=== PATIENT | female | born 1990 | race Caucasian/White ===

== ENCOUNTER 2018-11-26 10:43 | Outpatient (REF) | payer BC, SELFPAY ==
[2018-11-26 21:24] LABS: Abs Immature Grans 0.02 k/cumm (0.0-0.09); Absolute Basophil Count 0.03 k/cumm (0.0-0.2); Absolute Eosinophil Count 0.31 k/cumm (0.0-0.7); Absolute Neutrophil Count 3.67 k/cumm (1.2-6.7); Basophils % 0.4; Eosinophils % 3.9; HCT 33.4 % (36.0-46.0); HGB 10.2 g/dL (12.0-15.5); Immature Grans % 0.3; Lymphocytes % 42.9; Mean Corp. HGB Concentration 30.5 g/dL (32.0-36.0); Mean Corpuscular Hemoglobin 22.7 pg (27.0-33.0); Mean Corpuscular Volume 74.4 fL (80-95); Mean Platelet Volume 8.8 fL (8.0-11.0); Monocytes % 6.3; Neutrophils % 46.2; Platelet Count 463 x1000/uL (130-400); RBC 4.49 m/cumm (4.00-5.20); RBC Distribution Width 17.4 % (11.7-14.6); White Blood Cell Count 7.93 k/cumm (4.4-10.8)
[2018-11-26 21:38] LABS: Basophilic Stippling Present; Microcytosis 1+; Polychromasia Present
[2018-11-26 21:41] LABS: Ferritin 4 ng/mL (8-388); TSH 6.12 uIU/mL (0.358-3.74)
[2018-11-28 07:28] LABS: Vitamin D 25 Total 36.8 ng/ml (30-100)
== END 2018-11-26 11:03 ==
LOC: NCHCN 10:43
PROVIDERS: PCP Specialist/Technologist Athletic Trainer; Visit Provider Nurse Practitioner Family
DX: E03.9 Hypothyroidism, unspecified (principal); G25.81 Restless legs syndrome; G47.9 Sleep disorder, unspecified; F41.8 Other specified anxiety disorders
CPT/HCPCS: 82306; 82728; 84443; 85025

== ENCOUNTER 2018-11-26 14:11 | Outpatient (REF) | payer BC, SELFPAY ==
--- NOTE | 2018-11-26 13:30 | PAPFT_PTH ---
PATIENT: Jeanette Moise LOC: [facility] U#:[id number] AGE/SX: 28/F ROOM: RE11/26/[address]: ALEX Zarate : 1990 BED: DIS: 11/26/2018 SPEC #: [id number] RECD: 11/26/18 17:53 STATUS: YELITZA REHandy #: [id number] MICHAEL: 11/26/18 13:[address]: Mia Lozano DEPT: [facility] Cytology RECD BY: Sandra Stuart ENTERED: 11/26/18 17:54 SP TYPE: PAPFT OTHR DR: Russ Blount Tissues: 1 - CX/ENDOCX FOR PAP SMEARS Procedures: PAP THIN PREP/UVM Screening Comments: [id number]
== END 2018-11-26 14:31 ==
LOC: LBN 14:11
PROVIDERS: PCP Specialist/Technologist Athletic Trainer; Visit Provider Nurse Practitioner Family
DX: Z12.4 Encounter for screening for malignant neoplasm of cervix (principal); Z11.51 Encounter for screening for human papillomavirus (HPV)
CPT/HCPCS: 88142

== ENCOUNTER 2019-04-01 02:54 | Emergency (ER) | payer BC, SELFPAY ==
[2019-04-01 02:58] VITALS: BP 125/74; PULSE 88; RESP 21; TEMP 36.6; O2SAT 96
--- NOTE | 2019-04-01 03:07 | ED.GENADUL_ITS ---
Discharge Plan Disposition Patient Disposition: HOME Condition: Good Discharge Details Chief Complaint: Abd Prob Clinical Impression: Epigastric abdominal pain Primary Care Provider: Tita Fabian ED Provider: Rigo Knutson [place] Meds and New Rx's Prescriptions: New pantoprazole 40 mg tablet,delayed release (DR/EC) 40 mg PO DAILY Qty: 30 RF: 0 sucralfate 1 gram tablet 1 gm PO QACHS Qty: 60 RF: 0 Continued citalopram 20 mg tablet 40 mg PO DAILY RF: 0 norgestimate-ethinyl estradiol [Tri-Sprintec (28)] 0.18/0.215/0.25 mg-35 mcg (28) tablet 1 tab PO DAILY Qty: 28 RF: 12 multivitamin [Daily Multi-Vitamin] 1 EACH tablet 1 ea PO DAILY RF: 0 levothyroxine 75 MCG tablet 112 mcg PO DAILY RF: 0 gabapentin 100 MG capsule 100 mg PO DAILY RF: 0 Discharge Instructions Instructions: Epigastric Pain (ED) Additional Instructions: Laboratory studies tonight look good. Your blood counts, liver function, lipase are all normal. Does not appear to be a gallbladder problem. Suspect it is acid related. We will try treatment with proton pump inhibitor and sucralfate to coat the stomach. Follow-up with primary care towards the end of the week for reevaluation. Return to ED if he develops fevers, worsening pain, vomiting, black or bloody stool, other concerns. Referrals: Tita Fabian [Primary Care Provider] - Medical Decision Making Young female presenting with epigastric abdominal pain with associated nausea. Abdominal exam itself is relatively benign with minimal if any tenderness in the epigastric area. There is no right upper quadrant tenderness. Likely pain caused by acid related disease. Less likely to be liver, gallbladder, pancreatic issue. IV established. Will check laboratory studies. Will treat with IV metoclopramide and famotidine as well as p.o. GI cocktail and sucralfate. Patient is not . Urinalysis is unremarkable. CBC is normal. Chemistries are normal. Liver function is fine. Lipase is normal. Patient reports that nausea has resolved but pain is still present. Repeat abdominal exam continues to show no right upper quadrant tenderness. There is no guarding anywhere. There is minimal tenderness epigastric. We discussed CT scan. Not sure it will add anything given her normal laboratory studies and her relatively benign abdomen. Still suspect this is acid related. She is agreeable to trying proton pump inhibitor and Carafate for a few days and following up with primary care. If the pain is worse, she develops fever, develops persistent vomiting she will return to ED. Lab Data Lab results reviewed: Yes I reviewed the patient's lab results. HPI General Mode of arrival: ambulatory . Date/Time Provider Initiated Documentation: 04/01/19 03:04 . Limitations to Documentation: no limitations . Information obtained by: patient and RN notes reviewed . HPI Narrative: Patient presents to ED with epigastric abdominal pain. This has been present for 12 hours now. She had a similar episode last week but it finally resolved on its own. Tonight is not getting any better. She did take Tums with no relief. She has some nausea. There is some radiation to the back. No chest pain or shortness of breath. No vomiting or diarrhea. No lower abdominal pain. Has felt hot and cold throughout the day. She recently stopped smoking. She drinks maybe a cup of coffee a day. She rarely drinks alcohol or uses nonsteroidals. She has had her appendix out but still has her gallbladder. Related Data Home Medications Medication Instructions Recorded Confirmed multivitamin [Daily Multi-Vitamin] 1 ea PO DAILY 04/17/13 04/01/19 levothyroxine 112 mcg PO DAILY tab-cap 09/18/16 04/01/19 gabapentin 100 mg PO DAILY 09/28/17 04/01/19 citalopram 20 mg tablet 40 mg PO DAILY 11/26/18 04/01/19 norgestimate-ethinyl estradiol 1 tab PO DAILY #28 tab 11/26/18 04/01/19 pantoprazole 40 mg PO DAILY #30 tab 04/01/19 sucralfate 1 gm PO QACHS #60 tab 04/01/19 Previous Rx's Medication Instructions Recorded norgestimate-ethinyl estradiol 1 tab PO DAILY #28 tab 11/26/18 pantoprazole 40 mg PO DAILY #30 tab 04/01/19 sucralfate 1 gm PO QACHS #60 tab 04/01/19 Allergies Allergy/AdvReac Type Severity Reaction Status Date / Time No Known Drug Allergies Allergy Verified 04/01/19 03:01 General Stated Complaint: Abd Prob ROBIN: 3 Review of Systems Review of Systems Narrative: 03/31 Review of Systems completed and is negative except as stated above in HPI (Systems reviewed: Const, Eyes, ENT, Resp, CV, GI, , MSK, Skin, Neuro) PFSH Medical History Contraception (Acute) Hypothyroid (Acute 04/21/14) Surgical History Appendectomy Age 11yrs Social History Smoking/Tobacco Use Status: Current-Occasional Alcohol Intake: never Drug use: Never Substance use type: does not use Do you feel safe at home: Yes Do you feel safe in your relationship?: Yes Exam Narrative Exam Narrative: Vitals: Afebrile with normal vitals and pulse oximetry. Const: WDWN female in NAD. HEENT: NC/AT. Normal facial exam. Eyes: Normal conjunctiva and sclera. Neck: Supple. Trachea midline. Lungs: Normal respiratory effort. Lungs are clear. Cor: RRR without murmur/gallop. Good radial pulses. GI: Soft. NT/ND. No guarding or rebound. Neuro: A+O x 3. CN grossly in tact. Good strength and no focal deficit. Ext: No C/C/E. No calf tenderness. Skin: Warm and dry without rash. Course Vital Signs Vital signs: Vital Signs Temperature 97.9 F 04/01/19 02:58 Pulse 88 04/01/19 02:58 Respiratory Rate 21 04/01/19 02:58 Blood Pressure 125/74 04/01/19 02:58 Pulse Oximetry 96 04/01/19 02:58 Temperature 97.9 F 04/01/19 02:58 Temperature Source Skin 04/01/19 02:58 Pulse 88 04/01/19 02:58 Respiratory Rate 21 04/01/19 02:58 Respiratory Effort 04/01/19 03:04 Blood Pressure 125/74 04/01/19 02:58 Pulse Oximetry 96 04/01/19 02:58 Oxygen Delivery Method Room Air 04/01/19 02:58 Oxygen Flow Rate 0 04/01/19 02:58 Pain Level 6 04/01/19 02:58
[2019-04-01] MEDS: Sucralfate 1 GM TAB PO (03:26)
[2019-04-01] MEDS: Metoclopramide 10 MG/2 ML VIAL IVP (03:27)
[2019-04-01] MEDS: FAMOTIDINE 20 MG/50 ML BAG 100 MG IVPB (03:28)
[2019-04-01] MEDS: Normal Saline 50 ML 100 ML (03:28)
[2019-04-01 03:39] LABS: Abs Immature Grans 0.01 k/cumm (0.0-0.09); Absolute Basophil Count 0.03 k/cumm (0.0-0.2); Absolute Eosinophil Count 0.34 k/cumm (0.0-0.7); Absolute Lymphocyte Count 4.94 k/cumm (1.2-3.4); Absolute Monocyte Count 0.54 k/cumm (0.11-0.7); Absolute Neutrophil Count 3.96 k/cumm (1.2-6.7); Basophils % 0.3; Eosinophils % 3.5; HCT 39.5 % (36.0-46.0); HGB 13.2 g/dL (12.0-15.5); Immature Grans % 0.1; Lymphocytes % 50.3; Mean Corp. HGB Concentration 33.4 g/dL (32.0-36.0); Mean Corpuscular Hemoglobin 29.9 pg (27.0-33.0); Mean Corpuscular Volume 89.6 fL (80-95); Mean Platelet Volume 8.8 fL (8.0-11.0); Monocytes % 5.5; Neutrophils % 40.3; Platelet Count 369 x1000/uL (130-400); RBC 4.41 m/cumm (4.00-5.20); RBC Distribution Width 13.1 % (11.7-14.6); White Blood Cell Count 9.82 k/cumm (4.4-10.8)
[2019-04-01 03:41] LABS: Bilirubin Negative (Negative); Blood Trace-lysed (Negative); Clarity Clear (Clear); Glucose Negative (Negative); Ketones Negative (Negative); Leukocyte Esterase Negative (Negative); Nitrite Negative (Negative); Urobilinogen 0.2 EU/dL (Up TO 0.2)
[2019-04-01 03:50] LABS: Bacteria Few HPF (Negative); C & S Indicated? No; Casts Negative LPF (Negative); Crystals Negative HPF (Negative); Epithelial Cells Few HPF (Negative); Mucus Negative (Negative); WBC Negative HPF (0-5)
[2019-04-01 03:58] LABS: ALT 15 U/L (14-59); AST 13 U/L (15-37); Albumin 3.1 g/dL (3.4-5.0); Alkaline Phosphatase 63 U/L (46-116); Anion Gap 8.8 mmol/L (3-11); BUN 9 mg/dL (7-18); Bilirubin, Total 0.2 mg/dL (0.2-1.0); CO2 27.2 mmol/L (21.0-32.0); CREATININE 0.76 mg/dL (0.55-1.02); Calcium 8.3 mg/dL (8.5-10.1); Chloride 103 mmol/L (98-107); Glucose 128 mg/dL (70-100); Lipase 99 U/L (73-393); Potassium 3.6 mmol/L (3.5-5.1); Sodium 139 mmol/L (136-145); Total Protein 7.6 g/dL (6.4-8.2)
[2019-04-01 04:23] VITALS: BP 124/67; PULSE 84; RESP 18; TEMP 36.8; O2SAT 99
== END 2019-04-01 04:25 | disposition home or self-care (01) ==
PROVIDERS: Emergency Provider Emergency Medicine; PCP Nurse Practitioner Family
DX: R10.13 Epigastric pain (principal); R11.0 Nausea
CPT/HCPCS: 36415; 80053; 81025; 83690; 96365; 96375; 99284; 81003; 81015; 85025; J2765

== ENCOUNTER 2019-04-07 15:47 | Outpatient (REF) | payer BC, SELFPAY ==
[2019-04-07 22:37] LABS: TSH 4.95 uIU/mL (0.36-3.74)
== END 2019-04-07 16:07 ==
LOC: NCHCN 15:47
PROVIDERS: PCP Nurse Practitioner Family; Visit Provider Nurse Practitioner Family
DX: R10.9 Unspecified abdominal pain (principal); G47.00 Insomnia, unspecified; E03.9 Hypothyroidism, unspecified
CPT/HCPCS: 84443

== ENCOUNTER 2019-04-14 01:49 | Outpatient (CLI) | payer BC, SELFPAY ==
--- NOTE | 2019-04-14 07:00 | DI.US_ITS ---
EXAM: US ABDOMEN CLINICAL HISTORY: EPIGASTRIC PAIN ASSOCITED WITH NAUSEA AND TECHNIQUE: Ultrasound performed using standard protocol. COMPARISON: No exams were available for comparison FINDINGS: The aorta and IVC are unremarkable as visualized. The liver measures 16.7 cm in length. No hepatic mass is seen. There is hepatopetal flow through the portal vein. The gallbladder is unremarkable. No stones or gallbladder wall thickening is present. There is a negative sonographic Hastings's sign. The common duct is within normal limits at 3.1 mm. The pancreas is unremarkable as visualized. The spleen and kidneys are unremarkable. No free fluid is seen in the abdomen. IMPRESSION: Unremarkable examination.
== END 2019-04-14 02:09 ==
PROVIDERS: PCP Nurse Practitioner Family; Visit Provider Nurse Practitioner Family
DX: R10.13 Epigastric pain (principal); R11.0 Nausea
CPT/HCPCS: 76700

== ENCOUNTER 2019-07-03 12:53 | Outpatient (REF) | payer BC, SELFPAY ==
[2019-07-03 22:38] LABS: TSH 0.66 uIU/mL (0.36-3.74)
[2019-07-03 23:13] LABS: Bacteria Few HPF (Negative); C & S Indicated? No/Sq. Contamination; Crystals Negative HPF (Negative); Epithelial Cells Moderate HPF (Negative); Mucus Negative (Negative); RBC 0-2 HPF (0-2); WBC 0-2 HPF (0-5)
== END 2019-07-03 13:13 ==
LOC: NCHCN 12:53
PROVIDERS: PCP Nurse Practitioner Family; Visit Provider Nurse Practitioner Family
DX: E03.9 Hypothyroidism, unspecified (principal); Z87.448 Personal history of other diseases of urinary system
CPT/HCPCS: 81015; 84443

== ENCOUNTER 2020-01-16 12:29 | Outpatient (REF) | payer BC, SELFPAY ==
--- NOTE | 2020-01-16 11:00 | PAPFT_PTH ---
PATIENT: Jeanette Moise LOC: [facility] U#:[id number] AGE/SX: 29/F ROOM: RE01/16/[address]: ALEX Zarate : 1990 BED: DIS: 01/16/2020 SPEC #: [id number] RECD: 01/16/20 12:43 STATUS: YELITZA REHandy #: [id number] MICHAEL: 01/16/20 11:[address]: Mia Lozano DEPT: [facility] Cytology RECD BY: Sandra Stuart ENTERED: 01/16/20 12:44 SP TYPE: PAPFT OTHR DR: Tita Fabian Tissues: 1 - CX/ENDOCX FOR PAP SMEARS Procedures: PAP THIN PREP/UVM Screening Comments: [id number]
[2020-01-19 14:04] LABS: Chlamydia Result Negative (Negative); GC Result Negative (Negative)
== END 2020-01-16 12:49 ==
LOC: LBN 12:29
PROVIDERS: PCP Nurse Practitioner Family; Visit Provider Nurse Practitioner Family
DX: Z11.3 Encounter for screening for infections with a predominantly sexual mode of transmission (principal)
CPT/HCPCS: 87491; 87591; 88142

== ENCOUNTER 2020-06-04 17:05 | Outpatient (REF) | payer BC, SELFPAY ==
[2020-06-07 12:38] LABS: Chlamydia Result Negative (Negative); GC Result Negative (Negative)
== END 2020-06-04 17:25 ==
LOC: LBN 17:05
PROVIDERS: PCP Nurse Practitioner Family; Visit Provider Nurse Practitioner Family
DX: Z11.3 Encounter for screening for infections with a predominantly sexual mode of transmission (principal)
CPT/HCPCS: 87491; 87591

== ENCOUNTER 2020-08-23 04:28 | Outpatient (CLI) | payer BC, SELFPAY ==
[2020-08-23 15:41] LABS: FREE T4 0.98 ng/dL (0.76-1.46); TSH 0.86 uIU/mL (0.36-3.74)
[2020-08-23 16:07] LABS: HCG Quant, Pregnancy 1 mIU/mL (1-3)
== END 2020-08-23 04:29 | disposition home or self-care (01) ==
LOC: LBO 04:28
PROVIDERS: PCP Nurse Practitioner Family; Visit Provider Nurse Practitioner Family
DX: E03.9 Hypothyroidism, unspecified (principal); N92.6 Irregular menstruation, unspecified
CPT/HCPCS: 36415; 84439; 84443; 84702

== ENCOUNTER 2020-10-18 11:13 | Outpatient (CLI) | payer BC, SELFPAY | END 2020-10-18 11:14 | disposition home or self-care (01) | LOC: LBO 11:15 | PROVIDERS: PCP Nurse Practitioner Family; Visit Provider Advanced Practice Midwife | DX: O20.8 Other hemorrhage in early pregnancy (principal); O30.041 Twin pregnancy, dichorionic/diamniotic, first trimester; Z3A.01 Less than 8 weeks gestation of pregnancy | CPT/HCPCS: 36415; 86850; 86900; 86901; 84702 ==

== ENCOUNTER 2020-11-03 07:35 | Outpatient (CLI) | payer BC, SELFPAY ==
[2020-11-03 14:53] LABS: Abs Immature Grans 0.03 10^3/uL (0.0-0.06); Absolute Basophil Count 0.02 10^3/uL (0.0-0.2); Absolute Eosinophil Count 0.15 10^3/uL (0.0-0.7); Absolute Lymphocyte Count 3.68 10^3/uL (1.2-3.4); Absolute Monocyte Count 0.64 10^3/uL (0.1-0.8); Absolute Neutrophil Count 5.52 10^3/uL (1.2-6.7); Basophils % 0.2; Eosinophils % 1.5; HCT 38.4 % (36.0-46.0); HGB 13.2 g/dL (11.2-15.7); Immature Grans % 0.3; Lymphocytes % 36.7; MCH 30.5 pg (27.0-33.0); MCHC 34.4 % (32.0-36.0); MCV 88.7 fL (80-95); MPV 8.6 fL (8.0-11.0); Monocytes % 6.4; Neutrophils % 54.9; Nucleated RBC 0 %; Platelet Count 348 10^3/uL (130-400); RBC 4.33 10^6/uL (3.93-5.22); RDW 11.9 % (11.7-14.6); RDW-SD 38.6 fL; WBC 10.04 10^3/uL (4.4-10.8)
[2020-11-03 15:00] LABS: Glucose,1 Hr (Glucola) 145 mg/dL (80-140)
[2020-11-03 16:54] LABS: *AMPHETAMINES SCREEN URINE Negative (Negative); *BARBITURATES SCREEN URINE Negative (Negative); *BENZODIAZEPINES SCREEN URINE Negative (Negative); Cannabinoids THC Negative (Negative); Cocaine Screen,Urine Negative (Negative); METHADONE URINE SCREEN Negative (Negative); OPIATES URINE SCREEN Negative (Negative)
[2020-11-03 16:55] LABS: Tricyclic Antidepressants Negative (Negative)
[2020-11-03 17:06] LABS: TSH 4.07 uIU/mL (0.36-3.74)
[2020-11-03 17:23] LABS: FREE T4 0.94 ng/dL (0.76-1.46)
[2020-11-05 08:43] LABS: Hepatitis B Surface Ag Negative (Negative)
[2020-11-05 09:25] LABS: Hepatitis C Ab w Rflx HCV PCR Negative (Negative)
[2020-11-05 09:47] LABS: HIV-1/2 Ag & Ab Screen Negative (Negative)
[2020-11-05 12:02] LABS: Varicella IgG Antibody Positive (See Note)
[2020-11-05 12:06] LABS: Rubella IgG Ab (UVM) Positive (See Note)
[2020-11-05 14:11] LABS: Chlamydia Result Negative (Negative); GC Result Negative (Negative)
[2020-11-06 10:03] LABS: Syphilis Total Ab w/Reflex Nonreactive (Nonreactive)
[2020-11-10 10:24] LABS: Buprenorphine Negative ng/mL (Cutoff: 5.0); Norbuprenorphine Negative ng/mL (Cutoff: 2.5)
== END 2020-11-03 07:36 | disposition home or self-care (01) ==
LOC: LBO 07:38
PROVIDERS: PCP Nurse Practitioner Family; Visit Provider Advanced Practice Midwife
DX: O99.810 Abnormal glucose complicating pregnancy (principal); O26.891 Other specified pregnancy related conditions, first trimester; N89.8 Other specified noninflammatory disorders of vagina; Z11.3 Encounter for screening for infections with a predominantly sexual mode of transmission; Z11.4 Encounter for screening for human immunodeficiency virus [HIV]; Z11.59 Encounter for screening for other viral diseases; Z01.84 Encounter for antibody response examination; O30.041 Twin pregnancy, dichorionic/diamniotic, first trimester
CPT/HCPCS: 36415; 80307; 82950; 86787; 86803; 86850; 86900; 86901; 87340; 87389; 87491; 87591; 84439; 84443; 85025; 86762; 86780; 87086; 87480; 87510; 87660

== ENCOUNTER 2020-11-10 03:21 | Outpatient (CLI) | payer BC, SELFPAY ==
[2020-11-10 10:25] LABS: Glucose 1 Hour 190 mg/dL
[2020-11-10 12:21] LABS: Glucose 3 Hour 120 mg/dL
--- NOTE | 2020-11-18 13:53 | W.DIABETESNO ---
Date of service: 11/18/20 Time of Service: 13:53 Diabetes Note NOTE: Spoke to Jeanette on phone and reviewed diet principles and blood sugar goals for GDM. 9 weeks gestation with twins with BMI > 35 at conception, failed early glucola. Bar has been testing her BS QID as recommended and reports fasting < 95, post prandials < 140 mg/dl. Diet recall indicates well balanced meals but has n/v in AM limiting po intake at breakfast. Will follow up in person at next C meeting. Time Spent in Nutritional Counseling and Treatment: 20 min
--- NOTE | 2020-11-18 13:59 | W.DIABETESNO ---
Date of service: 11/18/20 Time of Service: 13:59 Diabetes Note NOTE: Met with
== END 2020-11-10 03:22 | disposition home or self-care (01) ==
PROVIDERS: PCP Nurse Practitioner Family; Visit Provider Advanced Practice Midwife
DX: O99.810 Abnormal glucose complicating pregnancy (principal); Z3A.13 13 weeks gestation of pregnancy
CPT/HCPCS: 36410; 82951

== ENCOUNTER 2020-12-22 02:44 | Outpatient (CLI) | payer BC, SELFPAY ==
[2020-12-24 16:04] LABS: AFP 75.8 ng/mL; Calculated age at EDD 29 years; Cigarette smoking status non-Smoker; GA used in risk estimate Scan estimate; INHIBIN 133 pg/mL; IVF Pregnancy No; Initial or repeat testing Initial testing; Insulin dependent diabetes No; Maternal Weight 201 lbs; Number of Fetuses Twins; Physician Phone Number 802-748-7300; Prev Down(T21)/Trisomy Pregnan No; Prev Pregnancy w/NTD No; RECOMMENDED FOLLOW UP None.; Results Summary Normal risk; hCG, TOTAL MoM 0.59 MoM; uE3 2.06 ng/mL; uE3 MoM 1.02 MoM
== END 2020-12-22 02:45 | disposition home or self-care (01) ==
LOC: LBO 02:44
PROVIDERS: PCP Nurse Practitioner Family; Visit Provider Obstetrics & Gynecology
DX: Z34.92 Encounter for supervision of normal pregnancy, unspecified, second trimester (principal); Z36.89 Encounter for other specified antenatal screening; Z3A.16 16 weeks gestation of pregnancy
CPT/HCPCS: 36415; 81511

== ENCOUNTER 2021-01-04 09:33 | Outpatient (CLI) | payer BC, SELFPAY ==
[2021-01-04 12:30] LABS: Abs Immature Grans 0.04 10^3/uL (0.0-0.06); Absolute Basophil Count 0.05 10^3/uL (0.0-0.2); Absolute Eosinophil Count 0.18 10^3/uL (0.0-0.7); Absolute Lymphocyte Count 3.29 10^3/uL (1.2-3.4); Absolute Monocyte Count 0.65 10^3/uL (0.1-0.8); Absolute Neutrophil Count 6.16 10^3/uL (1.2-6.7); Basophils % 0.5; Eosinophils % 1.7; HCT 36.6 % (36.0-46.0); HGB 12.4 g/dL (11.2-15.7); Immature Grans % 0.4; Lymphocytes % 31.7; MCH 30.2 pg (27.0-33.0); MCHC 33.9 % (32.0-36.0); MCV 89.3 fL (80-95); MPV 8.7 fL (8.0-11.0); Monocytes % 6.3; Neutrophils % 59.4; Nucleated RBC 0 %; Platelet Count 307 10^3/uL (130-400); RDW 12.6 % (11.7-14.6); RDW-SD 40.7 fL; WBC 10.37 10^3/uL (4.4-10.8)
[2021-01-05 09:49] LABS: HBs Antibody, Quant 59.8 mIU/mL (See Note); Hepatitis B Surface Ab Positive (See Note)
[2021-01-07 12:46] LABS: TB Interpretation Negative (Negative)
== END 2021-01-04 09:34 | disposition home or self-care (01) ==
LOC: LBO 09:34
PROVIDERS: Obstetrics & Gynecology; PCP Nurse Practitioner Family; Visit Provider Nurse Practitioner Family
DX: O30.042 Twin pregnancy, dichorionic/diamniotic, second trimester (principal); Z3A.19 19 weeks gestation of pregnancy; Z02.1 Encounter for pre-employment examination; Z01.84 Encounter for antibody response examination; Z11.1 Encounter for screening for respiratory tuberculosis
CPT/HCPCS: 36415; 86706; 85025; 86480

== ENCOUNTER 2021-02-23 04:18 | Outpatient (CLI) | payer OTHER, SELFPAY | END 2021-02-23 04:19 | disposition home or self-care (01) | LOC: LBO 04:18 | PROVIDERS: PCP Nurse Practitioner Family; Visit Provider Obstetrics & Gynecology Gynecology | DX: O99.282 Endocrine, nutritional and metabolic diseases complicating pregnancy, second trimester (principal); O30.042 Twin pregnancy, dichorionic/diamniotic, second trimester; E03.9 Hypothyroidism, unspecified; Z3A.26 26 weeks gestation of pregnancy | CPT/HCPCS: 36415; 84443 ==

== ENCOUNTER 2021-03-10 00:40 | Outpatient (CLI) | payer OTHER, SELFPAY ==
--- NOTE | 2021-03-10 | DI.US_ITS ---
Exam(s) US OB AUDRA WEIGHT EXAM: US OB AUDRA WEIGHT CLINICAL HISTORY: GROWTH,AUDRA,TWINS,o30.002. TECHNIQUE: Transabdominal obstetrical ultrasound was performed. COMPARISON: US US OB 2-3 TRIMESTER TWINS from 12/31/2020 US US OB AUDRA WEIGHT from 03/10/2021 US OB AUDRA WEIGHT from 03/10/2021 FINDINGS: Again noted is viable twin gestation. TWIN A is on the maternal left side, presently in cephalic position with heart rate 157 BPM. P osterior placenta grade 2; normal amount of amniotic fluid, with AUDRA = 21.[address] twin A at approximately 28 weeks and 5 days gestational age, implying MESERET of May 28, 2021. BPD measures 28 weeks and 3 days Head circumference measures 28 weeks and 6 days Abdominal circumference measures 28 weeks and 5 days Femur length measures 28 weeks and 6 days Estimated weight is 1276 grams This fetus is at the 49th percentile on the Hadlock scale. TWIN B Is on the maternal right side, presently in cephalic position. heart rate = 147 BPM Placenta is posterior-fundal, grade 2 Normal amount of amniotic fluid with AUDRA = 21.[address] twin B at approximately 29 weeks, implying MESERET of May 26, 2021 BPD measures 28 weeks and 6 days Head circumference measures 29 weeks and 0 days Abdominal circumference measures 29 weeks and 0 days Femur length measures 29 weeks and 2 days Estimated weight is 1333 grams This fetus is at the 63rd percentile on the Hadlock scale IMPRESSION:: Viable twin gestation, as described above. DATA REPOSITORY:
== END 2021-03-10 01:00 ==
PROVIDERS: PCP Nurse Practitioner Family; Visit Provider Obstetrics & Gynecology Gynecology
DX: O30.002 Twin pregnancy, unspecified number of placenta and unspecified number of amniotic sacs, second trimester (principal); Z34.82 Encounter for supervision of other normal pregnancy, second trimester
CPT/HCPCS: 76816

== ENCOUNTER 2021-04-06 00:57 | Outpatient (CLI) | payer OTHER, SELFPAY ==
--- NOTE | 2021-04-06 | DI.US_ITS ---
Exam(s) US OB AUDRA WEIGHT EXAM: US OB AUDRA WEIGHT CLINICAL HISTORY: Growth, AUDRA-Twins,o30.003. TECHNIQUE: Transabdominal obstetrical ultrasound performed. COMPARISON: US US OB AUDRA WEIGHT from 03/10/2021 US US OB AUDRA WEIGHT from 04/06/2021 US US OB AUDRA WEIGHT from 04/06/2021 FINDINGS: Transabdominal obstetrical ultrasound performed. FINDINGS: Number of fetuses: This is a twin gestation. BIOMETRIC DATA BABY A: BPD: 80 mm = 32 weeks HC: 290 mm = 32 weeks AC: 282 mm = 32 weeks 2 days FL: 63 mm = 32 weeks 4 days EFW: 1947 grms 44% Composite Age: 32 weeks 2 days EDC: 05/30/2021 Heart Rate: 175BPM Amniotic fluid index: 11.3 cm. Visually, amount of fluid is within normal limits. position: Cephalic. Placental location: There is a posterior grade 2 placenta. No evidence of previa. BIOMETRIC DATA BABY B: BPD: 82 mm = 32 weeks 5 days HC: 293 mm = 32 weeks 2 days AC: 285 mm = 32 weeks 3 days FL: 63 mm = 32 weeks 5 days EFW: 2005 grms 54% Composite Age: 32 weeks 4 days EDC: 05/28/2021 Heart Rate: 158BPM Amniotic fluid index: 11.3 cm. Visually, amount of fluid is within normal limits. position: The fetus is in the transverse position with the head to the right. Placental location: There is a posterior grade 2 placenta. No evidence of previa. IMPRESSION: 1. There is a twin gestation. 2. Estimated gestational age baby a is 32 weeks 2 days and for baby B 32 weeks 4 days. There has bee n normal interval growth. 3. Amniotic fluid index is 11.3 cm. Visually within normal limits. DATA REPOSITORY:
== END 2021-04-06 01:17 ==
PROVIDERS: PCP Nurse Practitioner Family; Visit Provider Obstetrics & Gynecology
DX: O30.003 Twin pregnancy, unspecified number of placenta and unspecified number of amniotic sacs, third trimester (principal)
CPT/HCPCS: 76816

== ENCOUNTER 2021-04-06 09:39 | Outpatient (CLI) | payer OTHER, SELFPAY ==
[2021-04-06 10:14] LABS: Abs Immature Grans 0.16 10^3/uL (0.0-0.06); Absolute Eosinophil Count 0.14 10^3/uL (0.0-0.7); Absolute Monocyte Count 0.91 10^3/uL (0.1-0.8); Basophils % 0.3; Eosinophils % 1.2; HCT 30.3 % (36.0-46.0); HGB 9.4 g/dL (11.2-15.7); Immature Grans % 1.4; MCH 25.8 pg (27.0-33.0); MCV 83.2 fL (80-95); Monocytes % 7.9; Neutrophils % 56.2; Nucleated RBC 0 %; Platelet Count 244 10^3/uL (130-400); RBC 3.64 10^6/uL (3.93-5.22); RDW 13.6 % (11.7-14.6); RDW-SD 41.2 fL
[2021-04-06 10:15] LABS: Absolute Basophil Count 0.03 10^3/uL (0.0-0.2); Absolute Neutrophil Count 6.46 10^3/uL (1.2-6.7)
[2021-04-06 10:35] LABS: TSH (W/Ref FT4) 1.63 uIU/mL (0.36-3.74)
== END 2021-04-06 09:40 | disposition home or self-care (01) ==
LOC: LBO 09:40
PROVIDERS: PCP Nurse Practitioner Family; Visit Provider Obstetrics & Gynecology
DX: O30.002 Twin pregnancy, unspecified number of placenta and unspecified number of amniotic sacs, second trimester (principal)
CPT/HCPCS: 36415; 84443; 85025

== ENCOUNTER 2021-04-22 09:01 | Outpatient (CLI) | payer OTHER, SELFPAY ==
[2021-04-22 09:06] VITALS: BP 142/89; PULSE 65; TEMP 37.1
[2021-04-22 09:31] VITALS: BP 142/89; PULSE 65
[2021-04-22 09:53] VITALS: BP 142/89; PULSE 65; TEMP 37.1
--- NOTE | 2021-04-22 09:53 | W.OBNST ---
Date of service: 04/22/21 Time of Service: 11:02 NST Evaluation Reason for NST Reasons for Nonstress Test: MULTIPLE GESTATION Gestational Age Gestational Age in Weeks and Days: 34 Weeks and 3Days Test and Monitor Explained Test/Monitor Explained: Test Explained, Monitor Explained and Patient Verbalized Understanding Vital Signs Blood Pressure: 142/89 Pulse: 65 Temperature: 98.8 F NST Information Time on Monitor: 09:17 Date off Monitor: 04/22/21 Time off Monitor: 08:35 NST Interventions: PO Hydration and Reposition Patient NST Evaluation Patient States Movement: Present FHR Baseline: 125 Variability: Moderate 6-25 bpm Accelerations: 15x15 Decelerations: None NST Results: Reactive NST Evaluation Baby B Patient States Movement: Present FHR Baseline: 130 Variability: Moderate 6-25 bpm Accelerations: 15x15 Decelerations: None NST Results: Reactive Note NST Note Note: [facility]. Fundal height had decreased from last visit however Baby B is transverse. I requested NST for both twins, which was reactive. Bedside TA U/S showed Baby B with largest fluid pocket 4.16cm, breathing motion, gross and fine body movement BPP=10. Baby A largest fluid pocket 7.81cm. Also with breathing, fine and gross movement present. VTX, head to maternal R. BPP=10. Pt will f/u on 04/25/21 for routine visit. NST Reviewed and Verified by: Lou Dodson
== END 2021-04-22 09:35 | disposition home or self-care (01) ==
LOC: BCD 09:01 → OBS 09:04
PROVIDERS: PCP Nurse Practitioner Family; Visit Provider Obstetrics & Gynecology Gynecology
DX: O30.043 Twin pregnancy, dichorionic/diamniotic, third trimester (principal); Z3A.34 34 weeks gestation of pregnancy
CPT/HCPCS: 59025 ×2

== ENCOUNTER 2021-04-25 09:45 | Outpatient (CLI) | payer OTHER, SELFPAY ==
[2021-04-25 10:14] VITALS: BP 141/76; PULSE 78; TEMP 36.7
--- NOTE | 2021-04-25 11:11 | W.OBNST ---
Date of service: 04/25/21 Time of Service: 11:12 NST Evaluation Reason for NST Reasons for Nonstress Test: MULTIPLE GESTATION Gestational Age Gestational Age in Weeks and Days: 34 Weeks and 6Days Test and Monitor Explained Test/Monitor Explained: Patient Verbalized Understanding Vital Signs Blood Pressure: 141/76 Pulse: 78 Temperature: 98.1 F NST Information Date on Monitor: 04/25/21 Time on Monitor: 10:00 Date off Monitor: 04/25/21 Time off Monitor: 10:52 Total Time on Monitor: 52 NST Interventions: PO Hydration and Notify Provider NST Evaluation Patient States Movement: Present FHR Baseline: 135 Variability: Moderate 6-25 bpm Accelerations: 15x15 Decelerations: None NST Results: Reactive NST Evaluation Baby B Patient States Movement: Present FHR Baseline: 130 Variability: Moderate 6-25 bpm Accelerations: 15x15 Decelerations: None NST Results: Reactive Note NST Note Note: here for NST with di/di twins and A1GDM. FS all wnl. Weekly NSTs/visits with 38wk induction NST Reviewed and Verified by: Nelly King
[2021-04-25 11:13] VITALS: BP 141/76; PULSE 78; TEMP 36.7
== END 2021-04-25 11:06 | disposition home or self-care (01) ==
LOC: BCD 09:46 → OBS 10:14
PROVIDERS: PCP Nurse Practitioner Family; Visit Provider Obstetrics & Gynecology Gynecology
DX: O30.043 Twin pregnancy, dichorionic/diamniotic, third trimester (principal); Z3A.34 34 weeks gestation of pregnancy
CPT/HCPCS: 59025 ×2

== ENCOUNTER 2021-04-25 16:23 | Outpatient (REF) | payer OTHER, SELFPAY | END 2021-04-25 16:24 | disposition home or self-care (01) | LOC: LBN 16:23 | PROVIDERS: PCP Nurse Practitioner Family; Visit Provider Obstetrics & Gynecology | DX: Z34.93 Encounter for supervision of normal pregnancy, unspecified, third trimester (principal); Z36.85 Encounter for antenatal screening for Streptococcus B | CPT/HCPCS: 87081 ==

== ENCOUNTER 2021-05-03 07:00 | Outpatient (CLI) | payer OTHER, MEDICAID, SELFPAY ==
[2021-05-03 08:00] VITALS: BP 142/85; PULSE 78; TEMP 36.8
--- NOTE | 2021-05-03 10:38 | W.OBNST ---
Date of service: 05/03/21 Time of Service: 10:38 NST Evaluation Reason for NST Reasons for Nonstress Test: MULTIPLE GESTATION Gestational Age Gestational Age in Weeks and Days: 36 Weeks and 0Days Test and Monitor Explained Test/Monitor Explained: Test Explained, Monitor Explained and Patient Verbalized Understanding Vital Signs Blood Pressure: 142/85 Pulse: 78 Temperature: 98.2 F NST Information Date on Monitor: 05/03/21 Time on Monitor: 07:15 Date off Monitor: 05/03/21 Time off Monitor: 07:50 Total Time on Monitor: 35 NST Interventions: None NST Evaluation Patient States Movement: Present FHR Baseline: 125 Variability: Moderate 6-25 bpm Accelerations: 15x15 Decelerations: None NST Results: Reactive NST Evaluation Baby B Patient States Movement: Present FHR Baseline: 130 Variability: Moderate 6-25 bpm Accelerations: 15x15 Decelerations: None NST Results: Reactive Note NST Note Note: Nonstress test for twin gestation at 36 weeks. also complicated by gestational diabetes with diet control. Doing well. Category 1 strip for fetus A. Category 1 strip for fetus B. No regular contractions. Mildly elevated blood pressures. Laboratory studies obtained. We will follow-up for nonstress testing on Sunday. Kick counts discussed. Symptom discussed NST Reviewed and Verified by: Hailey Chong
[2021-05-03 10:39] VITALS: BP 142/85; PULSE 78; TEMP 36.8
[2021-05-03 11:13] LABS: HCT 27.8 % (36.0-46.0); HGB 8.7 g/dL (11.2-15.7); MCH 25.5 pg (27.0-33.0); MCHC 31.3 % (32.0-36.0); MCV 81.5 fL (80-95); RBC 3.41 10^6/uL (3.93-5.22); RDW 15.7 % (11.7-14.6); WBC 10.47 10^3/uL (4.4-10.8)
[2021-05-03 11:14] LABS: Abs Immature Grans 0.13 10^3/uL (0.0-0.06); Absolute Basophil Count 0.04 10^3/uL (0.0-0.2); Absolute Lymphocyte Count 3.61 10^3/uL (1.2-3.4); Absolute Monocyte Count 0.73 10^3/uL (0.1-0.8); Absolute Neutrophil Count 5.86 10^3/uL (1.2-6.7); Basophils % 0.4; Immature Grans % 1.2; Lymphocytes % 34.5; MPV 9.2 fL (8.0-11.0); Neutrophils % 55.9; Nucleated RBC 0 %; Platelet Count 220 10^3/uL (130-400)
[2021-05-03 11:15] LABS: Albumin 2.2 g/dL (3.4-5.0); BUN 11 mg/dL (7-18); CREATININE 0.8 mg/dL (0.55-1.02); Calcium 8.3 mg/dL (8.5-10.1); Glucose 78 mg/dL (74-106); Total Protein 6.3 g/dL (6.4-8.2)
[2021-05-03 11:16] LABS: ALT 24 U/L (14-59); AST 28 U/L (15-37); Alkaline Phosphatase 152 U/L (46-116); Anion Gap 10.7 mmol/L (3-11); Bilirubin, Total 0.4 mg/dL (0.2-1.0); CO2 22.3 mmol/L (21.0-32.0); Chloride 104 mmol/L (98-107); Sodium 137 mmol/L (136-145)
[2021-05-03 11:21] LABS: PROTEIN 68.2 mg/dL
[2021-05-03 11:22] LABS: COMMENT (LAB VIEW ONLY) 52.25 mg/dL
[2021-05-03 12:30] LABS: Bilirubin Negative (Negative); Blood Negative (Negative); Clarity Clear (Clear); Glucose Negative (Negative); Ketones Negative (Negative); Leukocyte Esterase Negative (Negative); Nitrite Negative (Negative); Specific Gravity 1.015 (1.005-1.025); Urobilinogen 0.2 EU/dL (Up TO 0.2)
[2021-05-03 12:32] LABS: COMMENT (LAB VIEW ONLY) 52.45 mg/dL; PROTEIN 67.1 mg/dL; Prot/Crea Ur Ratio 1.27
[2021-05-03 12:43] LABS: Bacteria Few HPF (Negative); C & S Indicated? No; Casts Negative LPF (Negative); Crystals Negative HPF (Negative); Epithelial Cells Many HPF (Negative); Mucus Negative (Negative); Other Cells Negative (Negative); RBC Negative HPF (0-2); WBC 0-2 HPF (0-5)
== END 2021-05-03 10:26 | disposition home or self-care (01) ==
LOC: BCD 09:23 → OBS 05-04 09:52
PROVIDERS: Obstetrics & Gynecology; PCP Nurse Practitioner Family; Visit Provider Obstetrics & Gynecology
DX: O30.043 Twin pregnancy, dichorionic/diamniotic, third trimester (principal); Z3A.36 36 weeks gestation of pregnancy; O24.410 Gestational diabetes mellitus in pregnancy, diet controlled
CPT/HCPCS: 59025 ×2; 80053; 81003; 81015; 82565; 84156; 85025

== ENCOUNTER 2021-05-03 16:36 | Inpatient (IN) | payer OTHER, MEDICAID, SELFPAY ==
--- NOTE | 2021-05-03 | DI.US_ITS ---
Exam(s) US OB AUDRA WEIGHT TWINS EXAM: US OB AUDRA WEIGHT TWINS CLINICAL HISTORY: growt, position, AUDRA TECHNIQUE: Ultrasound performed using standard protocol. COMPARISON: US US OB AUDRA WEIGHT from 04/06/2021 FINDINGS: Ob ultrasound was performed utilizing 3rd trimester protocol. There is a twin gestation. Fetus a lies on the left with spine anterior in cephalic presentation. biometry is consi stent with gestational age of 35 weeks 2 days and EDC of 06/05/2021. Estimated weight is 2685 grams which is at the 36th percentile for predicted gestational age. Fetus B lies on the right with spine anterior in cephalic presentation. biometry is consistent with gestational age of 35 weeks 4 days and EDC of 06/03/2021. Estimated weight is 2782 grams which is at the 46th percentile for predicted gestational age. Placenta is posterior with no placenta previa. There is visually a normal quantity of amniotic fluid and the AUDRA is 14. heart rate of fetus a is 135 BPM. heart rate of fetus B is also 135 BPM. IMPRESSION: DATA REPOSITORY:
--- NOTE | 2021-05-03 17:44 | W.PM.OBHPL1 ---
Date of service: 05/03/21 Time of Service: 17:45 Assessment and Plan Assessment and plan (1) Twin gestation in third trimester: Status: Acute Assessment and plan: Patient is at 36 weeks today with preeclampsia without severe features based on blood pressure and urine protein creatinine ratio is significantly elevated at 1.3. She also has lower extremity edema without changes in her reflux. In light of these findings, it would be beneficial to have a labor induction. She discussed cervical ripening, followed by Pitocin mentation. Patient's desire is for vaginal . We discussed at length vaginal versus section. She understands the risks, benefits, and alternatives. She also understands that delivery will be in the operating room for the possibility of need for emergent section. Anesthesia was notified of the patient's presence on the floor. Ultrasound was also called for formal ultrasound for position, fluid but growth. To this point growth has been concordant. (2) Anemia affecting : Status: Acute Assessment and plan: Patient has a hemoglobin of 8.7. In light of this, we will be aggressive in management of post bleeding. She does understand that with a low hemoglobin, she is at increased risk for need for transfusion. (3) Gestational diabetes: Status: Acute Assessment and plan: Patient has been on surveillance. She has been monitoring blood glucose intermittently which all have been in the target range of fastings less than 95 and 2-hour postprandials less than 135 exception (4) Hypothyroid: Status: Acute (5) Pre-eclampsia affecting , antepartum: Status: Acute Assessment and plan: Patient has elevated blood pressures with proteinuria. In light of this, the recommendation would be for labor induction. She will have cervical ripening followed by Pitocin augmentation. Anesthesia is aware of patient's presence. Pediatrics will be aware of patient's presence. Will have ultrasound for size, position, and amniotic fluid index. I would anticipate she will have a vaginal delivery. OB-HPI Labor/Delivery History of Present Illness Reason for Visit: Pre MARCIAL Chief Complaint: Scheduled Induction of Labor Indication for Induction: Gestational Diabetes and PreEclampsia; Signs/Symptoms Gestational HTN , Associated Signs and Symptoms of GestationalHTN: Elevated blood pressure, proteinuria. MESERET Calculator Estimated Delivery Date Method Current WG Current Estimate 05/31/21 Ultrasound #1 36w 0d Other Estimates 06/06/21 LMP (Certain) 35w 1d # 2 History of Present Expected Delivery Route/Plan Twins - MD linares FOB - Jhon Hernandez (previous child who he doesn't see) Specific Issues/Plan 1. Di Di Twins Normal growth, vertex/vertex at 28 weeks. U/S at 32 weeks Vtx/Transverse. Concordant growth. Desires vaginal delivery -Weekly NSTs @34wks -Induction at 38wks 2. Depression - takes citalopram 40 mg PO daily, considering decreasing the dose, does not see a therapist. 3. Elevated BMI - early GTT and ASA recommended daily 81/mg/162 mg alternating after 12 weeks. 4. Early Glucola @ 9 wks [id number], 3 hr GTT 96, 190, 134, 120- 04/14/21 episodic CBGs nl 5. Hypothyroid - 1st trimester 120 mcg, 11/03 levothryoxine to 150 mcg qd, 04/06 TSH 1.63 6. Nausea and vomiting - ondansetron escribed. 7. BV+ at initial visit, Flagyl 500 mg PO BID Rx'ed 8. Work our restrictions letter given+24hrs/week - 04/06 H/H 03/17. Supplemental iron recommended Patient was seen on the center today for nonstress testing with mildly elevated blood pressures. She also has significant lower extremity edema. She denies headache, visual changes, epigastric pain. Laboratory studies were done for this reason which confirmed a hemoglobin that was low at 8.7, the remainder of her CBC is normal. CMP is normal. She did have a significantly elevated urine protein creatinine ratio at 1.3. She also has a large amount of protein in her urine. She is not leaking fluid or having any vaginal discharge per se. And in light of her blood pressure, along with her urine, decision was made for delivery at this point due to preeclampsia without severe features in twin gestation at 36 weeks. She was called to be present to the center for further evaluation. Review of Systems All systems reviewed & are unremarkable except as noted in HPI and below Constitutional Constitutional: Denies fatigue, Denies lethargy, Denies malaise and Denies poor appetite Eyes Eyes: Reports system reviewed and no additional complaints, except as documented, Denies blurry vision, Denies change in vision, Denies diplopia, Denies loss of vision and Denies other visual disturbances Cardiovascular Cardiovascular: Denies chest pain, Denies irregular heart rhythm and Denies dyspnea Respiratory Respiratory: Denies chest congestion, Denies cough and Denies dyspnea Gastrointestinal Gastrointestinal: Denies bloating, Denies constipation, Reports early satiety and Reports heartburn Genitourinary Genitourinary: Reports as per HPI and Denies pelvic pain Comments: Pelvic pressure, irregular contractions Musculoskeletal Musculoskeletal: Reports system reviewed and no additional complaints, except as documented Neurologic Neurologic: Denies loss of vision Psychiatric Psychiatric: Reports system reviewed and no additional complaints, except as documented Endocrine Endocrine: Denies fatigue [facility] Active Problem List Dental infection (Acute) Twin gestation in third trimester (Acute) Anemia affecting (Acute) Hip pain (Acute) Twin gestation in second trimester (Acute) Gestational diabetes (Acute) Elevated glucose (Acute) Vaginal discharge during in first trimester (Acute) (Acute) Depression (Chronic) Twin gestation in first trimester (Acute) First trimester bleeding (Acute) Bleeding in early (Acute) Hypothyroid (Acute 04/21/14) Medical History Contraception Surgical History Appendectomy Age 11yrs Family History Mother Alzheimers disease Father Diabetes Hyperlipidemia Thyroid disorder hypothyroid Grandmother Lung cancer maternal Diabetes Grandmother Breast cancer paternal Diabetes Sister Thyroid disorder hyperthyroid, resolved after Social History Smoking/Tobacco Use Status: Current-Occasional Tobacco Type: cigarettes Tobacco: How many years used: 12 Quit status: has quit before Smoking risk assessment performed?: Yes Alcohol Intake: never Drug use: Never Substance use type: does not use Do you feel safe at home: Yes Do you feel safe in your relationship?: Yes History History 1 Para 0 Hx # Term Pregnancies 0 Multiple births Hx # Pregnancies Ectopic pregnancies AB induced Hx Number of Living Children AB spontaneous Meds Allergies and Home Medications Allergies Allergy/AdvReac Type Severity Reaction Status Date / Time No Known Drug Allergies Allergy Verified 04/25/21 09:39 Home Medications Medication Instructions Recorded Confirmed Type ascorbate calcium (vitamin C) 500 500 mg PO DAILY 01/16/20 05/03/21 History mg tablet ferrous fumarate 325 mg (106 mg 325 mg PO DAILY tab 06/04/20 05/03/21 History iron) tablet PNV 153-FA 400 mcg-om3 35 mg-dha 1 tab PO DAILY 08/19/20 05/03/21 History 25 mg-epa 5 mg-fish oil chew tablet ondansetron HCl 4 mg tablet 4 mg PO Q8H #30 tab 11/03/20 05/03/21 Rx metronidazole 500 mg tablet 500 mg PO BID #14 tab 11/04/20 05/03/21 Rx blood sugar diagnostic #100 ea 11/10/20 05/03/21 Rx blood-glucose meter #1 ea 11/10/20 05/03/21 Rx lancets 28 gauge #100 ea 11/10/20 05/03/21 Rx metoclopramide HCl 10 mg tablet 10 mg PO Q6H PRN #20 tab 12/17/20 05/03/21 Rx cholecalciferol (vitamin D3) 10 10 mcg PO DAILY #90 cap 02/28/21 05/03/21 Rx mcg (400 unit) capsule levothyroxine 150 mcg tablet 150 mcg PO DAILY #90 tab 03/08/21 05/03/21 Rx breast pump #1 ea 03/24/21 05/03/21 Rx citalopram 20 mg tablet 20 mg PO DAILY #60 tab 03/24/21 05/03/21 Rx amoxicillin 875 mg-potassium 1 tab PO BID #14 tab 04/27/21 05/03/21 Rx clavulanate 125 mg tablet Exam Physical Exam Vital signs: Blood pressures are 140s over 80s. Pulse 70. Vital Signs Reviewed: Yes Detailed Labor and Delivery Exam Dilation: 1 Effacement (%): 50 station: -2 Cervix position: mid Consistency: soft Reed Score: Cervical Points Exam 0 1 2 3 Dilation Closed 1-2cm 3-4 cm 5-6cm Effacement 0-30% 40-50% 60-70% 80% Consistency Firm Medium Soft Station -3 -2 -1,0 +1,+2 Position Posterior Mid Anterior REED Score(Cervical Ripeness Score): 6 Amniotic Membrane Status: Intact Contraction Frequency(min): Irregular Contraction Duration(sec): 60 seconds Contraction Intensity: Mild Fetus A Heart Rate Baseline: 145 Monitor Accelerations: 15 X 15 Monitor Decelerations: None Variability: Moderate (6-25 BPM) Presentation: Cephalic Categories: Category I Est. Weight: 6 lb Fetus B Heart Rate Baseline: 140 Monitor Accelerations: 15 X 15 Monitor Decelerations: None Variability: Moderate (6-25 BPM) Presentation: Unknown FA Categories: Category I Est. Weight: 6 lb HEENT Exam HEENT Exam: Normal Neck Exam Neck Exam: Normal Detailed Neck Exam Neck exam general surgery: Present supple; Absent thyromegaly Respiratory Exam Respiratory Exam: Normal Cardiovascular Exam Cardiovascular Exam: Normal Exam Exam: Normal Detailed Extremities Exam Extremities: Present edema (2+, bilateral) and full ROM; Absent calf tenderness Skin Exam Skin Exam: Normal Psychiatric Exam Psychiatric Exam: Normal Results Results Group Beta Strep: Negative Blood Type: O+ Rubella Status: Immune Varicella Immunity: Immune Risk Assessment Risk for Shoulder Dystocia Historical/Initial OB: POSITIVE FOR: Pre- BMI>30; NEGATIVE FOR: Pelvic Abnormality, Previous Shoulder Dystocia or Previous Macrosomia Risk for Pre-Eclampsia Yes, if one or more: POSTIVE FOR: Multiple Gestation; NEGATIVE FOR: Hx Pre-E/Gest HTN, Chronic HTN, Pre-gestational DM, Renal Disease, Systemic Lupus or APA Syndrome Yes, if 2 or more: POSITIVE FOR: Nulliparity and BMI>30; NEGATIVE FOR: Age>= 35 yrs, >10yr btwn pregnancies, ethinicty, Mother/Sister w/ Pre-E or Previous IUGR Risk for Post- Hemorrhage Initial: POSITIVE FOR: Multiple Gestation; NEGATIVE FOR: Previous PPH, Known Clotting Deficiency, Grand Multiparity or Anticoagulation At Risk?: Yes Interventions: Active management of third stage Counseled re: Active Management: Yes Date/Initials: EDUIN 05/03/2021 Risks Reviewed Risks Reviewed Upon Admission: Yes
[2021-05-03 17:54] VITALS: BP 143/85; PULSE 101; RESP 16; TEMP 36.8
[2021-05-03 18:05] LABS: Source Nasal/Nares
[2021-05-03 18:07] LABS: HCT 29.2 % (36.0-46.0); HGB 8.9 g/dL (11.2-15.7); MCHC 30.5 % (32.0-36.0); MPV 9.1 fL (8.0-11.0); Platelet Count 195 10^3/uL (130-400); RBC 3.56 10^6/uL (3.93-5.22); RDW 15.6 % (11.7-14.6); RDW-SD 46.5 fL; WBC 10.16 10^3/uL (4.4-10.8)
[2021-05-03 18:20] LABS: ALT 27 U/L (14-59); AST 27 U/L (15-37); Albumin 2.3 g/dL (3.4-5.0); Alkaline Phosphatase 164 U/L (46-116); Anion Gap 11.1 mmol/L (3-11); BUN 12 mg/dL (7-18); Bilirubin, Total 0.3 mg/dL (0.2-1.0); CO2 21.9 mmol/L (21.0-32.0); CREATININE 0.8 mg/dL (0.55-1.02); Calcium 8.5 mg/dL (8.5-10.1); Chloride 105 mmol/L (98-107); Glucose 91 mg/dL (74-106); Potassium 4.2 mmol/L (3.5-5.1); Sodium 138 mmol/L (136-145); Total Protein 6.6 g/dL (6.4-8.2)
--- NOTE | 2021-05-03 18:31 | NUR.NOTE ---
Pt down to radiology for ultrasound Nursing Note:
--- NOTE | 2021-05-03 18:36 | W.ANESPRE ---
General Info Date of Service Date Performed: 05/03/21 Height: 5 ft 8.9 in Weight: 108.862 kg Body Mass Index (BMI): 35.5 Meds Allergies and Home Medications Allergies Allergy/AdvReac Type Severity Reaction Status Date / Time No Known Drug Allergies Allergy Verified 04/25/21 09:39 Home Medication Medication Instructions Recorded ascorbate calcium (vitamin C) 500 500 mg PO DAILY 01/16/20 mg tablet ferrous fumarate 325 mg (106 mg 325 mg PO DAILY tab 06/04/20 iron) tablet PNV 153-FA 400 mcg-om3 35 mg-dha 1 tab PO DAILY 08/19/20 25 mg-epa 5 mg-fish oil chew tablet ondansetron HCl 4 mg tablet 4 mg PO Q8H #30 tab 11/03/20 metronidazole 500 mg tablet 500 mg PO BID #14 tab 11/04/20 blood sugar diagnostic #100 ea 11/10/20 blood-glucose meter #1 ea 11/10/20 lancets 28 gauge #100 ea 11/10/20 metoclopramide HCl 10 mg tablet 10 mg PO Q6H PRN #20 tab 12/17/20 cholecalciferol (vitamin D3) 10 10 mcg PO DAILY #90 cap 02/28/21 mcg (400 unit) capsule levothyroxine 150 mcg tablet 150 mcg PO DAILY #90 tab 03/08/21 breast pump #1 ea 03/24/21 citalopram 20 mg tablet 20 mg PO DAILY #60 tab 03/24/21 amoxicillin 875 mg-potassium 1 tab PO BID #14 tab 04/27/21 clavulanate 125 mg tablet Current Visit Medications: Current Medications Generic Name Dose Route Start Last Admin Trade Name Freq PRN Reason Stop Dose Admin Ringer's Solution 1,000 mls @ 200 mls/hr 05/03/21 17:45 IV INFUSION ALYSA Sodium Chloride 500 mls @ 0 mls/hr 05/03/21 17:32 Saline 500ml Bag IV PRN PRN As Directed IV Miscellaneous Supplies 1 each 05/03/21 17:45 Iv Access IV DIRECTED ALYSA Misoprostol 25 mcg 05/03/21 18:00 Misoprostol 25 Mcg Tab VG Q4H ALYSA Sodium Chloride 0 ml 05/03/21 17:32 Normal Saline Flush 10 Ml Syr IVP PRN PRN Terbutaline Sulfate 0.25 mg 05/03/21 17:32 Terbutaline 1 Mg/Ml Vial SC PRN PRN Zolpidem Tartrate 10 mg 05/03/21 21:00 Zolpidem 5 Mg Tab PO 05/04/21 06:00 2100 [facility] PFSH Active Problems Active Problems: Problem Status Onset Code Pre-eclampsia affecting , antepartum O14.90 Dental infection K04.7 Twin gestation in third trimester O30.003 Anemia affecting O99.019 Hip pain M25.559 Twin gestation in second trimester O30.002 Gestational diabetes O24.419 Elevated glucose R73.09 Vaginal discharge during in first trimester O26.891, N89.8 Z34.90 Depression F32.9 Twin gestation in first trimester O30.001 First trimester bleeding O20.9 Bleeding in early O20.9 Hypothyroid 04/21/14 E03.9 Medical History Active Problem List Dental infection (Acute) Twin gestation in third trimester (Acute) Anemia affecting (Acute) Hip pain (Acute) Twin gestation in second trimester (Acute) Gestational diabetes (Acute) Elevated glucose (Acute) Vaginal discharge during in first trimester (Acute) (Acute) Depression (Chronic) Twin gestation in first trimester (Acute) First trimester bleeding (Acute) Bleeding in early (Acute) Hypothyroid (Acute 04/21/14) Medical History Contraception Surgical History Surgical History Appendectomy Age 11yrs Tobacco Smoking/Tobacco Use Status: Current-Occasional Tobacco Type: cigarettes Tobacco: How many years used: 12 Passive smoking exposure: No Quit Status: has quit before Alcohol Alcohol Intake: never Substance Use Substance use: Never Substance use type: does not use Prental History History 1 Para 0 Hx # Term Pregnancies 0 Multiple births Hx # Pregnancies Ectopic pregnancies AB induced Hx Number of Living Children AB spontaneous Vital Signs and Lab Results Vital Signs Most Recent Vital Signs in EMR: Most Recent Vital Signs Temp Pulse Resp BP 36.8 C 101 H 16 143/85 H 05/03/21 17:54 05/03/21 17:54 05/03/21 17:54 05/03/21 17:54 Lab Results Result Diagrams: 05/03/21 17:58 05/03/21 17:58 Blood Type / Crossmatch: No Data to Display Complete Blood Count: White Blood Count 10.16 10^3/uL (4.4-10.8) 05/03/21 17:58 05/03/21 Red Blood Count 3.56 10^6/uL (3.93-5.22) L 05/03/21 17:58 05/03/21 Hemoglobin 8.9 g/dL (11.2-15.7) L 05/03/21 17:58 05/03/21 Hematocrit 29.2 % (36.0-46.0) L 05/03/21 17:58 05/03/21 Platelet Count 195 10^3/uL (130-400) 05/03/21 17:58 05/03/21 Complete Metabolic Panel: Sodium Level 138 mmol/L (136-145) 05/03/21 17:58 05/03/21 Potassium Level 4.2 mmol/L (3.5-5.1) 05/03/21 17:58 05/03/21 Chloride Level 105 mmol/L (98-107) 05/03/21 17:58 05/03/21 Carbon Dioxide Level 21.9 mmol/L (21.0-32.0) 05/03/21 17:58 05/03/21 Blood Urea Nitrogen 12 mg/dL (7-18) 05/03/21 17:58 05/03/21 Creatinine 0.8 mg/dL (0.55-1.02) 05/03/21 17:58 05/03/21 Estimated GFR/1.73 m2 >= 60.00 (mL/min/1.73m2) 05/03/21 17:58 05/03/21 Calcium Level 8.5 mg/dL (8.5-10.1) 05/03/21 17:58 05/03/21 Albumin 2.3 g/dL (3.4-5.0) L 05/03/21 17:58 05/03/21 Glucose Level 91 mg/dL (74-106) 05/03/21 17:58 05/03/21 Liver Function Panel: Alanine Aminotransferase (ALT/SGPT) 27 U/L (14-59) 05/03/21 17:58 05/03/21 Aspartate Amino Transf (AST/SGOT) 27 U/L (15-37) 05/03/21 17:58 05/03/21 Coagulation Panel: No Data to Display Cardiac Panel: No Data to Display Arterial Blood Gas: No Data to Display Venous Blood Gas: No Data to Display Pancreas Panel: No Data to Display Thyroid Panel: Thyroid Stimulating Hormone (TSH) 1.63 uIU/mL (0.36-3.74) 04/06/21 09:43 04/06/21 Infectious Disease: Coronavirus (COVID-19)(PCR) Negative (Negative) 04/27/21 02:19 04/27/21 Coronavirus 2019 Source Nasal/Nares 05/03/21 17:50 05/03/21 Blood Cultures: No Data to Display Toxicology Panel: No Data to Display Panel: No Data to Display Imaging and Studies Imaging and Studies Pulmonary Function Summary: 2013: normal PFTs Anesthesia Assessment and Plan Anesthesia History Personal History: No History of Anesthesia Complications Family History: No Family History of Anesthesia Complications Exercise Tolerance Exercise Tolerance: Metabolic Equivalents>4 Cardiac & Pulmonary Exam Cardiac Exam: Normal S1/S2 Heart Sounds Pulmonary Exam: Clear Bilateral Breath Sounds Implantable Cardiac Device Does patient have a Pacemaker or an ICD?: No Airway Exam Known Difficult Airway: No Mallampati Class: 2 Mouth Opening: Narrow (< 3cm) Thyromental Distance: Greater than 3 cm Neck Range of Motion: Full ROM Neck Circumference: Thick Teeth Condition: Normal Dentition ASA Classification ASA Score: ASA 2 Emergency Case?: No NPO Status NPO Status: Unable to Assess Status Status: Other () Anesthesia Plan Resuscitation Status: Full Code Anesthesia Technique: General Anesthesia Airway Planned: Endotracheal Tube Monitors Used: Standard Monitors Preoperative Comments:: 31 yo female 36 week prim with Di-Di twins for IOL due to preeclampsia. Was asked by Dr. Chong to discuss anesthesia plan/s since she will be delivering in the OR due to twins. She does not plan on an epidural, and would like to delivery vaginally. Sig PMHx: occ smoker, hypothyroid (stable on replacement), GD, preeclampsia, anemia. We discussed epidural and spinal analgesia/anesthesia and general anesthesia. Discussed that we want to continue with her plan of vaginal delivery without epidural, but that an epidural would be available if she requested one. We discussed that a section can happen via an epidural, spinal, or general. If we converted emergently to an operative delivery and no epidural was in place that a general anesthetic would be required. We also discussed the potential need for additional IV access/arterial line/etc. Plan: vaginal delivery without anesthesia intervention, unless pt requests epidural/intrathecal, or the need for operative delivery.
[2021-05-03 18:54] VITALS: BMI 35.5
[2021-05-03 19:22] LABS: COVID-19 PCR Negative (Negative)
[2021-05-03] MEDS: miSOPROStol 25 MCG TAB VG (19:39)
[2021-05-03 19:42] VITALS: BP 140/81; PULSE 86; RESP 16; TEMP 36.8
--- NOTE | 2021-05-03 19:44 | W.PM.OBNL1 ---
Date of service: 05/03/21 Time of Service: 19:44 Informed Consent Informed Consent: Induction of Labor Pelvic Exam Dilation: 1 Effacement (%): 50 station: -2 Cervix Position: mid Consistency: soft BISHOPS Score(Cervical Ripeness Score): 6 Comments: 25 mcg centimeters proximal placed intravaginally Contractions Contraction Frequency(min): 8 Contraction Duration(sec): 30 Intensity: Mild/Moderate Fetus A Monitor: External (US) Heart Rate Baseline: 135 Presentation: Vertex Variability: Moderate (6-25 BPM) Categories: Category I FHR Rhythm: Regular Accelerations: 15 X 15 Decelerations: None Fetus B Categories: 1 Accelerations: Present Decelerations: None Variability: Moderate (6-25 BPM) Presentation: Cephalic FA Categories: Category I Amniotic Membrane Status-Baby B: Intact Assessment and Plan Assessment and plan (1) Twin gestation in third trimester: Status: Acute Assessment and plan: Patient is at 36 weeks with twin. She also has mild preeclampsia based on blood pressure and proteinuria. Babies are vertex vertex, with concordant growth, normal amniotic fluid index. The plan will be for cervical ripening, followed by Pitocin augmentation of labor if indicated. Anesthesia aware. Pediatrics aware. Patient is desirous of vaginal delivery. Risk benefits and alternatives have been discussed with the patient. Plan will be for delivery in the OR. (2) Pre-eclampsia affecting , antepartum: Status: Acute (3) Anemia affecting : Status: Acute Assessment and plan: Aggressive management stage, judicious use of oxytotics (4) Gestational diabetes: Status: Acute Assessment and plan: Will perform Accu-Cheks every 4 hours with patient Objective Abnormal lab results 05/03/21 05/03/21 Range/Units 17:58 17:58 RBC 3.56 L (3.93-5.22) 10^6/uL Hgb 8.9 L (11.2-15.7) g/dL Hct 29.2 L (36.0-46.0) % MCH 25.0 L (27.0-33.0) pg MCHC 30.5 L (32.0-36.0) % RDW 15.6 H (11.7-14.6) % Anion Gap 11.1 H (3-11) mmol/L Alkaline Phosphatase 164 H (46-116) U/L Albumin 2.3 L (3.4-5.0) g/dL Temp Pulse Resp BP 98.2 F 86 16 140/81 05/03/21 19:42 05/03/21 19:42 05/03/21 17:54 05/03/21 19:42 Laboratory Results WBC 10.16 10^3/uL (4.4-10.8) 05/03/21 17:58 RBC 3.56 10^6/uL (3.93-5.22) L 05/03/21 17:58 Hgb 8.9 g/dL (11.2-15.7) L 05/03/21 17:58 Hct 29.2 % (36.0-46.0) L 05/03/21 17:58 MCV 82.0 fL (80-95) 05/03/21 17:58 MCH 25.0 pg (27.0-33.0) L 05/03/21 17:58 MCHC 30.5 % (32.0-36.0) L 05/03/21 17:58 RDW 15.6 % (11.7-14.6) H 05/03/21 17:58 Plt Count 195 10^3/uL (130-400) 05/03/21 17:58 MPV 9.1 fL (8.0-11.0) 05/03/21 17:58 Sodium 138 mmol/L (136-145) 05/03/21 17:58 Potassium 4.2 mmol/L (3.5-5.1) 05/03/21 17:58 Chloride 105 mmol/L (98-107) 05/03/21 17:58 Carbon Dioxide 21.9 mmol/L (21.0-32.0) 05/03/21 17:58 Anion Gap 11.1 mmol/L (3-11) H 05/03/21 17:58 BUN 12 mg/dL (7-18) 05/03/21 17:58 Creatinine 0.8 mg/dL (0.55-1.02) 05/03/21 17:58 Estimated GFR/1.73 m2 >= 60.00 (mL/min/1.73m2) 05/03/21 17:58 Glucose 91 mg/dL (74-106) 05/03/21 17:58 Calcium 8.5 mg/dL (8.5-10.1) 05/03/21 17:58 Total Bilirubin 0.3 mg/dL (0.2-1.0) 05/03/21 17:58 AST 27 U/L (15-37) 05/03/21 17:58 ALT 27 U/L (14-59) 05/03/21 17:58 Alkaline Phosphatase 164 U/L (46-116) H 05/03/21 17:58 Total Protein 6.6 g/dL (6.4-8.2) 05/03/21 17:58 Albumin 2.3 g/dL (3.4-5.0) L 05/03/21 17:58 COVID-19 Source Nasal/Nares 05/03/21 17:50 SARS-CoV-2 (PCR) Negative (Negative) 05/03/21 17:50 Patient ABO/Rh O Positive 05/03/21 17:58 Antibody Screen NEGATIVE 05/03/21 17:58 Subjective Patient Reports: No new Complaints Interval history since last seen: Patient was seen after returning from ultrasound. She is feeling well. These are moving and active. Ultrasound results reviewed. AUDRA is 14, babies are vertex vertex, a weighing 2680 gm, baby weighing 2782 gm. We again discussed labor induction with cervical ripening followed by Pitocin augmentation of labor. Patient has been seen by anesthesia. Pediatrics aware of labor induction at 36 weeks with twins. Overall, she is doing well, all questions were answered. Results Hemoglobin/Hematocrit: Hgb 8.9 g/dL (11.2-15.7) L 05/03/21 17:58 Hct 29.2 % (36.0-46.0) L 05/03/21 17:58 Abnormal Lab Findings: Abnormal Labs 05/03/21 05/03/21 17:58 17:58 RBC 3.56 L Hgb 8.9 L Hct 29.2 L MCH 25.0 L MCHC 30.5 L RDW 15.6 H Anion Gap 11.1 H Alkaline Phosphatase 164 H Albumin 2.3 L
[2021-05-03] MEDS: Amoxicillin 875/Clav. 125 TAB PO (20:01)
--- NOTE | 2021-05-03 20:31 | DI.VRAD_ITS ---
PROCEDURE INFORMATION: Exam: US First Trimester, Transabdominal. Additional Gestation. Exam date and time: 05/03/2021 5:22 PM Age: 31 years old Clinical indication: Lmp or gestational age (in weeks): 36; Labor and delivery abnormalities; Other: Possible induction, maternal HTN; TECHNIQUE: Imaging protocol: Real-time transabdominal obstetrical ultrasound of the maternal pelvis and a first trimester with image documentation. Additional gestation was evaluated. Total images: 65 COMPARISON: US OB AUDRA WEIGHT 04/06/2021 10:05 AM FINDINGS: Twin living intrauterine gestations again visualized. Posterior fundal placenta without evidence of abruption or previa. The cervix is not well visualized due to position. Amniotic fluid volume is subjectively normal for gestational age, AUDRA 14.4 cm. Baby A Cephalic presentation. spine anterior. Positioned on the maternal left. heart motions are confirmed at 135 beats per minute. BPD 84 mm, 33 weeks 5 days, limited visualization Head circumference measures 320 mm, 36 weeks, limited visualization Abdominal circumference measures 316 mm, 35 weeks 4 days Femur length measures 70 mm, 35 weeks 6 days Estimated weight 2685 g Estimated weight percentile: 36 % Average ultrasound age based on current sonographic measurements is 35 weeks 2 days. Estimated date of delivery is 06/05/2021. Baby B: Cephalic presentation. spine anterior, and positioned to the maternal right. heart motions are confirmed at 135 beats per minute. BPD 84 mm, 33 weeks 6 days, limited visualization Head circumference measures 320 mm, 36 weeks 1 day, limited visualization Abdominal circumference measures 323 mm, 36 weeks 1 day Femur length measures 70 mm, 35 weeks 6 days Estimated weight 2782 g Estimated weight percentile: 46% Average ultrasound age based on current sonographic measurements is 35 weeks 4 days. Estimated date of delivery is 06/03/2021. IMPRESSION: 1. Twin living intrauterine gestations in cephalic presentation, detailed above. No acute complication. 2. Mildly delayed interval growth of both fetuses since prior scan 04/06/2021. 3. Amniotic fluid volume is normal. The cervix was obscured by position. Dictated and Authenticated by: Corwin Alvarez MD. Ordering:ANGELA Hart MD
[2021-05-03 21:32] VITALS: BP 129/66; PULSE 82
[2021-05-03 21:33] VITALS: BP 130/85
[2021-05-03 23:15] VITALS: BP 141/82; PULSE 75; RESP 18; TEMP 36.7
[2021-05-04] VITALS (68 sets, daily range): BP systolic 124–167; BP diastolic 57–87; PULSE 63–112; RESP 18–20; TEMP 36.6–37.2; O2SAT 98–100
[2021-05-04] MEDS: Zolpidem 5 MG TAB 10 MG PO (00:56)
--- NOTE | 2021-05-04 05:38 | W.PM.OBNL1 ---
Date of service: 05/04/21 Time of Service: 05:38 Informed Consent Informed Consent: Induction of Labor Pelvic Exam Dilation: 2 Effacement (%): 70 station: -2 Cervix Position: anterior Consistency: soft Vaginal Exam Presentation: Vertex Contractions Monitor Mode: External Contraction Frequency(min): 3-4 Contraction Duration(sec): 90 Intensity: Moderate Fetus A Presentation: Cephalic Variability: Moderate (6-25 BPM) Categories: Category I Accelerations: Present Decelerations: None Amniotic Membrane Status: Intact Fetus B Accelerations: 15 X 15 Decelerations: None Variability: Moderate (6-25 BPM) FA Categories: Category I Amniotic Membrane Status-Baby B: Intact Assessment and Plan Assessment and plan (1) Pre-eclampsia affecting , antepartum: Status: Acute Assessment and plan: Labor induction at 36 weeks and cervix is more vaginal misoprostol. She will begin Pitocin augmentation of labor this morning. Anticipate vaginal delivery of twin gestation in the OR when appropriate (2) Twin gestation in third trimester: Status: Acute Objective Abnormal lab results 05/03/21 05/03/21 Range/Units 17:58 17:58 RBC 3.56 L (3.93-5.22) 10^6/uL Hgb 8.9 L (11.2-15.7) g/dL Hct 29.2 L (36.0-46.0) % MCH 25.0 L (27.0-33.0) pg MCHC 30.5 L (32.0-36.0) % RDW 15.6 H (11.7-14.6) % Anion Gap 11.1 H (3-11) mmol/L Alkaline Phosphatase 164 H (46-116) U/L Albumin 2.3 L (3.4-5.0) g/dL Temp Pulse Resp BP 98.1 F 91 H 18 134/81 05/03/21 23:15 05/04/21 05:03 05/03/21 23:15 05/04/21 05:03 Laboratory Results WBC 10.16 10^3/uL (4.4-10.8) 05/03/21 17:58 RBC 3.56 10^6/uL (3.93-5.22) L 05/03/21 17:58 Hgb 8.9 g/dL (11.2-15.7) L 05/03/21 17:58 Hct 29.2 % (36.0-46.0) L 05/03/21 17:58 MCV 82.0 fL (80-95) 05/03/21 17:58 MCH 25.0 pg (27.0-33.0) L 05/03/21 17:58 MCHC 30.5 % (32.0-36.0) L 05/03/21 17:58 RDW 15.6 % (11.7-14.6) H 05/03/21 17:58 Plt Count 195 10^3/uL (130-400) 05/03/21 17:58 MPV 9.1 fL (8.0-11.0) 05/03/21 17:58 Sodium 138 mmol/L (136-145) 05/03/21 17:58 Potassium 4.2 mmol/L (3.5-5.1) 05/03/21 17:58 Chloride 105 mmol/L (98-107) 05/03/21 17:58 Carbon Dioxide 21.9 mmol/L (21.0-32.0) 05/03/21 17:58 Anion Gap 11.1 mmol/L (3-11) H 05/03/21 17:58 BUN 12 mg/dL (7-18) 05/03/21 17:58 Creatinine 0.8 mg/dL (0.55-1.02) 05/03/21 17:58 Estimated GFR/1.73 m2 >= 60.00 (mL/min/1.73m2) 05/03/21 17:58 Glucose 91 mg/dL (74-106) 05/03/21 17:58 Calcium 8.5 mg/dL (8.5-10.1) 05/03/21 17:58 Total Bilirubin 0.3 mg/dL (0.2-1.0) 05/03/21 17:58 AST 27 U/L (15-37) 05/03/21 17:58 ALT 27 U/L (14-59) 05/03/21 17:58 Alkaline Phosphatase 164 U/L (46-116) H 05/03/21 17:58 Total Protein 6.6 g/dL (6.4-8.2) 05/03/21 17:58 Albumin 2.3 g/dL (3.4-5.0) L 05/03/21 17:58 COVID-19 Source Nasal/Nares 05/03/21 17:50 SARS-CoV-2 (PCR) Negative (Negative) 05/03/21 17:50 Patient ABO/Rh O Positive 05/03/21 17:58 Antibody Screen NEGATIVE 05/03/21 17:58 Subjective Patient Reports: No new Complaints Interval history since last seen: Crampiness and back discomfort. Occasional contractions. No headache, no vision changes Results Hemoglobin/Hematocrit: Hgb 8.9 g/dL (11.2-15.7) L 05/03/21 17:58 Hct 29.2 % (36.0-46.0) L 05/03/21 17:58 Abnormal Lab Findings: Abnormal Labs 05/03/21 05/03/21 17:58 17:58 RBC 3.56 L Hgb 8.9 L Hct 29.2 L MCH 25.0 L MCHC 30.5 L RDW 15.6 H Anion Gap 11.1 H Alkaline Phosphatase 164 H Albumin 2.3 L
[2021-05-04] MEDS: Citalopram 20 MG TAB PO (08:01)
[2021-05-04] MEDS: Levothyroxine 150 MCG TAB PO (08:02)
[2021-05-04] MEDS: Amoxicillin 875/Clav. 125 TAB PO ×2 (08:03→21:15)
[2021-05-04] MEDS: Oxytocin/Normal Saline 30 UNIT/500 ML BAG 2 UNITS IV (09:11)
[2021-05-04] MEDS: Lactated Ringers 1,000 ML 200 ML IV ×3 (09:12→21:31)
--- NOTE | 2021-05-04 16:12 | W.PM.OBNL1 ---
Date of service: 05/04/21 Time of Service: 16:12 Informed Consent Informed Consent: Induction of Labor Pelvic Exam Dilation: 3 Effacement (%): 80 station: -1 Cervix Position: posterior Consistency: medium Vaginal Exam Presentation: Cephalic Contractions Monitor Mode: External Contraction Frequency(min): q2-3 Intensity: Moderate Fetus A Monitor: Doppler Heart Rate Baseline: 125 Presentation: Vertex Variability: Moderate (6-25 BPM) Categories: Category I FHR Rhythm: Regular Characteristics: Normal Accelerations: 15 X 15 Decelerations: None Amniotic Membrane Status: Ruptured Fetus B Categories: 130 Accelerations: 15 X 15 Decelerations: None Variability: Moderate (6-25 BPM) Amniotic Membrane Status-Baby B: Intact Assessment and Plan Assessment and plan (1) Pre-eclampsia affecting , antepartum: Status: Acute (2) Twin gestation in third trimester: Status: Acute Assessment and plan: Will continue with pitocin and monitoring the babies. Pt has been doing position changes. Currently declines epidural. We had an extensive discussion about her delivery and what to expect, potential risks of emergent CS and General anesthesia. Objective Abnormal lab results 05/03/21 05/03/21 Range/Units 17:58 17:58 RBC 3.56 L (3.93-5.22) 10^6/uL Hgb 8.9 L (11.2-15.7) g/dL Hct 29.2 L (36.0-46.0) % MCH 25.0 L (27.0-33.0) pg MCHC 30.5 L (32.0-36.0) % RDW 15.6 H (11.7-14.6) % Anion Gap 11.1 H (3-11) mmol/L Alkaline Phosphatase 164 H (46-116) U/L Albumin 2.3 L (3.4-5.0) g/dL Temp Pulse Resp BP 98.4 F 63 20 144/81 H 05/04/21 14:19 05/04/21 15:17 05/04/21 13:22 05/04/21 15:17 Laboratory Results WBC 10.16 10^3/uL (4.4-10.8) 05/03/21 17:58 RBC 3.56 10^6/uL (3.93-5.22) L 05/03/21 17:58 Hgb 8.9 g/dL (11.2-15.7) L 05/03/21 17:58 Hct 29.2 % (36.0-46.0) L 05/03/21 17:58 MCV 82.0 fL (80-95) 05/03/21 17:58 MCH 25.0 pg (27.0-33.0) L 05/03/21 17:58 MCHC 30.5 % (32.0-36.0) L 05/03/21 17:58 RDW 15.6 % (11.7-14.6) H 05/03/21 17:58 Plt Count 195 10^3/uL (130-400) 05/03/21 17:58 MPV 9.1 fL (8.0-11.0) 05/03/21 17:58 Sodium 138 mmol/L (136-145) 05/03/21 17:58 Potassium 4.2 mmol/L (3.5-5.1) 05/03/21 17:58 Chloride 105 mmol/L (98-107) 05/03/21 17:58 Carbon Dioxide 21.9 mmol/L (21.0-32.0) 05/03/21 17:58 Anion Gap 11.1 mmol/L (3-11) H 05/03/21 17:58 BUN 12 mg/dL (7-18) 05/03/21 17:58 Creatinine 0.8 mg/dL (0.55-1.02) 05/03/21 17:58 Estimated GFR/1.73 m2 >= 60.00 (mL/min/1.73m2) 05/03/21 17:58 Glucose 91 mg/dL (74-106) 05/03/21 17:58 Calcium 8.5 mg/dL (8.5-10.1) 05/03/21 17:58 Total Bilirubin 0.3 mg/dL (0.2-1.0) 05/03/21 17:58 AST 27 U/L (15-37) 05/03/21 17:58 ALT 27 U/L (14-59) 05/03/21 17:58 Alkaline Phosphatase 164 U/L (46-116) H 05/03/21 17:58 Total Protein 6.6 g/dL (6.4-8.2) 05/03/21 17:58 Albumin 2.3 g/dL (3.4-5.0) L 05/03/21 17:58 COVID-19 Source Nasal/Nares 05/03/21 17:50 SARS-CoV-2 (PCR) Negative (Negative) 05/03/21 17:50 Patient ABO/Rh O Positive 05/03/21 17:58 Antibody Screen NEGATIVE 05/03/21 17:58 Subjective Interval history since last seen: Pt getting more uncomfortable with contractions. AROM @13:00 with clear fluid. Results Hemoglobin/Hematocrit: Hgb 8.9 g/dL (11.2-15.7) L 05/03/21 17:58 Hct 29.2 % (36.0-46.0) L 05/03/21 17:58 Abnormal Lab Findings: Abnormal Labs 05/03/21 05/03/21 17:58 17:58 RBC 3.56 L Hgb 8.9 L Hct 29.2 L MCH 25.0 L MCHC 30.5 L RDW 15.6 H Anion Gap 11.1 H Alkaline Phosphatase 164 H Albumin 2.3 L
[2021-05-04] MEDS: Lactated Ringers 250 ML 999 ML IV (20:30)
--- NOTE | 2021-05-04 21:13 | W.PM.OBNL1 ---
Date of service: 05/04/21 Time of Service: 20:13 Informed Consent Informed Consent: Induction of Labor Pelvic Exam Dilation: 5 Effacement (%): 90 station: 0 Cervix Position: mid Consistency: soft Vaginal Exam Presentation: Cephalic Contractions Contraction Frequency(min): 2-4 Fetus A Monitor: Doppler Heart Rate Baseline: 130 Variability: Moderate (6-25 BPM) Categories: Category I FHR Rhythm: Regular Characteristics: Normal Accelerations: 15 X 15 Decelerations: None Amniotic Membrane Status: Ruptured Fetus B Categories: 125 Accelerations: 15 X 15 Decelerations: None Variability: Moderate (6-25 BPM) Presentation: Cephalic FA Categories: Category I Amniotic Membrane Status-Baby B: Intact Assessment and Plan Assessment and plan (1) Twin gestation in third trimester: Status: Acute Assessment and plan: After discussion with the patient she opts to proceed with an epidural for pain management and to hopefully allow her to get some rest. Anesthesia notified. Objective Temp Pulse Resp BP Pulse Ox 98.5 F 75 20 143/67 H 100 05/04/21 19:40 05/04/21 21:11 05/04/21 13:22 05/04/21 21:11 05/04/21 21:11 Laboratory Results WBC 10.16 10^3/uL (4.4-10.8) 05/03/21 17:58 RBC 3.56 10^6/uL (3.93-5.22) L 05/03/21 17:58 Hgb 8.9 g/dL (11.2-15.7) L 05/03/21 17:58 Hct 29.2 % (36.0-46.0) L 05/03/21 17:58 MCV 82.0 fL (80-95) 05/03/21 17:58 MCH 25.0 pg (27.0-33.0) L 05/03/21 17:58 MCHC 30.5 % (32.0-36.0) L 05/03/21 17:58 RDW 15.6 % (11.7-14.6) H 05/03/21 17:58 Plt Count 195 10^3/uL (130-400) 05/03/21 17:58 MPV 9.1 fL (8.0-11.0) 05/03/21 17:58 Sodium 138 mmol/L (136-145) 05/03/21 17:58 Potassium 4.2 mmol/L (3.5-5.1) 05/03/21 17:58 Chloride 105 mmol/L (98-107) 05/03/21 17:58 Carbon Dioxide 21.9 mmol/L (21.0-32.0) 05/03/21 17:58 Anion Gap 11.1 mmol/L (3-11) H 05/03/21 17:58 BUN 12 mg/dL (7-18) 05/03/21 17:58 Creatinine 0.8 mg/dL (0.55-1.02) 05/03/21 17:58 Estimated GFR/1.73 m2 >= 60.00 (mL/min/1.73m2) 05/03/21 17:58 Glucose 91 mg/dL (74-106) 05/03/21 17:58 Calcium 8.5 mg/dL (8.5-10.1) 05/03/21 17:58 Total Bilirubin 0.3 mg/dL (0.2-1.0) 05/03/21 17:58 AST 27 U/L (15-37) 05/03/21 17:58 ALT 27 U/L (14-59) 05/03/21 17:58 Alkaline Phosphatase 164 U/L (46-116) H 05/03/21 17:58 Total Protein 6.6 g/dL (6.4-8.2) 05/03/21 17:58 Albumin 2.3 g/dL (3.4-5.0) L 05/03/21 17:58 COVID-19 Source Nasal/Nares 05/03/21 17:50 SARS-CoV-2 (PCR) Negative (Negative) 05/03/21 17:50 Patient ABO/Rh O Positive 05/03/21 17:58 Antibody Screen NEGATIVE 05/03/21 17:58 Subjective Interval history since last seen: Pt is getting more uncomfortable and is very tired. Results Hemoglobin/Hematocrit: Hgb 8.9 g/dL (11.2-15.7) L 05/03/21 17:58 Hct 29.2 % (36.0-46.0) L 05/03/21 17:58 Abnormal Lab Findings: Abnormal Labs 05/03/21 05/03/21 17:58 17:58 RBC 3.56 L Hgb 8.9 L Hct 29.2 L MCH 25.0 L MCHC 30.5 L RDW 15.6 H Anion Gap 11.1 H Alkaline Phosphatase 164 H Albumin 2.3 L
--- NOTE | 2021-05-04 21:27 | W.ANESNEU ---
Epidural/Spinal Catheter Date Performed: 05/04/21 Procedure Start: 20:47 Procedure Stop: 21:20 Requesting Provider: Nelly King Procedure Location: Obstetrics Reason Performed: Labor Epidural Standard Monitors Applied: Blood Pressure, SpO2 and See EMR for corresponding vital signs Patient Position: Sitting Sedation Given (Indicate Dose Given): No Sedation given Patient Mental Status: Awake Sterility: Hand Hygiene, Surgical Cap, Surgical Mask, Sterile Gloves, Eye Protection and Chlorhexidine Procedure Location: L2-L3 Interspace Epidural Needle: Tuohy 18 Gauge Needle Length: 3.5 Inch Needle Approach: Midline Epidural Procedure: Skin Prepped, Sterile Drape Placed, 1% Lidocaine to skin and subcutaneous tissue with 25G needle, Tuohy Needle placed, DANISH to Saline Used, Epidural Catheter Placed, Negative Heme, Negative CSF Flow and Tuohy Needle Removed Catheter Placed?: Catheter Placed Test Dose (Indicate Dose Given): 3ml 1.5% Lidocaine with 1:200K Epinephrine Given Loss of Resistance Depth (cm): 8 Catheter depth at skin (cm): 15 Dressing: Tegaderm Applied Epidural Provider Bolus (Indicate Dose Given): Total bolus dose given in 3-5 ml divided doses and Total Ropivacaine 0.1% with Fentanyl 2mcg/ml Given from pump (ml) Dose:: 10 Additives (Indicate Dose Given ): None Infusion Medication: Medication Infusion Began Medication Infusion: Ropivacaine 0.1% with Fentanyl 2mcg/ml Maintenance Infusion Rate (ml/hour): 12 PCEA Bolus Dose (ml): 5 Block Level: T10 Paresthesia: None Ultrasound: Not Used Number of Attempts (See previous attempts in note section): 1 Procedure Tolerated: No Complications Procedure Outcome: Successful Performed By: Tessie Franks Supervised By: Angeline Marinelli
[2021-05-05] VITALS (100 sets, daily range): BP systolic 124–177; BP diastolic 61–88; PULSE 71–113; RESP 16; TEMP 36.8–37.5; O2SAT 98–100
[2021-05-05] MEDS: Lactated Ringers 1,000 ML 75 ML IV (02:31)
--- NOTE | 2021-05-05 07:52 | NUR.NOTE ---
Nursing Note: pt transferred back to room 305 in center. Baby A delivered at 0622.
--- NOTE | 2021-05-05 08:16 | PLAC_PTH ---
PATIENT: Jeanette Moise LOC: OBS U#:[id number] AGE/SX: 31/F ROOM: OBS.305 RE05/03/[address]: Hailey Chong DO : 1990 BED: A DIS: 05/09/2021 SPEC #: [id number] RECD: 05/05/21 11:58 STATUS: YELITZA REQ #: [id number] MICHAEL: 05/05/21 08:[address]: Nelly King DEPT: Surgical Specimen RECD BY: Sandra Stuart ENTERED: 05/05/21 11:59 SP TYPE: PLAC OTHR DR: Tita Fabian DO Tissues: 1 - PLACENTA (3RD TRIMESTER) Procedures: GROSS AND MICRO LEVEL 5 Comments: [id number]
--- NOTE | 2021-05-05 09:03 | OBVDS_ITS ---
Date of service: 05/05/21 Time of Service: 09:03 OB Labor/ Delivery Information Providers Doctor: Nelly King Engineering Document Control Clerk: Trino Dos Santos Nurse: Radha Caraballo Nurse: Lucía Mason Other: Brina Nieto O'Connor Anne MD Labor/Delivery Information Number of Babies in Womb: 2 Group Beta Strep: Negative Rubella Status: Immune Blood Type: O+ Varicella Immunity: Immune Medication in Delivery: oxytocin IV Maternal Complications: Other Shoulder Dystocia: No Stages of Labor Onset of Labor Date: 05/03/21 Complete Dilatation Date: 05/05/21 Complete Dilatation Time: 04:45 ROM Baby A: 05/04/21 ROM Baby A: 12:57 Delivery Date-Baby A: 05/05/21 Delivery Time-Baby A: 06:22 Labor Stage 2 Duration: 1 hours and 37 minutes Placenta Delivery Date-Baby A: 05/05/21 Placenta Delivery Time-Baby A: 08:16 Labor-Stage 3 Duration: 1 hours and 54 minutes Placenta Cultured: No Placenta Status: Delivered Delivery Date-Baby B: 05/05/21 Infant Delivery Time- Baby B: 08:09 Placenta Delivery Date-Baby B: 05/05/21 Placenta Delivery Time-Baby B: 08:16 Placenta Status: Delivered Baby A Gender: Male Gestational Status: Late (34-36.6 wks) Gestational Age in Weeks/Days: 36 Weeks and 2 Days Score-1 Minute Interval(Baby A) Heart Rate-1 minute: 100 BPM or Greater Respiratory Effort- 1 minute: Spontaneous/Strong Cry Muscle Tone-1 minute: Active Movement Reflex Response-1 minute: Prompt Response Color-1 minute: Pallor or Cyanosis Total Score-1 minute: 8 Score-5 Minute Interval(Baby A) Heart Rate- 5 minute: 100 BPM or Greater Respiratory Effort-5 minute: Spontaneous/Strong Cry Muscle Tone-5 minute: Active Movement Reflex Response-5 minute: Prompt Response Color-5 minute: Bluish Hands or Feet Total Score- 5 minute: 9 Score-1 Minute Interval(Baby B) Heart Rate-1 minute: Below 100 BPM Respiratory Effort- 1 minute: No Spontaneous Effort Muscle Tone-1 minute: Limp Reflex Response-1 minute: Minimal Response Color-1 minute: Pallor or Cyanosis Total Score-1 minute: 2 Score-5 Minute Inerval(Baby B) Heart Rate- 5 minute: 100 BPM or Greater Respiratory Effort-5 minute: Slow Respiration/Weak Cry Muscle Tone-5 minute: Minimal Flexion/Extension Reflex Response-5 minute: Minimal Response Color-5 minute: Bluish Hands or Feet Total Score- 5 minute: 6 Shoulder Dystocia Delivery Times-Baby B Infant Delivery Date-Baby B: 05/05/21 Infant Delivery Time- Baby B: 08:09
[2021-05-05] MEDS: Oxytocin/Normal Saline 30 UNIT/500 ML BAG 95 UNITS IV (09:06)
[2021-05-05] MEDS: Hamamelis Leaf/Glycerin 100 EACH BOX PR (11:30)
[2021-05-05] MEDS: Citalopram 20 MG TAB PO (11:31)
[2021-05-05] MEDS: Dibucaine 1% 28 GM TUBE TP (11:31)
[2021-05-05] MEDS: Acetaminophen 325 MG TAB 650 MG PO ×2 (11:31→19:08)
[2021-05-05] MEDS: Ibuprofen 600 MG TAB PO ×2 (11:31→19:09)
[2021-05-05] MEDS: Docusate Sodium 100 MG CAP PO (11:31)
[2021-05-05] MEDS: Levothyroxine 150 MCG TAB PO (11:32)
[2021-05-05] MEDS: Normal Saline Flush 10 ML SYR IVP (15:07)
[2021-05-06 03:36] VITALS: BP 134/89; PULSE 80; RESP 17; TEMP 36.6
[2021-05-06 07:09] LABS: MCH 24.8 pg (27.0-33.0); MCHC 30.8 % (32.0-36.0); MCV 80.6 fL (80-95); Platelet Count 183 10^3/uL (130-400); RBC 2.78 10^6/uL (3.93-5.22); RDW 15.9 % (11.7-14.6); RDW-SD 45.8 fL; WBC 13.88 10^3/uL (4.4-10.8)
[2021-05-06 07:24] LABS: HCT 22.3 % (36.0-46.0); HGB 6.9 g/dL (11.2-15.7)
[2021-05-06] MEDS: Citalopram 20 MG TAB PO (07:29)
[2021-05-06 07:30] VITALS: BP 144/92; PULSE 82; RESP 14; TEMP 37
[2021-05-06] MEDS: Levothyroxine 150 MCG TAB PO (07:30)
[2021-05-06] MEDS: Ibuprofen 600 MG TAB PO ×2 (07:32→19:42)
[2021-05-06] MEDS: Acetaminophen 325 MG TAB 650 MG PO ×2 (07:33→19:42)
--- NOTE | 2021-05-06 12:58 | W.PM.OBPNV1 ---
Date of service: 05/06/21 Time of Service: 12:58 Assessment and Plan Assessment and plan (1) Vaginal delivery: Status: Acute Assessment and plan: x2 after induction of labor at 30 6W2D EGA. Mother is currently pumping and supplemental feeding formula to her infants. We will continue to follow blood pressure and provide breast-feeding support for patient. (2) Anemia affecting : Status: Acute Assessment and plan: Currently patient is not symptomatic. She is able to perform activities of daily living. No plans for transfusion at this time. Subjective Subjective Interval history: PPD 1 of Di/Di twin gestation w/o complications. Pt sustained superficial labial and vaginal lacerations at time of delivery. She has been pumping breastmilk and attempting to have 's latch for . She has been supplementing feedings with pipette fed formula. She reports little sleep last night 2/2 caring for the infants. Patient comments: Tolerating diet and Other (Perine) Exam Physical Exam Vital signs: Temp Pulse Resp BP Pulse Ox 98.6 F 82 14 144/92 H 98 05/06/21 07:30 05/06/21 07:30 05/06/21 07:30 05/06/21 07:30 05/05/21 07:59 Vital Signs Reviewed: Yes Notable Details: Patient was induced for gestational hypertension. Current blood pressure a Constitutional Constitutional: no acute distress Respiratory Exam Respiratory Exam: Normal (Normal respiratory effort) Cardiovascular Exam Cardiovascular Exam: Normal (1+ nonpitting lower extremity edema bilaterally) Abdominal Exam Comments: No focal tenderness. Fundal Exam Fundus: Below Umbilicus Rectal Exam Rectal Exam: Not Done Exam Perineum: Intact and Normal External: Present normal urethra appearance and lacerations (Abrasion of left labia minora hemostatic-tender.) Extremities Exam Extremity Exam: Normal and Edema Back/Spine/Pelvis Exam Back Exam: Not Done Skin Exam Skin Exam: Normal Neurological Exam Neurological Exam: Normal Psychiatric Exam Psychiatric Exam: Normal Results Hemoglobin/Hematocrit: Hgb 6.9 g/dL (11.2-15.7) L* 05/06/21 06:00 Hct 22.3 % (36.0-46.0) L D 05/06/21 06:00 Abnormal Lab Findings: Abnormal Labs 05/03/21 05/03/21 05/06/21 17:58 17:58 06:00 WBC 13.88 H RBC 3.56 L 2.78 L Hgb 8.9 L 6.9 L* Hct 29.2 L 22.3 L D MCH 25.0 L 24.8 L MCHC 30.5 L 30.8 L RDW 15.6 H 15.9 H Anion Gap 11.1 H Alkaline Phosphatase 164 H Albumin 2.3 L
--- NOTE | 2021-05-06 16:13 | OBVDS_ITS ---
Date of service: 05/05/21 Time of Service: 09:17 OB Labor/ Delivery Information Baby A Delivery Delivery Method: Spontaneaous Presentation: Cephalic Cephalic Position: Vertex Vertex Position: Right Occipital Anterior Estimated Blood Loss: 500ml Delivery Outcome: Liveborn Infant Transferred: Remains with Mother Providers Doctor: Nelly King Pyridine Recovery Operator: Trino Dos Santos Nurse: Radha Caraballo Nurse: Lucía Mason Other: Brina Nieto O'Connor Anne MD Labor/Delivery Information Number of Babies in Womb: 2 Group Beta Strep: Negative Rubella Status: Immune Blood Type: O+ Varicella Immunity: Immune Medication in Delivery: oxytocin IV Maternal Complications: Other Shoulder Dystocia: No Stages of Labor Onset of Labor Date: 05/03/21 Complete Dilatation Date: 05/05/21 Complete Dilatation Time: 04:45 ROM Baby A: 05/04/21 ROM Baby A: 12:57 ROM Total Time- Baby A: [id number] Delivery Date-Baby A: 05/05/21 Infant Delivery Time-Baby A: 06:22 Labor Stage 2 Duration: 1 hours and 37 minutes Placenta Delivery Date-Baby A: 05/05/21 Placenta Delivery Time-Baby A: 08:16 Labor-Stage 3 Duration: 1 hours and 54 minutes Placenta Cultured: No Placenta Status: Delivered Infant Delivery Date-Baby B: 05/05/21 Delivery Time- Baby B: 08:09 Placenta Delivery Date-Baby B: 05/05/21 Placenta Delivery Time-Baby B: 08:16 Placenta Status: Delivered ROM Date-Baby B: 05/05/21 ROM Time-Baby B: 07:27 ROM Total Time-Baby B: [id number] Baby A Gender: Male Gestational Status: Late (34-36.6 wks) Gestational Age in Weeks/Days: 36 Weeks and 2 Days weight: 5 lb 9.596 oz Length-Baby A: 19.75 in Head Circumference-Baby A: 13 in Score-1 Minute Interval(Baby A) Heart Rate-1 minute: 100 BPM or Greater Respiratory Effort- 1 minute: Spontaneous/Strong Cry Muscle Tone-1 minute: Active Movement Reflex Response-1 minute: Prompt Response Color-1 minute: Pallor or Cyanosis Total Score-1 minute: 8 Score-5 Minute Interval(Baby A) Heart Rate- 5 minute: 100 BPM or Greater Respiratory Effort-5 minute: Spontaneous/Strong Cry Muscle Tone-5 minute: Active Movement Reflex Response-5 minute: Prompt Response Color-5 minute: Bluish Hands or Feet Total Score- 5 minute: 9 Score-1 Minute Interval(Baby B) Heart Rate-1 minute: Below 100 BPM Respiratory Effort- 1 minute: No Spontaneous Effort Muscle Tone-1 minute: Limp Reflex Response-1 minute: Minimal Response Color-1 minute: Pallor or Cyanosis Total Score-1 minute: 2 Score-5 Minute Inerval(Baby B) Heart Rate- 5 minute: 100 BPM or Greater Respiratory Effort-5 minute: Slow Respiration/Weak Cry Muscle Tone-5 minute: Minimal Flexion/Extension Reflex Response-5 minute: Minimal Response Color-5 minute: Bluish Hands or Feet Total Score- 5 minute: 6 Note: The pt was found to be fully dilated. The appropriate personnel were contacted. The patient became very uncomfortable so the pitocin was turned down and she was moved down to the OR. When everyone had arrived she pushed <30mins to deliver the infant's head in MILI position followed quickly by the shoulders and the rest of the body. The baby was placed on mom's abdomen. After >1min the cord was clamped x2 and cut. The ultrasound was used to determine baby B's position and status. The FHR was normal and he was in cephalic position but still high in the pelvic and with a hand in front of his head. The patient was not feeling contractions but was very uncomfortable with internal exam so the epidural was redosed. The pitocin was increased to achieve adequate contractions again. Baby B continued to have a Cat 1 FHT. Cord blood was collected for Baby A. After about 1hr the head was further into the pelvis so fundal pressure was applied and Baby B underwent AROM. The head settled into the pelvis and the hand moved away. The decision was made to move back to the patient's room. As she was moving she began to feel more pressure and want to p ush. Baby B continued to have a Cat 1 FHT. After arrival in the room and set up she pushed for ~15min to deliver the infant's head in MICHAEL position with a nuchal cord that reduced around the body. The shoulders delivered with the next push. The baby was placed on mom's abdomen. There was some respiratory effort and tone. After 1min the cord was clamped x2 and cut. At that time the baby was noted to be floppy and was taken to the warmer for resuscitation. Peds arrived quickly. The placentas delivered with gentle cord traction and fundal massage and appeared conjoined and intact. A small first degree laceration was repaired with 3-0 vicryl in a figure of eight stitch. She was having moderate flow so she was given 800mcg of misoprostol. Then some medium clots were expressed and a few more were found in the lower uterine segment. The pitocin was increased to 250ml/hr. After this the fundus was firm with good hemostasis. Baby was stable and returned to be with mom. Baby B Delivery Baby B Delivery Infant Gender-Baby B: Male Weight-Baby B: 5 lb 14.7 oz Gestational Status: Late (34-36.6 wks) Delivery Method: Spontaneaous Presentation: Cephalic Cephalic Position: Vertex Vertex Position: Right Occipital Anterior Membrane Rupture: Artificial Delivery Outcome: Liveborn Complications: Initial resuscitation but baby back with my by the time the repair was done. Infant Disposition: Remains with Mother Interventions Repair of Laceration Type: Perineal , Laceration Extension: First Degree . La ceration Repair Note: Repaired with 1 figure of eight suture of 3-0 vicryl Shoulder Dystocia Baby B Shoulder Dystocia Baby B: No Delivery Times-Baby B Infant Delivery Date-Baby B: 05/05/21 Delivery Time- Baby B: 08:09 Head to Body Delivery Interval: 0 Hemorrrhage Note Total Blood Loss for PPH Event Quantitative Blood Loss: 500
[2021-05-06 19:52] VITALS: BP 129/82; PULSE 75; RESP 18; TEMP 36.6
[2021-05-07] MEDS: Acetaminophen 325 MG TAB 650 MG PO ×3 (04:00→19:24)
[2021-05-07] MEDS: Ibuprofen 600 MG TAB PO ×3 (07:06→19:24)
[2021-05-07] MEDS: Levothyroxine 150 MCG TAB PO (07:53)
[2021-05-07] MEDS: Citalopram 20 MG TAB PO (07:54)
[2021-05-07 08:00] VITALS: BP 131/77; PULSE 69; RESP 16; TEMP 36.5; O2SAT 99
[2021-05-07 16:20] VITALS: BP 148/89; PULSE 84; RESP 16; TEMP 36.7; O2SAT 99
[2021-05-07 19:24] VITALS: TEMP 36.7
[2021-05-07 19:50] VITALS: BP 128/80; PULSE 83; RESP 18; TEMP 37
[2021-05-08 02:25] VITALS: BP 143/74; PULSE 88; RESP 18
[2021-05-08] MEDS: Levothyroxine 150 MCG TAB PO (05:47)
[2021-05-08 07:45] VITALS: BP 135/86; PULSE 75; RESP 16; TEMP 36.5; O2SAT 99
[2021-05-08] MEDS: Acetaminophen 325 MG TAB 650 MG PO ×2 (07:54→16:45)
[2021-05-08] MEDS: Citalopram 20 MG TAB PO (07:54)
[2021-05-08] MEDS: Ibuprofen 600 MG TAB PO ×2 (07:56→16:44)
[2021-05-08] MEDS: Dibucaine 1% 28 GM TUBE TP (11:42)
[2021-05-08 16:40] VITALS: BP 146/85; PULSE 81; RESP 16; TEMP 36.5
--- NOTE | 2021-05-08 18:05 | W.PM.OBPNV1 ---
Date of service: 05/08/21 Time of Service: 18:05 Assessment and Plan Assessment and plan (1) Vaginal delivery: Status: Acute Assessment and plan: I recommended placing Vaseline on her perineum and labia prior to voiding. She will also use external preparation of lidocaine. Her twins have not yet latched on. She is doing excellent job of feeding them. The plan is to have her continue to pump and when her milk supply comes in to continue to pipette feed the (2) Pre-eclampsia affecting , antepartum: Status: Acute Assessment and plan: Blood pressure stable. Plan at this time is to discharge the patient to [facility] status if her twins are not able to be discharged home with her tomorrow. Subjective Subjective Interval history: day 2 after of di-di twin gestation. Patient continues to use a pump for extract breastmilk. She is currently Pipelle feeding both infants formula. She reports that her milk supply is not yet come in. No report of nipple excoriation or breast engorgement. Patient comments: Flatus present and Other (Pain at labial laceration site when voiding) Patient's Mood: Tired but satisfactory baby status: Doing well (Twin B was under bili lights for 24 hours. Both are now in open crib), Rooming in, Strong Bonding Observed and Jaundice (Improved) [place] feeding status: Pipette Feeding Exam Physical Exam Vital signs: Temp Pulse Resp BP Pulse Ox 97.7 F 81 16 146/85 H 99 05/08/21 16:40 05/08/21 16:40 05/08/21 16:40 05/08/21 16:40 05/08/21 07:45 Vital Signs Reviewed: Yes Notable Details: Blood pressure stable Constitutional Constitutional: no acute distress HEENT Exam HEENT Exam: Not Done Neck Exam Neck Exam: Not Done Respiratory Exam Respiratory Exam: Normal Cardiovascular Exam Cardiovascular Exam: Normal (Lower extremity edema bilaterally) Abdominal Exam Comments: Diastases palpated Fundal Exam Fundus: Below Umbilicus and Firm Rectal Exam Rectal Exam: Not Done Exam Patient deferred: external exam and perineal exam (Both exams deferred. Yesterday patient had external laceration of left upper labia) Extremities Exam Extremity Exam: Edema (Pulses present. Both extremities equal in size) Back/Spine/Pelvis Exam Back Exam: Normal Skin Exam Skin Exam: Normal Neurological Exam Neurological Exam: Not Done Psychiatric Exam Psychiatric Exam: Normal Results Hemoglobin/Hematocrit: Hgb 6.9 g/dL (11.2-15.7) L* 05/06/21 06:00 Hct 22.3 % (36.0-46.0) L D 05/06/21 06:00 Abnormal Lab Findings: Abnormal Labs 05/03/21 05/03/21 05/06/21 17:58 17:58 06:00 WBC 13.88 H RBC 3.56 L 2.78 L Hgb 8.9 L 6.9 L* Hct 29.2 L 22.3 L D MCH 25.0 L 24.8 L MCHC 30.5 L 30.8 L RDW 15.6 H 15.9 H Anion Gap 11.1 H Alkaline Phosphatase 164 H Albumin 2.3 L
[2021-05-08 20:05] VITALS: BP 147/84; PULSE 81; RESP 18
[2021-05-08 23:51] VITALS: BP 135/89; PULSE 81; RESP 18
[2021-05-09] MEDS: Levothyroxine 150 MCG TAB PO (05:50)
[2021-05-09 09:30] VITALS: BP 134/90; PULSE 98; RESP 18; TEMP 36.9; O2SAT 100
[2021-05-09] MEDS: Acetaminophen 325 MG TAB 650 MG PO (09:36)
[2021-05-09] MEDS: Citalopram 20 MG TAB PO (09:36)
[2021-05-09] MEDS: Ibuprofen 600 MG TAB PO (09:36)
--- NOTE | 2021-05-09 12:40 | DSE_ITS ---
Date of service: 05/09/21 Time of Service: 12:40 DS: Diagnosis Discharge Diagnosis (1) Vaginal delivery: Status: Acute (2) Pre-eclampsia affecting , antepartum: Status: Acute (3) Twin gestation in third trimester: Status: Acute Discharge Plan Disposition Patient Disposition: HOME Condition: Improving Discharge Details Reason For Visit: IOL Admit Date/Time: 05/03/21 16:36 Admit Provider: Hailey Chong Attending Provider: Hailey Chong Primary Care Provider: Tita Fabian Hospital Course Hospital Course: IOL for pre-eclampsiaat 36w2d EGA. Underwent an uncomplicated of twin male infants Samina. PP course uncomplicated. Pt has experienced discomfort on L labia minora, superficial excoriation from delivery that did not require repair. Pumping breast milk which she pipette feeds to her infants. She then supplements feeding with formula. Minimal uterine discomfort. She will have a two week PP visit at [facility]. Home Meds and New Rx's Prescriptions: No Action ferrous fumarate 325 mg (106 mg iron) tablet 325 mg PO DAILY RF: 0 ondansetron HCl 4 mg tablet 4 mg PO Q8H Qty: 30 RF: 0 ascorbate calcium (vitamin C) 500 mg tablet 500 mg PO DAILY RF: 0 Gummies 400 mcg-35 mg- 25 mg-5 mg tablet,chewable 1 tab PO DAILY RF: 0 metoclopramide HCl [Reglan] 10 mg tablet 10 mg PO Q6H PRN (Reason: nausea and vomiting) Qty: 20 RF: 3 citalopram 20 mg tablet 20 mg PO DAILY Qty: 60 RF: 3 (DME) breast pump Device See Rx Instructions .ROUTE .MEDSUPPLY Qty: 1 RF: 0 metronidazole [Flagyl] 500 mg tablet 500 mg PO BID Qty: 14 RF: 0 (DME) blood-glucose meter [FreeStyle Lite Meter] Kit See Rx Instructions .ROUTE .MEDSUPPLY Qty: 1 RF: 0 (DME) FreeStyle Lite Strips Strip See Rx Instructions .ROUTE .MEDSUPPLY Qty: 100 RF: 3 (DME) lancets [FreeStyle Lancets] 28 gauge misc See Rx Instructions .ROUTE .MEDSUPPLY Qty: 100 RF: 3 cholecalciferol (vitamin D3) 10 mcg (400 unit) capsule 10 mcg PO DAILY Qty: 90 RF: 3 levothyroxine [Levoxyl] 150 mcg tablet 150 mcg PO DAILY Qty: 90 RF: 4 amoxicillin-pot clavulanate [Augmentin] 875-125 mg tablet 1 tab PO BID Qty: 14 RF: 0 Discharge Instructions Additional Instructions: Make f/u appt with Dr. Dodson for 2 for check. Stand Alone Forms: BC Instructions, BC Post Vaginal Deliver Activity:: Activity as Tolerated Equipment/Supplies:: No Equipment Needed Diet:: As Tolerated Discharge Orders Discharge Orders: Discharge Order (Routine); Ordered 05/09/21 Ordered By: Lou Dodson OB:DS Summary Summary Vaginal Delivery Method: Spontaneaous Laceration Description: Perineal Laceration Extension: First Degree Contraception Discussed Contraception Discussed: No, [place] Infant Gender-Baby A: Male weight: 5 lb 9.596 oz Infant Gender-Baby B: Male Weight-Baby B: 5 lb 14.711 oz Status at Discharge Functional status at discharge: independent ambulation Overall status at discharge: patient is progressing back to baseline Mental Status: mental status grossly normal Speech and Movement: speech and movement normal Mood: congruent mood Affect: normal affect Exam Physical Exam Vital signs: Temp Pulse Resp BP Pulse Ox 98.4 F 98 H 18 134/90 100 05/09/21 09:30 05/09/21 09:30 05/09/21 09:30 05/09/21 09:30 05/09/21 09:30 Vital Signs Reviewed: Yes Notable Details: BP has stabilized. Constitutional Constitutional: no acute distress HEENT Exam HEENT Exam: Normal Neck Exam Neck Exam: Normal Respiratory Exam Respiratory Exam: Normal Cardiovascular Exam Cardiovascular Exam: Normal Abdominal Exam Comments: normal. Fundal Exam Fundus: Below Umbilicus Rectal Exam Rectal Exam: Not Done Exam Patient deferred: external exam (L upper labia minora - ) Perineum: Bruising External: Present normal urethra appearance; Absent ecchymosis Extremities Exam Extremity Exam: Edema (symmetric. CHLOE hose in place) Back/Spine/Pelvis Exam Back Exam: Not Done Skin Exam Skin Exam: Normal Neurological Exam Neurological Exam: Normal Psychiatric Exam Psychiatric Exam: Normal [facility] Active Problem List Dental infection (Acute) Twin gestation in third trimester (Acute) Anemia affecting (Acute) Hip pain (Acute) Twin gestation in second trimester (Acute) Gestational diabetes (Acute) Elevated glucose (Acute) Vaginal discharge during in first trimester (Acute) (Acute) Depression (Chronic) Twin gestation in first trimester (Acute) First trimester bleeding (Acute) Bleeding in early (Acute) Hypothyroid (Acute 04/21/14) Medical History Contraception Surgical History Appendectomy Age 11yrs Family History Mother Alzheimers disease Father Diabetes Hyperlipidemia Thyroid disorder hypothyroid Grandmother Lung cancer maternal Diabetes Grandmother Breast cancer paternal Diabetes Sister Thyroid disorder hyperthyroid, resolved after Social History (Updated 05/09/21 @ 12:42 by Lou Dodson MD) Smoking/Tobacco Use Status: Current-Occasional Tobacco Type: cigarettes Tobacco: How many years used: 12 Quit status: has quit before Smoking risk assessment performed?: Yes Alcohol Intake: never Drug use: Never Substance use type: does not use Household members: significant other, children and other Details: S- Baby boy Noel [place]. Baby boy Eric Sergio Number of Children: 1 Education Level: college current occupation: Nurse at [employer] Do you feel safe at home: Yes Do you feel safe in your relationship?: Yes History History 1 Para 1 Hx # Term Pregnancies 0 Multiple births Hx # Pregnancies Ectopic pregnancies AB induced Hx Number of Living Children 2 AB spontaneous DS: Data Vitals/I&O Vitals and I&O: Vital Signs Temperature 98.4 F 05/09/21 09:30 Temperature Source Oral 05/05/21 01:54 Pulse 98 H 05/09/21 09:30 Pulse Rhythm Regular 05/09/21 09:30 Respiratory Rate 18 05/09/21 09:30 Respiratory Depth Normal 05/04/21 20:02 Blood Pressure 134/90 05/09/21 09:30 Blood Pressure Mean 104 05/09/21 09:30 Pulse Oximetry 100 05/09/21 09:30 Oxygen Delivery Method Room Air 05/03/21 17:54 Oxygen Flow Rate 0 05/03/21 17:54 Pain Level 3 05/09/21 09:36 Comment 05/04/21 17:22 Intake & Output 05/08/21 05/09/21 05/09/21 23:59 11:59 23:59 Other: Urine Color Yellow
== END 2021-05-09 14:30 | disposition home or self-care (01) | DRG 807 ==
PROVIDERS: Obstetrics & Gynecology; Admitting Provider Obstetrics & Gynecology; PCP Nurse Practitioner Family; Visit Provider Obstetrics & Gynecology
PROC: 10E0XZZ Delivery of Products of Conception, External Approach (ICD-10-PCS; CPT 59409; principal; 2021-05-04 20:00)
DX: O30.043 Twin pregnancy, dichorionic/diamniotic, third trimester (principal); Z37.2 Twins, both liveborn; Z3A.36 36 weeks gestation of pregnancy; O14.04 Mild to moderate pre-eclampsia, complicating childbirth; O99.02 Anemia complicating childbirth; D64.9 Anemia, unspecified; O99.284 Endocrine, nutritional and metabolic diseases complicating childbirth; E03.9 Hypothyroidism, unspecified; O24.429 Gestational diabetes mellitus in childbirth, unspecified control; O99.344 Other mental disorders complicating childbirth; F32.A Depression, unspecified; O99.334 Smoking (tobacco) complicating childbirth; F17.210 Nicotine dependence, cigarettes, uncomplicated; O69.81X2 Labor and delivery complicated by cord around neck, without compression, fetus 2; O70.0 First degree perineal laceration during delivery; Z20.822 Contact with and (suspected) exposure to COVID-19
CPT/HCPCS: 36415; 76816; 80053; 85027; 86850; 86900; 86901; 87635; 59200; 88307; J3490

== ENCOUNTER 2021-08-29 16:12 | Outpatient (REF) | payer OTHER, MEDICAID, SELFPAY ==
[2021-08-29 16:45] LABS: Source Nasal/Nares
[2021-08-29 20:23] LABS: COVID-19 PCR Negative (Negative)
== END 2021-08-29 16:13 | disposition home or self-care (01) ==
LOC: LBO 16:12
PROVIDERS: PCP Nurse Practitioner Family; Visit Provider Family Medicine
DX: Z20.822 Contact with and (suspected) exposure to COVID-19 (principal)
CPT/HCPCS: 87635

== ENCOUNTER 2021-11-28 13:32 | Emergency (ER) | payer OTHER, SELFPAY ==
[2021-11-28 13:41] VITALS: BP 129/86; PULSE 93; RESP 17; TEMP 36.9; O2SAT 98
--- NOTE | 2021-11-28 14:30 | DI.US_ITS ---
Exam(s) US ABDOMEN EXAM: US ABDOMEN CLINICAL HISTORY: epigastric/RUQ pain TECHNIQUE: Ultrasound abdomen performed using standard protocol. COMPARISON: No exams were available for comparison FINDINGS: LIVER: Enlarged at 19.5 cm in length. Mild hepatic steatosis. No focal liver lesions are seen.. GALLBLADDER: No evidence of cholelithiasis. No evidence of wall thickening. No pericholecystic fluid identified. DE LOS SANTOS'S SIGN: Negative. BILIARY SYSTEM: No intrahepatic or extrahepatic biliary ductal dilation. KIDNEYS: Kidneys are symmetric in size. No evidence of renal calculi. No evidence of hydronephrosis. No renal mass or cyst identified. PANCREAS: Normal where visualized. SPLEEN: Not enlarged. ABDOMINAL AORTA AND IVC: Visualized portions normal caliber. ASCITES: None seen. IMPRESSION: Mildly enlarged liver with mild hepatic steatosis. Normal gallbladder. DATA REPOSITORY:
--- NOTE | 2021-11-28 14:51 | W.ED.GENAD ---
Discharge Plan Disposition Patient Disposition: HOME Condition: Good Discharge Details Clinical Impression: Abdominal pain, Anemia Primary Care Provider: Tita Fabian ED Provider: Padma Christopher Home Meds and New Rx's Prescriptions: New pantoprazole [Protonix] 40 mg tablet,delayed release (DR/EC) 40 mg PO DAILY Qty: 30 0RF Continued citalopram 20 mg tablet 20 mg PO DAILY Qty: 60 3RF (DME) breast pump Device See Rx Instructions .ROUTE .MEDSUPPLY Qty: 1 0RF Rx Instructions: As directed levothyroxine [Levoxyl] 150 mcg tablet 150 mcg PO DAILY Qty: 90 4RF levonorgestrel-ethinyl estrad 0.1-20 mg-mcg tablet 1 tab PO DAILY Qty: 84 4RF Discharge Instructions Instructions: Abdominal Pain (ED), Anemia (ED) Additional Instructions: Please return immediately to the emergency department if you develop any new or worsening symptoms, if your condition does not improve as expected, or if you become otherwise concerned. It is extremely important that you call soon as possible to make an appointment to be seen in follow-up for this visit by your primary care doctor. Referrals: Tita Fabian [Primary Care Provider] - Medical Decision Making Jeanette Moise is a 31-year-old woman with a history of hypothyroidism presenting to emergency department abdominal pain. Patient reports that on the morning of 11/27/2021 at approximately 2 AM she was awoken from sleep by epigastric abdominal pain. Patient reports that pain was severe, that she cannot find a position of comfort, and onset of pain was followed by several episodes of vomiting. Patient reports the pain lasted for 1 to 2 hours. Patient reports that she then felt well and in her usual state of health yesterday. Patient reports that she ate meals yesterday as usual without issue. She reports that she went to bed, and woke up again at approximately 2 in the morning with the same severe sharp epigastric pain that she had the night before, again followed by vomiting. Patient reports the pain lasted for 2 hours and then resolved. Patient reports that she has very mild epigastric aching/discomfort today, she rates it as a 2 out of 10 as a opposed to a 7 out of 10 pain for the pain that she had in the middle of the night. She reports that she has eaten today without issue. She denies any other pain, fever, cough, shortness of breath, diarrhea, constipation, numbness, weakness, rash. Patient reports that she has never had similar symptoms in the past. She reports that she had her appendix out when she was 11 years old. She reports occasional alcohol use, has not had any for the past few days. Denies recreational drug use, denies tobacco/nicotine. On exam patient is well nontoxic-appearing. There is tenderness palpation across the upper abdomen, worse in the epigastrium. Positive Hastings sign. No peritoneal signs. Concern for biliary disease, gastritis, other. Exam/history at this time not consistent with acute coronary syndrome, sepsis, diverticulitis, acute aortic pathology, gynecologic etiology. Plan for screening labs, ultrasound, IV placement, EKG. Labs reviewed, WBC 9.89, hemoglobin 9.0 which is at baseline for patient, lipase normal. Ultrasound shows no acute process. EKG is nondiagnostic. Possible gastritis, plan for PPI, outpatient follow-up. I had a discussion with Patient regarding return to emergency department precautions, home care, and importance of outpatient follow-up. Pt verbalizes understanding of the plan and is amenable. Patient discharged to home with clear plan for outpatient follow-up. All questions were answered. Disposition decision was made weighing the risks and benefits of hospitalization versus outpatient treatment, the risk for further decompensation, and the patient's wishes. Medical Records Medical records reviewed: Yes I reviewed the patient's medical records. Imaging Data Radiologic Study: Attestation: I personally reviewed and interpreted this imaging study as follows: Radiologist's impression: EXAM: ? US ABDOMEN CLINICAL HISTORY: ? epigastric/RUQ pain TECHNIQUE:? Ultrasound abdomen performed using standard protocol. COMPARISON:? No exams were available for comparison FINDINGS: LIVER: Enlarged at 19.5 cm in length.? Mild hepatic steatosis.? No focal liver lesions are seen.. GALLBLADDER: No evidence of cholelithiasis. No evidence of wall thickening. No pericholecystic fluid identified. HASTINGS'S SIGN: Negative. BILIARY SYSTEM: No intrahepatic or extrahepatic biliary ductal dilation. KIDNEYS: Kidneys are symmetric in size. No evidence of renal calculi. No evidence of hydronephrosis. No renal mass or cyst identified. PANCREAS: Normal where visualized. SPLEEN: Not enlarged. ABDOMINAL AORTA AND IVC: Visualized portions normal caliber. ASCITES: None seen. IMPRESSION: Mildly enlarged liver with mild hepatic steatosis.? Normal gallbladder. Lab Data Lab results reviewed: Yes I reviewed the patient's lab results. Labs: 11/28/21 14:53 Urine - Reflex from Ua Urine Culture - Pending Laboratory Tests Range/Units 11/28/21 11/28/21 11/28/21 14:51 14:51 14:53 WBC (4.4-10.8) 10^3/uL 9.89 RBC (3.93-5.22) 10^6/uL 4.28 Hgb (11.2-15.7) g/dL 9.0 L Hct (36.0-46.0) % 30.7 L MCV (80-95) fL 72 L MCH (27.0-33.0) pg 21.0 L MCHC (32.0-36.0) % 29.3 L RDW (11.7-14.6) % 17.3 H Plt Count (130-400) 10^3/uL 395 MPV (8.0-11.0) fL 7.9 L Immature Gran % 0.3 Neutrophils % 50.4 Lymphocytes % 38.4 Monocytes % 6.6 Eosinophils % 4.0 Basophils % 0.3 Nucleated RBC % (0.0-0.3) % 0.0 Absolute Neutrophils (1.2-6.7) 10^3/uL 4.98 Absolute Lymphocytes (1.2-3.4) 10^3/uL 3.80 H Absolute Monocytes (0.1-0.8) 10^3/uL 0.65 Absolute Eosinophils (0.0-0.7) 10^3/uL 0.40 Absolute Basophils (0.0-0.2) 10^3/uL 0.03 Sodium (136-145) mmol/L 138 Potassium (3.5-5.1) mmol/L 3.7 Chloride (98-107) mmol/L 104 Carbon Dioxide (21.0-32.0) mmol/L 27.8 Anion Gap (3-11) mmol/L 6.2 BUN (7-18) mg/dL 8 Creatinine (0.55-1.02) mg/dL 0.8 Estimated GFR/1.73 m2 (mL/min/1.73m2) >= 60.00 Glucose (74-106) mg/dL 117 H Calcium (8.5-10.1) mg/dL 8.6 Total Bilirubin (0.2-1.0) mg/dL 0.2 AST (15-37) U/L 14 L ALT (14-59) U/L 23 Alkaline Phosphatase (46-116) U/L 85 Total Protein (6.4-8.2) g/dL 7.9 Albumin (3.4-5.0) g/dL 3.6 Lipase (73-393) U/L 50 Urine Color (Yellow) Yellow Urine Clarity (Clear) Clear Urine pH (5-8) 7.0 Ur Specific [place] (1.005-1.025) 1.025 Urine Protein (Negative) mg/dL Negative Urine Ketones (Negative) mg/dL Negative Urine Blood (Negative) Moderate H Urine Nitrite (Negative) Negative Urine Bilirubin (Negative) Negative Urine Urobilinogen (Up TO 0.2) EU/dL 0.2 Ur Leukocyte Esterase (Negative) Negative Urine RBC (0-2) HPF 3-5 H Urine WBC (0-5) HPF 3-5 Ur Epithelial Cells (Negative) HPF Few Urine Crystals (Negative) HPF Negative Urine Bacteria (Negative) HPF Many Urine Casts (Negative) LPF Negative Urine Mucus (Negative) Moderate Ur Culture Indicated? Yes Urine Glucose (Negative) mg/dL Negative ECG Data Attestation: I personally reviewed and interpreted this ECG (s) as follows: Interpretation: EKG shows sinus rhythm at 70, normal axis, no acute ischemic changes, nondiagnostic EKG HPI General Mode of arrival: ambulatory. Date/Time Provider Initiated Documentation: 11/28/21 14:04. Limitations to Documentation: no limitations. Information obtained by: patient, RN notes reviewed and old records reviewed. HPI Narrative: Jeanette Moise is a 31-year-old woman with a history of hypothyroidism presenting to emergency department abdominal pain. Patient reports that on the morning of 11/27/2021 at approximately 2 AM she was awoken from sleep by epigastric abdominal pain. Patient reports that pain was severe, that she cannot find a position of comfort, and onset of pain was followed by several episodes of vomiting. Patient reports the pain lasted for 1 to 2 hours. Patient reports that she then felt well and in her usual state of health yesterday. Patient reports that she ate meals yesterday as usual without issue. She reports that she went to bed, and woke up again at approximately 2 in the morning with the same severe sharp epigastric pain that she had the night before, again followed by vomiting. Patient reports the pain lasted for 2 hours and then resolved. Patient reports that she has very mild epigastric aching/discomfort today, she rates it as a 2 out of 10 as a opposed to a 7 out of 10 pain for the pain that she had in the middle of the night. She reports that she has eaten today without issue. She denies any other pain, fever, cough, shortness of breath, diarrhea, constipation, numbness, weakness, rash. Patient reports that she has never had similar symptoms in the past. She reports that she had her appendix out when she was 11 years old. She reports occasional alcohol use, has not had any for the past few days. Denies recreational drug use, denies tobacco/nicotine. Related Data Home Medications Medication Instructions Recorded Confirmed levothyroxine 150 mcg tablet 150 mcg PO DAILY #90 tabs 03/08/21 11/28/21 (Levoxyl) breast pump #1 ea 03/24/21 11/28/21 citalopram 20 mg tablet 20 mg PO DAILY #60 tabs 03/24/21 11/28/21 levonorgestrel-ethinyl estradiol 1 tab PO DAILY #84 tabs 11/15/21 11/28/21 0.1 mg-20 mcg tablet pantoprazole 40 mg tablet,delayed 40 mg PO DAILY #30 tabs 11/28/21 release (Protonix) Previous Rx's Medication Instructions Recorded levothyroxine 150 mcg tablet 150 mcg PO DAILY #90 tabs 03/08/21 (Levoxyl) breast pump #1 ea 03/24/21 citalopram 20 mg tablet 20 mg PO DAILY #60 tabs 03/24/21 levonorgestrel-ethinyl estradiol 1 tab PO DAILY #84 tabs 11/15/21 0.1 mg-20 mcg tablet pantoprazole 40 mg tablet,delayed 40 mg PO DAILY #30 tabs 11/28/21 release (Protonix) Allergies Allergy/AdvReac Type Severity Reaction Status Date / Time No Known Drug Allergies Allergy Verified 11/28/21 13:45 General Stated Complaint: Abd Prob ROBIN: 4 Review of Systems Narrative: Constitutional: denies fevers Eyes: denies eye pain ENT: denies ear pain, dental pain, sore throat Cardiovascular: denies chest pain Respiratory: denies SOB, cough GI: Reports abdominal pain, vomiting, denies diarrhea, constipation : denies flank pain MSK: denies back pain, neck pain, arthralgias, myalgias Skin: denies rash Neuro: denies headaches, numbness, weakness PFSH All Active Problems (Updated 11/28/21 @ 16:00 by Padma Christopher MD) Anemia (Chronic) Abdominal pain (Acute) Oral contraception initial prescription (Acute) Medical History (Updated 11/28/21 @ 16:00 by Padma Christopher MD) Depression Hip pain History of placenta accreta Found on path evaluation of placenta. No complication during delivery. Hypothyroid (04/21/14) Vaginal delivery 05/05/2021. Di/Di twin gestation. No complications Surgical History Appendectomy Age 11yrs Family History Mother Alzheimers disease Father Diabetes Hyperlipidemia Thyroid disorder hypothyroid Grandmother Lung cancer maternal Diabetes Grandmother Breast cancer paternal Diabetes Sister Thyroid disorder hyperthyroid, resolved after Social History Smoking/Tobacco Use Status: Former Tobacco Use Quit Date: 05/18/20 Tobacco: How many years used: 12 Quit status: has quit before Smoking risk assessment performed?: Yes Alcohol Intake: never Drug use: Never Substance use type: does not use Household members: significant other, children and other Details: S- Baby boy Noel Yao. Baby boy Eric Hill Number of Children: 1 Education Level: college current occupation: Nurse at [employer] Do you feel safe at home: Yes Do you feel safe in your relationship?: Yes History History 1 Para 2 Hx # Term Pregnancies 0 Multiple births Hx # Pregnancies 1 Ectopic pregnancies AB induced Hx Number of Living Children 2 AB spontaneous Past Pregnancies Del. Date GA/Weeks # Outcome Route Wgt Sex Labor Lgth Anesthesia Location Prov Complic 05/05/21 36 Yes Successful vaginal Male LB Delivery Date: 05/05/21 Last Updated by: Rachell Montes RN baby boy A 5lb 9.5oz baby boy B 5lb .14oz Exam Narrative Exam Narrative: Constitutional: well and [id number], pleasant, conversing normally HENT: head atraumatic/normocephalic/normal inspection, mucous membranes moist Eyes: conjunctiva normal, sclera normal, pupils 3mm b/l Neck: no stridor, normal ROM, trachea midline Resp: normal work of breathing, speaking full sentences Cardio: normal rate, normal rhythm, no murmur appreciated GI: abdomen soft, no tenderness palpation of the lower quadrant, there is tenderness across the upper abdomen, worse in epigastrium > RUQ > LUQ, positive Hastings sign, no rebound, no guarding, non-distended Back: No CVA tenderness to palpation bilaterally Skin: warm, dry, normal color, no rash Neuro: alert, not altered, grossly non-focal, normal tone Ext: no edema, no posterior calf tenderness palpation Psych: normal mood, normal affect, normal behavior Course Vital Signs Vital signs: Vital Signs Temperature 36.9 C 11/28/21 13:41 Pulse 93 H 11/28/21 13:41 Respiratory Rate 17 11/28/21 13:41 Blood Pressure 129/86 11/28/21 13:41 Pulse Oximetry 98 11/28/21 13:41 Temperature 36.9 C 11/28/21 13:41 Temperature Source Temporal Artery Scan 11/28/21 13:41 Pulse 93 H 11/28/21 13:41 Respiratory Rate 17 11/28/21 13:41 Respiratory Effort Non-Labored 11/28/21 13:44 Blood Pressure 129/86 11/28/21 13:41 Blood Pressure Position Sitting 11/28/21 13:41 Pulse Oximetry 98 11/28/21 13:41 Oxygen Delivery Method Room Air 11/28/21 13:41 Oxygen Flow Rate 0 11/28/21 13:41 Pain Level 0 11/28/21 14:27 PAWSS Have you Been Recently Intoxicated or Drunk Within the Last 30 days?: No Have you Ever Experienced Previous Episodes of Alcohol Withdrawal?: No Have you ever Experienced Withdrawal Seizures?: No Have you ever Experienced Delirium Tremens(DT)s?: No Have you ever undergone Alcohol Rehabilitation Treatment (i.e, inpt ot outpatient treatment programs)?: No Have you ever Experienced Blackouts?: No Have you ever Combined Alcohol with other Downers within the last 90 days?: No Have you ever Combined Alcohol with any other Substance of Abuse during the last 90 days?: No Positive Blood Alcohol level on Presentation? [PCS.BAL]: No Evidence of Increased Autonomic Activity (i.e. HR>120, tremor, sweating, agitation, nausea)?: No Result: 0
[2021-11-28 14:59] LABS: Abs Immature Grans 0.03 10^3/uL (0.0-0.06); Absolute Basophil Count 0.03 10^3/uL (0.0-0.2); Absolute Monocyte Count 0.65 10^3/uL (0.1-0.8); Absolute Neutrophil Count 4.98 10^3/uL (1.2-6.7); Basophils % 0.3; HCT 30.7 % (36.0-46.0); Immature Grans % 0.3; Lymphocytes % 38.4; MCHC 29.3 % (32.0-36.0); MCV 72 fL (80-95); MPV 7.9 fL (8.0-11.0); Monocytes % 6.6; Neutrophils % 50.4; Platelet Count 395 10^3/uL (130-400); RBC 4.28 10^6/uL (3.93-5.22); RDW 17.3 % (11.7-14.6); RDW-SD 43.8 fL; WBC 9.89 10^3/uL (4.4-10.8)
[2021-11-28 15:16] LABS: ALT 23 U/L (14-59); AST 14 U/L (15-37); Albumin 3.6 g/dL (3.4-5.0); Alkaline Phosphatase 85 U/L (46-116); Anion Gap 6.2 mmol/L (3-11); BUN 8 mg/dL (7-18); Bilirubin, Total 0.2 mg/dL (0.2-1.0); CO2 27.8 mmol/L (21.0-32.0); CREATININE 0.8 mg/dL (0.55-1.02); Calcium 8.6 mg/dL (8.5-10.1); Chloride 104 mmol/L (98-107); Glucose 117 mg/dL (74-106); Lipase 50 U/L (73-393); Potassium 3.7 mmol/L (3.5-5.1); Sodium 138 mmol/L (136-145); Total Protein 7.9 g/dL (6.4-8.2)
[2021-11-28 15:24] LABS: Bilirubin Negative (Negative); Blood Moderate (Negative); Clarity Clear (Clear); Glucose Negative (Negative); Ketones Negative (Negative); Leukocyte Esterase Negative (Negative); Nitrite Negative (Negative); Specific Gravity 1.025 (1.005-1.025); Urobilinogen 0.2 EU/dL (Up TO 0.2)
[2021-11-28 15:40] LABS: Bacteria Many HPF (Negative); C & S Indicated? Yes; Casts Negative LPF (Negative); Crystals Negative HPF (Negative); Epithelial Cells Few HPF (Negative); Mucus Moderate (Negative)
--- NOTE | 2021-11-28 15:45 | RT.EKG_ITS ---
APPROVED REPORT Exam: Resting ECG Reason for Exam: abdominal pain Patient Location: E HR:70 bpm ECG Measurements Heart Rate 70 AXIS ND 135 P 37 QRSd 111 QRS -3 QT 409 T 43 QTc 441 Conclusion Sinus rhythm...normal P axis, V-rate 60- 99 sinus rhythm at 70, normal axis, no acute ischemic changes, nondiagnostic EKG
[2021-11-28] MEDS: Pantoprazole 40 MG TABCR PO (16:36)
== END 2021-11-28 16:51 | disposition home or self-care (01) ==
PROVIDERS: Emergency Provider Student in an Organized Health Care Education/Training Program; PCP Nurse Practitioner Family
DX: R10.13 Epigastric pain (principal); D64.9 Anemia, unspecified; R10.11 Right upper quadrant pain
CPT/HCPCS: 36415; 80053; 81025; 83690; 93005; 99284; 76700; 81003; 81015; 85025; 87086; 93010; 99283

== ENCOUNTER 2022-03-08 10:53 | Outpatient (REF) | payer MEDICAID, SELFPAY ==
--- OUTSIDE RECORDS SUMMARY | 2022-03-08 10:55 | XMS_ITS | Encounter Summary ---
:1990 Author Organization [facility] Address [address] [place] [address] Care Team Providers Name Role Phone Unknown, Provider Primary Care Provider Encounter Details Date Type Department Care Team Description 03/11/2021 Lab Requisition [facility] Outr Resulting Lab, Pathology & Laboratory Provider [facility] [address] [place] [address] Social History Tobacco Use Types Packs/Day Years Used Date Never Assessed Sex Assigned at Date Recorded Not on file documented as of this encounter Plan of Treatment Not on filedocumented as of this encounter Procedures Procedure Name Priority Date/Time Associated Diagnosis Comme nts [facility] Today 03/11/2021 11:11 LAB PCR EDT COVID-19 TESTING Routine 03/11/2021 11:11 Results for this EDT procedure are i n the results section. documented in this encounter Results COVID-19 TEST [facility] PCR (03/11/2021 11:11 EDT) Specimen Swab - Entire nasopharynx (body structur e) Performing Organization Address City/State/ZIP Code Phon e Number [facility] [address] [place] [address] SERVICES COVID-19 TESTING (03/11/2021 11:11 EDT) COVID-19 rt-PCR Negative Negative [facility] Result Comment: CENTER LABOR[facility]ORY This test has not been FDA c leared or approved. This test has been authorized by FDA under an EUA for use by authorized laboratories. This test has been authorized only for detection of nucleic acid fro SERVICES m 2019-nCoV, not for any oth er viruses or pathogens. This test is only authorized for the duration of the declaration that circumstances exist justifying the authorization of emergency use of in vitro d iagnostic tests for detectio n and/or diagnosis of 2019-nCoV under section 564(b)(1) of Act, 21 U.S.C ?? 360bbb-3(b) (1), unless the authorization is terminated or revoked sooner. Negative results do not prec lude 2019-nCoV infection and should not be used as the sole basis for treatment or other patient management decisions. Negative results must be combined with clinical observa tions, patient history, and epidemiological informatio n. Performed on the snapp.me Fusion instrument Performing Lab [place] [facility] Lab [facility] SERVICES Specimen Swab Performing Organization Address City/State/ZIP Code Phon e Number [facility] [address] [place] [address] SERVICES documented in this encounter Visit Diagnoses Not on filedocumented in this encounter Care Teams Office Director Relationship Specialty Start Date End Date Unknown, Provider, PCP - General 04/25/15 documented as of this encounter
--- OUTSIDE RECORDS SUMMARY | 2022-03-08 10:55 | XMS_ITS | Encounter Summary ---
:[address] [facility] Address [address] [place] [address] Care Team Providers Name Role Phone Unknown, Provider Primary Care Provider Encounter Details Date Type Department Care Team Description 11/04/[address] [facility] Outr Resulting Lab, Pathology & Laboratory Provider [facility] [address] [place] [address] Social History Tobacco Use Types Packs/Day Years Used Date Never Assessed Sex Assigned at Date Recorded Not on file documented as of this encounter Plan of Treatment Not on filedocumented as of this encounter Procedures Procedure Name Priority Date/Time Associated Comments Diagnosis CHLAMYDIA/N. Routine 11/03/2020 13:50 Results for this GONORRHOEAE AMPLIFIED EDT proced ure are in RNA the results section. documented in this encounter Results CHLAMYDIA/N. GONORRHOEAE AMPLIFIED RNA (11/03/2020 13:50 EDT) Pathologist Sig nature Gonococcus Result Negative Negative [facility] Chlamydia Result Negative Negative [facility] Specimen Swab - Entire endocervix (body structure ) Performing Organization Address City/State/ZIP Code Phon e Number [facility] [address] [place] [address] SERVICES documented in this encounter Visit Diagnoses Not on filedocumented in this encounter Care Teams Dynamic Balancer Set Up Worker Relationship Specialty Start Date End Date Unknown, Provider, PCP - General 04/25/15 documented as of this encounter
--- OUTSIDE RECORDS SUMMARY | 2022-03-08 10:55 | XMS_ITS | Encounter Summary ---
:1990 Author Organization [facility] Address [address] [place] [address] Care Team Providers Name Role Phone Unknown, Provider Primary Care Provider Encounter Details Date Type Department Care Team Description 06/05/2020 Lab Requisition [facility] Outr Resulting Lab, Pathology & Laboratory Provider [facility] [address] [place] [address] Social History Tobacco Use Types Packs/Day Years Used Date Never Assessed Sex Assigned at Date Recorded Not on file documented as of this encounter Plan of Treatment Not on filedocumented as of this encounter Procedures Procedure Name Priority Date/Time Associated Comments Diagnosis CHLAMYDIA/N. Routine 06/04/2020 15:36 Results for this GONORRHOEAE AMPLIFIED EST proced ure are in RNA the results section. documented in this encounter Results CHLAMYDIA/N. GONORRHOEAE AMPLIFIED RNA (06/04/2020 15:36 EST) Pathologist Sig nature Gonococcus Result Negative Negative [facility] Chlamydia Result Negative Negative [facility] Specimen Swab - Entire endocervix (body structure ) Performing Organization Address City/State/ZIP Code Phon e Number [facility] [address] [place] [address] SERVICES documented in this encounter Visit Diagnoses Not on filedocumented in this encounter Care Teams Director Law Enforcement Relationship Specialty Start Date End Date Unknown, Provider, PCP - General 04/25/15 documented as of this encounter
--- OUTSIDE RECORDS SUMMARY | 2022-03-08 10:55 | XMS_ITS | Encounter Summary ---
:1990 [place] [address] Care Team Providers Name Role Phone Mine Russ DAVILA Primary Care Provider Encounter Details Date Type Department Care Team Description 01/04/2016 Orders Only Occupational Medicine at Nelly Jones APRN [facility] Marcus [place] [address] [place] [address] [phone] (Wo rk) Social History Tobacco Use Types Packs/Day Years Used Date Never Assessed Sex Assigned at Date Recorded Not on file documented as of this encounter Plan of Treatment Not on filedocumented as of this encounter Procedures Procedure Name Priority Date/Time Associated Diagnosis Comme nts QUANTIFERON-TB GOLD Routine 01/04/2016 1:51 PM Re sults for this EDT procedure are i n the results section. documented in this encounter Results QuantiFERON-TB Gold (01/04/2016 1:51 PM EDT) [facility] Method Time Signature Quantiferon TB Negative Negative [facility] Comment: Nil (IU/mL)=0.05 TB Ag minus Nil (IU/mL)=0.01 Mitogen minus Nil (IU/mL)=>10 M. tuberculosis (TB) infection NOT likel y ?A negative specimen should have a TB Ag minus Nil value less than 0.35 IU/mL OR a TB Ag minus Nil greater than or equal to 0.35 IU/mL and in addition the TB Ag minus Nil value must be less t baca 25% of the Nil value. A negative specimen should have a Mitogen minus Nil value greater than or equal to 0.5 IU/mL. ?A negative QuantiFERON-TB Gold IT result does not preclude the possibility of M. tuberculosis infection or tuberculosis disease: false negative results can be due to sta ge of infection (e.g., specimen obtained prior to the development of isamar lular immune response), co-morbid conditions which affect immune function, or other individual immunological factors. ?The performance of the QuantiFERON -TB Gold IT test has not been extensively evaluated with specimens from the follow ing groups of individuals: ?1. Individuals who have impaired o r altered immune function such as those who have HIV infection or AIDS, those wh o have transplantation managed with immunosuppressive treatment or others wh o receive immunosuppressive drugs (e.g., corticosteroids, methotrexate, az athioprine, cancer chemotherapy), and those who have other clinical conditions : diabetes, silicosis, chronic renal failure, hematological disorders (e.g., leukemia and lymphomas), and other specific malignancies (e.g., carcinoma o f the head or neck and lung). ?2. Individuals younger than age 17 years. ?3. women. Note: Diagnosing or excluding tuberculosis dis ease, and assessing the probability of LTBI, require a combination of epidemiol ogical, historical, medical, and diagnostic findings that should be taken into account when interpreting QuantiFERON-TB Gold results. Reference ( http://www.cdc.gov/nchstp/tb/) Specimen Anatomical Collection Method Collection Time Receive d Time (Source) Location / / Volume Laterality Blood specimen Venous Draw / 01/04/2016 1:51 PM 2015 8:04 (specimen) Unknown EDT AM EDT Resulting Agency Comment Spec In Lab Nelly Jnoes MEDIA TRAFFIC MANAGER CHEMISTRY ORDERABLES Performing Organization Address City/State/[place] [address] documented in this encounter Visit Diagnoses Not on filedocumented in this encounter Care Teams Senior Supply Chain Analyst Relationship Specialty Start Date End Date Russ Blount PA PCP - General General Internal Medicine 01/04/16 12/20/20 [address] [place] [address] documented as of this encounter
--- OUTSIDE RECORDS SUMMARY | 2022-03-08 10:55 | XMS_ITS | Encounter Summary ---
:1990 Author Organization [facility] Address [address] [place] [address] Care Team Providers Name Role Phone Unknown, Provider Primary Care Provider Encounter Details Date Type Department Care Team Description 09/28/2017 Results Only [facility]- Mia Gaona, [facility] [phone] [place] [address] [place] [address] (Wo rk) Social History Tobacco Use Types Packs/Day Years Used Date Never Assessed Sex Assigned at Date Recorded Not on file documented as of this encounter Plan of Treatment Not on filedocumented as of this encounter Procedures Procedure Name Priority Date/Time Associated Diagnosis Comme nts PAP TEST- RESULT Routine 09/28/2017 0:00 EDT Resu lts for this ONLY procedure are i n the results section. documented in this encounter Results PAP TEST- RESULT ONLY (09/28/2017 0:00 EDT) Pathology Report: CYTOPATHOLOGY REPORT [facility] Reports generated via electronic interface contain yaima ginal data; SERVICES however they are lacking the format of the original re port. Caution should be taken when reading/interpreting unfo rmatted reports. Name: ? JEANETTE MOISE ? Accession #: ? [id number] : ? 1990 (Age: [age]) ??F ?Collect Date: ? 09/28 Location: ? [facility] ? Receive Date : ? 10/01/2017 Provider: ?MIA LARKIN SLAB POLISHER Copy to: ?EMILIANO LESTER PAC ? Specimen/Source: ? Pap Test, Cervix, ThinPrep Imaging System with manual evaluation Last Menstrual Period: ? 09/19/17 Hormonal/Contraceptive Status: ? Oral contraceptives ? SPECIMEN ADEQUACY ? Satisfactory for Evaluation - transformation zone component present GENERAL CATEGORIZATION ? Negative for Intraepithelial Lesion or Malignan cy ? Document reviewed and electronically signed by: ? KRYSTYNA Melissa(ASCP) ? Report Date: ??10/08/2017 13:33 End of Report Specimen Performing Organization Address City/State/ZIP Code Phon e Number [facility] [address] [place] [address] SERVICES documented in this encounter Visit Diagnoses Not on filedocumented in this encounter Care Teams Applied Psychology Teacher Relationship Specialty Start Date End Date Unknown, Provider, PCP - General 04/25/15 documented as of this encounter
--- OUTSIDE RECORDS SUMMARY | 2022-03-08 10:55 | XMS_ITS | Encounter Summary ---
:1990 Author Organization [facility] Address [address] [place] [address] Care Team Providers Name Role Phone Unknown, Provider Primary Care Provider Encounter Details Date Type Department Care Team Description 01/20/2020 Lab Requisition [facility] Mia Lozano E ncounter for other Pathology & BOX ICER general examination Laboratory Medicine [address] [place], [place] [address] [facility] [address] Center [place], [place] [id number] Social History Tobacco Use Types Packs/Day Years Used Date Never Assessed Sex Assigned at Date Recorded Not on file documented as of this encounter Plan of Treatment Not on filedocumented as of this encounter Procedures Procedure Name Priority Date/Time Associated Diagnosis Comme nts PAP TEST Today 01/16/2020 11:00 EDT Encounter for other Results for this general examination procedur e are in the results section. documented in this encounter Results PAP TEST (01/16/2020 11:00 EDT) Specimens A. Cervix and/or [facility] Endocervix , ThinPrep CENTER Imaging System with LABORATORY Manual Evaluation SERVICES Specimen Adequacy Satisfactory for [facility] Evaluation - CENTER transformation zone LABORATORY component present SERVICES General Negative for [facility] Categorization intraepithelial CENTER lesion or malignancy LABORATORY SERVICES Descriptive Shift in ayush [facility] Diagnosis present suggestive of CENTER bacterial vaginosis. LABORATORY SERVICES Attestation . [facility] CENTER signed by Mookie granado, LABORATORY KRYSTYNA Wallace( CP) SERVICES on 01/30/2020 at 0834 Clinical History SEE ORDER COMMENTS [facility]ORY SERVICES Scanned Images [facility] LABORATORY SERVICES Specimen Pap Test - Cervix and/or Endocervix Performing Organization Address City/State/ZIP Code Phon e Number [facility] [address] [place] [address] SERVICES documented in this encounter Visit Diagnoses Diagnosis Encounter for other general examination documented in this encounter Care Teams Technical Applications Scientist Relationship Specialty Start Date End Date Unknown, Provider, PCP - General 04/25/15 documented as of this encounter
--- OUTSIDE RECORDS SUMMARY | 2022-03-08 10:55 | XMS_ITS | Clinical Summary ---
:1990 Author Organization [facility] [place] [address] Care Team Providers Name Role Phone Unknown Primary Care Provider Unavailable Immunizations Name Administration Dates Next Due Influenza PF, Split 04/14/2016 Social History Tobacco Use Types Packs/Day Years Used Date Never Assessed Sex Assigned at Date Recorded Not on file Plan of Treatment Health Maintenance Due Date Last Done Comments Covid-19 Vaccine (#1) 1997 HIV screen 2010 Hepatitis C Screening 2010 Tdap adult 2011 Tetanus vaccine 2011 PAP Smear 2013 Influenza (Flu) vaccine ( of - Influenza standard 02/16/2022 04/14/2016 series) Care Teams Track Repair Worker Relationship Specialty Start Date End Date Unknown PCP - General 12/21/20 None
--- OUTSIDE RECORDS SUMMARY | 2022-03-08 10:55 | XMS_ITS | Encounter Summary ---
:1990 Author Organization [facility] Address [address] [place] [address] Care Team Providers Name Role Phone Unknown, Provider Primary Care Provider Encounter Details Date Type Department Care Team Description 05/05/2021 Lab Requisition [facility] Nelly King, Encounter for other Pathology & MD general examination Laboratory Medicine [address] [place], [place] 111 [facility] [address] [place], [place] [id number] Social History Tobacco Use Types Packs/Day Years Used Date Never Assessed Sex Assigned at Date Recorded Not on file documented as of this encounter Plan of Treatment Not on filedocumented as of this encounter Procedures Procedure Name Priority Date/Time Associated Diagnosis Comme nts SURGICAL PATHOLOGY Today 05/05/2021 8:16 EST Encounter for o ther Results for this general examination procedur e are in the results section. documented in this encounter Results SURGICAL PATHOLOGY (05/05/2021 8:16 EST) Note to Patient The following [facility] pathology results CENTER have been interpreted LABORATORY by your pathologist SERVICES and may be available to you before your health provider has had the opportunity to review them. Please allow time for your provider to receive these results and explore management options, if applicable. Final Diagnosis A. PLACENTA: [facility] Dichorionic-diamniotic place nta, 855 grams (~50-75th %ile for 36 and 2/7 weeks gestational age). CENTER LABORATORY Twin A (370 grams): SERVICES Disk: - Maternal vascular malperfu helen: accelerated villous maturation, chorangiosis, villous agglutination, increased perivillous fibrin, and small septal thrombus. Membranes: - Chronic chorioamnionitis. - Meconium laden macrophages. Umbilical cord: - 3 vessels. - Minimal acute phlebitis, a nd vasculitis ( inflammatory response stage 2, grade 1). - Meconium laden macrophages in Carthage's jelly. Twin B (485 grams): Disk: - Diffuse chorangiosis. - Minute focus of adherent b marva plate myometrial fibers (PAS stage 1; see comment). Membranes: - Meconium laden macrophages. Umbilical cord: - 3 vessels. - Meconium laden macrophages in Carthage's jelly. Diagnosis Comment Placenta accreta spectrum (PAS) staging: [facility] Stage 0: No adherent myometrial fibers. C ENTER Stage 1: Adherent myometrial fibers with intervening d ecidua. LABORATORY Stage 2: <2 intervening decidual cells. S ERVICES Stage 3: No intervening decidual cells (accreta). Stage 4: Increta. Stage 5: Percreta Stage 6: Involvement of extrauterine organs. Attestation By the signature [facility] Electronica lly below, the attending CENTER signed by Ara physician certifies LABORATORY Inocencia Pires DO on that they have 1) SERVICES 05/17/2021 at 1214 personally conducted a gross and/or microscopic examination of the described specimen(s), and/or personally interpreted the results of laboratory testing of the described specimen(s), and 2) personally rendered or confirmed the above diagnosis. Clinical History Twins - di/di, PEC / [facility] GDM (36.2 weeks) CENTER LABORATORY SERVICES Gross Description A. [facility] Received in formalin tanisha d with proper patient identification (initials L,C) and placenta twins are two discrete placental discs combined weight: 855 grams (trimmed, formalin fixed), both with erma CENTER ched membranes, and at tached segments of umbilical cord arbitrarily oriented as Twin A and Twin B. A dividing membrane is present between the two placentas, and there are no anastomosing vessels. LABORATORY SERVICES Twin A: The membranes of Twin A are complete, estrella white, and moderately transparent with marginate insertion. The point of rupture lies 4.5 cm from the nearest disc margin. The white three vessel umbilica l cord of Twin A is a 36.0 c m in length and 1.5 cm in diameter, demonstrating central insertion, 5.0 cm from the nearest disc margin. There are 3 coils per 10 cm. The placental disc of Twin A is 370 grams (trimmed, formalin fixed), 15.0 x 13.5 x 6 cm and ovoid. The surface is dark purple with a dispersed vascular pattern. There are no lesions present on the surface. The maternal surface is dark purple with an intact basal plate. There is no adherent blood clot. There is no indentation. The cut surface of the placental parenchyma is dark brown purple and centrally red, and spongy. There are no discrete lesions present. Twin B: The membranes of Twin B are complete, estrella white with marginate insertion. The point of rupture is indeterminate. The white three vessel umbil ical cord of Twin B is a 42.0 cm in length and 2.0 cm in diameter, demonstrating central insertion, 6.0 cm from the nearest disc margin. There are 3 coils per 10 cm. The placental disc of Twin B is 485 grams (trimmed, formalin fixed), 20.0 x 13.0 x 6.0 cm and ovoid. The surface is dark purple with a dispersed vascular pattern. There are no lesions present on t he surface. The matern al surface is dark purple with an intact basal plate. There is no adherent blood clot. There is no indentation. The cut surface of the placental parenchyma is dark brown purp le and centrally red, and spongy. There are no discret e lesions present. Locker Operator sections are submitted as follows: BLOCK ALEJANDRA A1 - twin A: cross section of end of cord A2 - twin A: membrane roll A3 - twin A: cross section of cord 5 cm from insertion site A4 - twin A: membrane roll A5 - twin A: full thickness section of placental disc adjacent to umbilical cord insertion site, end A6 - twin A: full thickness section of placental disc adjacent to umbilical cord insertion site, maternal end A7 - twin A: two full thickness sections of central 2/ 3 of placental disc A8 - twin B: membrane roll and cross section of end of cord A9 - twin B: membrane roll and cross section of cord 5 cm from insertion site A10 - twin B: full thickness section of placental disc adjacent to cord insertion site, end A11 - twin B: full thickness section of placental disc adjacent to cord insertion site, maternal end A12 - twin B: two full thickness sections of central 2 /3 of placental disc Marlon Oconnor 05/06/2021 16:37 Performing Lab [facility] Scanned Images [facility] SERVICES Specimen Tissue - Twin placenta (disorder) Performing Organization Address City/State/ZIP Code Phon e Number [facility] [address] [place] [address] SERVICES documented in this encounter Visit Diagnoses Diagnosis Encounter for other general examination documented in this encounter Care Teams Ux Researcher Relationship Specialty Start Date End Date Unknown, Provider, PCP - General 04/25/15 documented as of this encounter
--- OUTSIDE RECORDS SUMMARY | 2022-03-08 10:55 | XMS_ITS | Encounter Summary ---
:1990 Author Organization [facility] Address [address] [place] [address] Care Team Providers Name Role Phone Unavailable Primary Care Provider Unavailable Encounter Details Date Type Department Care Team Description 06/09/2000 Results Only [facility] - Ana Rey, Chr istopher, conversion DO [address] [facility] [address] [facility] ,[place] [address] [place], [place] [id number] [place] [address] (Wo rk) Social History Tobacco Use Types Packs/Day Years Used Date Never Assessed Sex Assigned at Date Recorded Not on file documented as of this encounter Plan of Treatment Not on filedocumented as of this encounter Procedures Procedure Name Priority Date/Time Associated Diagnosis Comme nts SURGICAL PATHOLOGY Routine 06/09/2000 0:00 EST Re sults for this procedure are i n the results section. documented in this encounter Results SURGICAL PATHOLOGY (06/09/2000 0:00 EST) Pathology Report: SURGICAL PATHOLOGY REPORT [facility] Reports generated via electronic interface contain yaima ginal data; LAB however they are lacking the format of the original re port. Caution should be taken when reading/interpreting unfo rmatted reports. Name: ? JEANETTE MOISE ? Accession #: ? [id number] ? : ? 1990 (Age: 10) ??F ? Collect Date: ? 06/09/2000 ? Location: ? [facility] ? Receive Date: ? 000 ? Provider: BRIANNE REY DO Copy to: ELIER CHAPIN MD ? Final Pathologic Diagnosis: ? Appendix, appendectomy: - Acute appendicitis with mild periappendicitis. Document reviewed and electronically signed by: ALIYAH CHAPIN MD Report ??Date: 06/14/2000 14:34 By the signature above, the attending physician certif ies that he/she has personally conducted a gross and/or microscopic examin ation of the described specimens and rendered or confirmed the above diagnosi s. Specimen(s) Received: ? #1 appendix Clinical History: ? Acute abdomen Gross Description: ? Received in formalin labelled Suma and #1 appendix is a vermiform appendix which measures 10.5 cm in length, ranges from 0.6 to 1.4 cm in diameter and is surfaced by estrella white diffusely dusky serosa. There is a minimal amount of attached yellow adipose tissue. ??Upon sectioning, the lumen ranges from 0.2 x 0.5 cm in diameter. ?? It contains a moderate amount of friable hemorrhagic mater ial. ??The wall averages 0.2 cm in thickness with no discrete nodules or perforations grossly identif ied. ??The proximal margin is inked for identification pur poses. ??Three employment representative sections are submitted in one cassette. ??(Ana Link)/cassandra End of Report Specimen Performing Organization Address City/State/ZIP Code Phon e Number [facility] [address] [place] [address] SERVICES [facility] [address] [place] [address] documented in this encounter Visit Diagnoses Not on filedocumented in this encounter
--- OUTSIDE RECORDS SUMMARY | 2022-03-08 10:55 | XMS_ITS | Encounter Summary ---
:1990 Author Organization [facility] Address [address] [place] [address] Care Team Providers Name Role Phone Unknown, Provider Primary Care Provider Encounter Details Date Type Department Care Team Description 09/17/2015 Results Only [facility]- Mia Gaona, [facility] [phone] [place] [address] [place] [address] (Wo rk) Social History Tobacco Use Types Packs/Day Years Used Date Never Assessed Sex Assigned at Date Recorded Not on file documented as of this encounter Plan of Treatment Not on filedocumented as of this encounter Procedures Procedure Name Priority Date/Time Associated Diagnosis Comme nts PAP TEST- RESULT Routine 09/17/2015 0:00 EDT Resu lts for this ONLY procedure are i n the results section. documented in this encounter Results PAP TEST- RESULT ONLY (09/17/2015 0:00 EDT) Pathology Report: CYTOPATHOLOGY REPORT [facility] Reports generated via electronic interface contain yaima ginal data; SERVICES however they are lacking the format of the original re port. Caution should be taken when reading/interpreting unfo rmatted reports. Name: ? JEANETTE MOISE ? Accession #: ? [id number] : ? 1990 (Age: 4 3) ??F ?Collect Date: ? 2015 Location: ? [facility] ? Receive Date : ? 09/20/2015 Provider: ?MIA LARKIN APPRENTICE ARCHITECT Copy to: ? Specimen/Source: ? Pap Test, Cervix/Endocervix, ThinPrep Imaging System with manual evaluation Last Menstrual Period: ? 08/25/15 Hormonal/Contraceptive Status: ? Oral contraceptives ? SPECIMEN ADEQUACY ? Satisfactory for Evaluation - transformation zone component present GENERAL CATEGORIZATION ? Negative for Intraepithelial Lesion or Malignan cy INTERPRETATION ? Reactive cellular mimi nges associated with inflammation present (includes repair). ? Document reviewed and electronically signed by: ? JAMES EMERY MD ? Report Date: ??09/29/2015 12:08 End of Report Specimen Performing Organization Address City/State/ZIP Code Phon e Number [facility] [address] [place] [address] SERVICES documented in this encounter Visit Diagnoses Not on filedocumented in this encounter Care Teams Associate Professor Of Art Relationship Specialty Start Date End Date Unknown, Provider, PCP - General 04/25/15 documented as of this encounter
--- OUTSIDE RECORDS SUMMARY | 2022-03-08 10:55 | XMS_ITS | Encounter Summary ---
:1990 Author Organization [facility] Address [address] [place] [address] Care Team Providers Name Role Phone Unknown, Provider Primary Care Provider Encounter Details Date Type Department Care Team Description 11/04/2020 Lab Requisition [facility] Outr Resulting Lab, Pathology & Laboratory Provider [facility] [address] [place] [address] Social History Tobacco Use Types Packs/Day Years Used Date Never Assessed Sex Assigned at Date Recorded Not on file documented as of this encounter Plan of Treatment Not on filedocumented as of this encounter Procedures Procedure Name Priority Date/Time Associated Diagnosis Comme nts RUBELLA IGG Routine 11/03/2020 14:36 Results for this ANTIBODY EDT procedure are i n the results section. VARICELLA IGG Routine 11/03/2020 14:36 Results fo r this ANTIBODY EDT procedure are i n the results section. documented in this encounter Results VARICELLA IGG ANTIBODY (11/03/2020 14:36 EDT) Varicella IgG Ab PositiveComment: See Note [facility] Presence of LABORATORY SERVICES detectable Varicella Zoster virus IgG antibodies. Specimen Blood - Venous blood (substance) Performing Organization Address [facility] Code Phon e Number [facility] [address] [place] [address] SERVICES RUBELLA IGG ANTIBODY (11/03/2020 14:36 EDT) Rubella IgG Ab PositiveComment: See Note [facility] Positive for IgG LABORATORY SERVICES antibodies to Rubella virus. Specimen Blood - Venous blood (substance) Performing Organization Address [facility] Phon e Number [facility] [address] [place] [address] SERVICES documented in this encounter Visit Diagnoses Not on filedocumented in this encounter Care Teams Stull Hewer Relationship Specialty Start Date End Date Unknown, Provider, PCP - General 04/25/15 documented as of this encounter
--- OUTSIDE RECORDS SUMMARY | 2022-03-08 10:55 | XMS_ITS | Encounter Summary ---
:1990 Author Organization [facility] Address [address] [place] [address] Care Team Providers Name Role Phone Unknown, Provider Primary Care Provider Encounter Details Date Type Department Care Team Description 01/04/2021 Lab Requisition [facility] Outr Resulting Lab, Pathology & Laboratory Provider [facility] [address] [place] [address] Social History Tobacco Use Types Packs/Day Years Used Date Never Assessed Sex Assigned at Date Recorded Not on file documented as of this encounter Plan of Treatment Not on filedocumented as of this encounter Procedures Procedure Name Priority Date/Time Associated Diagnosis Comme nts HEPATITIS B SURFACE Routine 01/04/2021 12:13 Resu lts for this ANTIBODY EDT procedure are i n the results section. documented in this encounter Results HEPATITIS B SURFACE ANTIBODY (01/04/2021 12:13 EDT) Hep B Surface Ab, 59.8 See Note [facility] Quantitative Comment: mIU/mL [facility] Reference Range for Hep B Surface Ab, Quant: SERVICES Positive: >= 10.0 mIU/mL Negative: ??< 10.0 mIU/mL Patient is presumed to be immune to infection with Hep atitis B Virus. Hep B Surface Ab, Positive See Note [facility] Qualitative Comment: [facility] Reference Range for Hep B Surface Ab, Qual: SERVICES Unvaccinated: ??Negative Vaccinated: ??Positive Specimen Blood - Venous blood (substance) Performing Organization Address City/State/ZIP Code Phon e Number [facility] [address] [place] [address] SERVICES documented in this encounter Visit Diagnoses Not on filedocumented in this encounter Care Teams Sas Developer Analyst Relationship Specialty Start Date End Date Unknown, Provider, PCP - General 04/25/15 documented as of this encounter
[2022-03-08 15:44] LABS: HCT 31.9 % (36.0-46.0); HGB 9.2 g/dL (11.2-15.7); MCH 21.2 pg (27.0-33.0); MCHC 28.8 % (32.0-36.0); MCV 74 fL (80-95); MPV 8.6 fL (8.0-11.0); Platelet Count 377 10^3/uL (130-400); RBC 4.34 10^6/uL (3.93-5.22); RDW 16.6 % (11.7-14.6); RDW-SD 43.9 fL; WBC 9.26 10^3/uL (4.4-10.8)
[2022-03-08 16:06] LABS: Iron 22 ug/dL (50-170); Total Iron Binding Capacity 433 ug/dL (250-450); Transferrin Sat 5 % (15-50)
[2022-03-08 16:40] LABS: ALT 20 U/L (14-59); AST 14 U/L (15-37); Albumin 3.3 g/dL (3.4-5.0); Alkaline Phosphatase 66 U/L (46-116); Anion Gap 10.7 mmol/L (3-11); BUN 10 mg/dL (7-18); Bilirubin, Total 0.3 mg/dL (0.2-1.0); CO2 25.3 mmol/L (21.0-32.0); CREATININE 0.8 mg/dL (0.55-1.02); Calcium 8.8 mg/dL (8.5-10.1); Chloride 102 mmol/L (98-107); Estimated GFR 102.22 (mL/min/1.73m2); Ferritin 6 ng/mL (8-252); Glucose 107 mg/dL (74-106); Sodium 138 mmol/L (136-145); TSH 2.71 uIU/mL (0.36-3.74); Total Protein 7.5 g/dL (6.4-8.2); Vitamin B12 190 pg/mL (193-986)
[2022-03-08 16:42] LABS: Folate > 20.0 ng/mL (8.6-20.0)
[2022-03-08 16:59] LABS: FREE T4 1.11 ng/dL (0.76-1.46)
[2022-03-13 12:24] LABS: IgA 229 mg/dL (85-499); Interpretation (See Note); Tissue Transglutaminase IgA <1.2 U/mL (<4.0)
== END 2022-03-08 10:54 | disposition home or self-care (01) ==
LOC: NCHCN 10:53
PROVIDERS: PCP Nurse Practitioner Family; Visit Provider Nurse Practitioner Family
DX: D64.9 Anemia, unspecified (principal); R53.81 Other malaise; F41.8 Other specified anxiety disorders; E03.9 Hypothyroidism, unspecified
CPT/HCPCS: 80053; 82784; 83516; 85027; 82607; 82728; 82746; 83540; 83550; 84439; 84443

== ENCOUNTER 2022-03-11 13:08 | Outpatient (REF) | payer MEDICAID, SELFPAY ==
[2022-03-13 14:46] LABS: Helicobacter pylori Ag, Feces Negative (Negative)
== END 2022-03-11 13:09 | disposition home or self-care (01) ==
LOC: NCHCN 13:08
PROVIDERS: PCP Nurse Practitioner Family; Visit Provider Nurse Practitioner Family
DX: R10.9 Unspecified abdominal pain (principal)
CPT/HCPCS: 87338

== ENCOUNTER 2023-05-22 18:36 | Outpatient (REF) | payer BC, SELFPAY ==
[2023-05-22 20:01] LABS: FREE T4 1.04 ng/dL (0.76-1.46); TSH 3.63 uIU/mL (0.36-3.74)
== END 2023-05-22 18:37 | disposition home or self-care (01) ==
LOC: NCHCN 18:36
PROVIDERS: PCP Nurse Practitioner Family; Visit Provider Nurse Practitioner Family
DX: E03.9 Hypothyroidism, unspecified (principal)
CPT/HCPCS: 82550; 83721; 82607; 83718; 84439; 84443; 84450; 84460

== ENCOUNTER 2023-09-19 05:02 | Outpatient (CLI) | payer BC, SELFPAY ==
[2023-09-19 11:12] LABS: Panorama Kit Sent via Fed Ex
[2023-09-19 11:23] LABS: Abs Immature Grans 0.04 10^3/uL (0.0-0.06); Absolute Basophil Count 0.03 10^3/uL (0.0-0.2); Absolute Eosinophil Count 0.24 10^3/uL (0.0-0.7); Absolute Lymphocyte Count 3.47 10^3/uL (1.2-3.4); Absolute Monocyte Count 0.48 10^3/uL (0.1-0.8); Absolute Neutrophil Count 4.99 10^3/uL (1.2-6.7); Basophils % 0.3; Eosinophils % 2.6; Immature Grans % 0.4; Lymphocytes % 37.5; MCH 29.3 pg (27.0-33.0); MCHC 33.3 % (32.0-36.0); MCV 88 fL (80-95); MPV 8.3 fL (8.0-11.0); Monocytes % 5.2; Platelet Count 324 10^3/uL (130-400); RBC 4.44 10^6/uL (3.93-5.22); RDW 12.2 % (11.7-14.6); RDW-SD 38.9 fL; WBC 9.25 10^3/uL (4.4-10.8)
[2023-09-19 12:03] LABS: Glucose,1 Hr (Glucola) 120 mg/dL (80-140)
[2023-09-19 12:15] LABS: ALT 17 U/L (14-59); AST 9 U/L (15-37); Albumin 3.4 g/dL (3.4-5.0); Alkaline Phosphatase 64 U/L (46-116); Anion Gap 7.7 mmol/L (3-11); BUN 6 mg/dL (7-18); Bilirubin, Total 0.4 mg/dL (0.2-1.0); CO2 28.3 mmol/L (21.0-32.0); CREATININE 0.6 mg/dL (0.55-1.02); Calcium 9.3 mg/dL (8.5-10.1); Chloride 103 mmol/L (98-107); Estimated GFR 122.99 (mL/min/1.73m2); Glucose 118 mg/dL (74-106); Potassium 3.6 mmol/L (3.5-5.1); Sodium 139 mmol/L (136-145); TSH (W/Ref FT4) 1.81 uIU/mL (0.36-3.74); Total Protein 7.6 g/dL (6.4-8.2)
[2023-09-19 18:31] LABS: Hepatitis B Surface Ag Negative (Negative)
[2023-09-19 19:02] LABS: Hepatitis C Ab w Rflx HCV PCR Negative (Negative)
[2023-09-19 19:05] LABS: HIV-1/2 Ag & Ab Screen Negative (Negative)
[2023-09-20 09:50] LABS: Varicella IgG Antibody Positive (See Note)
[2023-09-20 10:01] LABS: Rubella IgG Ab (UVM) Positive (See Note)
[2023-09-21 22:24] LABS: Syphilis IgG w/Reflex Nonreactive (Nonreactive)
== END 2023-09-19 05:03 | disposition home or self-care (01) ==
LOC: LBO 05:02
PROVIDERS: Advanced Practice Midwife; PCP Nurse Practitioner Family; Visit Provider Advanced Practice Midwife
DX: O09.291 Supervision of pregnancy with other poor reproductive or obstetric history, first trimester; Z3A.11 11 weeks gestation of pregnancy
CPT/HCPCS: 36415; 80053; 82950; 86787; 86803; 86850; 86900; 86901; 87340; 87389; 84443; 85025; 86762; 86780

== ENCOUNTER 2023-09-19 11:08 | Outpatient (REF) | payer BC, SELFPAY ==
--- NOTE | 2023-09-19 10:00 | PAPFT_PTH ---
PATIENT: Jeanette Moise LOC: [facility] U#:[id number] AGE/SX: 33/F ROOM: RE09/19/[address]: Lidia Cazares : 1990 BED: DIS: 09/19/2023 SPEC #: [id number] RECD: 09/19/23 18:18 STATUS: YELITZA REQ #: [id number] MICHAEL: 09/19/23 10:[address]: Lidia Cazares DEPT: [facility] Cytology RECD BY: Sandra Stuart ENTERED: 09/19/23 18:18 SP TYPE: PAPFT OTHR DR: Tita Fabian Tissues: 1 - CX/ENDOCX FOR PAP SMEARS Procedures: PAP THIN PREP/UVM Screening HPV DNA PROBE Comments: [id number]
[2023-09-20 13:21] LABS: Chlamydia Result Negative (Negative); GC Result Negative (Negative)
== END 2023-09-19 11:09 | disposition home or self-care (01) ==
LOC: LBN 11:08
PROVIDERS: PCP Nurse Practitioner Family; Visit Provider Advanced Practice Midwife
DX: Z34.91 Encounter for supervision of normal pregnancy, unspecified, first trimester (principal)
CPT/HCPCS: 87491; 87591; 88142; 87086; 87624

== ENCOUNTER 2023-12-26 16:21 | Outpatient (REF) | payer BC, SELFPAY ==
[2023-12-26 18:56] LABS: COMMENT (LAB VIEW ONLY) 165.26 mg/dL; PROTEIN 14.5 mg/dL; Prot/Crea Ur Ratio 0.08
== END 2023-12-26 16:22 | disposition home or self-care (01) ==
LOC: LBN 16:21
PROVIDERS: PCP Nurse Practitioner Family; Visit Provider Advanced Practice Midwife
DX: Z34.90 Encounter for supervision of normal pregnancy, unspecified, unspecified trimester (principal)
CPT/HCPCS: 82565; 84156

== ENCOUNTER 2024-02-01 01:48 | Outpatient (CLI) | payer BC, SELFPAY ==
--- OUTSIDE RECORDS SUMMARY | 2024-02-01 01:58 | XMS_ITS | Encounter Summary ---
[place] [address] Care Team Providers Care Social Services Manager Name Role Phone Tita Fabian Filiberto FUNG Primary Care Provider [phone] Reason for Referral * Consultation (Routine) - Authorized Specialty Diagnoses / Procedures Referred By Maksim t Referred To Contact Obstetrics and Gynecology Diagnoses Encounter for supervision of normal , antepartum, unspecified Personal history of other complications of , childbirth and the puerperium HX OF [facility] Lidia Cazares CNM [address] [place] [address] [address] [place] [address] [facility] [employer] [address] [address] Referral ID Status Reason Start Date Expiration Date Visits Requested Visits Authorized [id number] Authorized Consult, Test & Treat PCP Updated and/or Approved 09/18/2023 03/19/2024 6 6 Encounter Details Date Type Department Care Team (Latest Contact Info) Description 09/24/2023 Transcribe Orders eDH Incoming Referrals [phone] Lidia Cazares CNM [address] [place] [address] [address] [place], [place] [id number] Encounter for supervision of normal , antepartum, unspecified ; Personal history of other complications of , childbirth and the puerperium Social History Tobacco Use Types Packs/Day Years Used Date Smoking Tobacco: Never Assessed Sex and Gender Information Value Date Recorded Sex Assigned at Not on file Gender Identity Not on file Sexual Orientation Not on file documented as of this encounter Plan of Treatment Scheduled Referrals Name Type Priority Associated Diagnoses Orde r Schedule Referral to Maternal Medicine Outpatient Referral Routine Encounter for supervision of normal , antepartum, unspecified Personal history of other complications of , childbirth and the puerperium Ordered: 09/24/2023 documented as of this encounter Visit Diagnoses Diagnosis Encounter for supervision of normal , antepartum, unspecified Personal history of other complications of , childbirth and the puerperium documented in this encounter Care Teams Social Services Manager Relationship Specialty Start Date End Date Tita Fabian, [place] PCP - General Family Medicine 09/24/23 documented as of this encounter
--- OUTSIDE RECORDS SUMMARY | 2024-02-01 01:58 | XMS_ITS | Encounter Summary ---
Author Organization [facility] [place] [address] Care Team Providers Care Retirement Consultant Name Role Phone Russ Blount Primary Care Provider [phone] Encounter Details Date Type Department Care Team (Late st Contact Info) Description 01/04/2016 Orders Only [place] [address] Nelly Jones, [facility] [place] [address] Social History Tobacco Use Types Packs/Day Years Used Date Smoking Tobacco: Never Assessed Sex and Gender Information Value Date Recorded Sex Assigned at Not on file Gender Identity Not on file Sexual Orientation Not on file documented as of this encounter Plan of Treatment Not on file documented as of this encounter Procedures Procedure Name Priority Date/Time Associated Diagnosis Comments QUANTIFERON-TB GOLD Routine 01/04/2016 1 :51 PM EDT documented in this encounter Results * QuantiFERON-TB Gold (01/04/2016 1:51 PM EDT) Quantiferon-TB Gold Negative Negative [facility] Comment: Nil (IU/mL)=0.05 TB Ag minus Nil (IU/mL)=0.01 Mitogen minus Nil (IU/mL)=>10 M. tuberculosis (TB) infection NOT likely ?A negative specimen should have a TB Ag minus Nil value less than 0.35 IU/mL OR a TB Ag minus Nil greater than or equal to 0.35 IU/mL and in addition the TB Ag minus Nil value must be less than 25% of the Nil value. A negative specimen should have a Mitogen minus Nil value greater than or equal to 0.5 IU/mL. ?A negative QuantiFERON-TB Gold IT result does not preclude the possibility of M. tuberculosis infection or tuberculosis disease: false negative results can be due to stage of infection (e.g., specimen obtained prior to the development of cellular immune response), co-morbid conditions which affect immune function, or other individual immunological factors. ?The performance of the QuantiFERON-TB Gold IT test has not been extensively evaluated with specimens from the following groups of individuals: ?1. Individuals who have impaired or altered immune function such as those who have HIV infection or AIDS, those who have transplantation managed with immunosuppressive treatment or others who receive immunosuppressive drugs (e.g., corticosteroids, methotrexate, azathioprine, cancer chemotherapy), and those who have other clinical conditions: diabetes, silicosis, chronic renal failure, hematological disorders (e.g., leukemia and lymphomas), and other specific malignancies (e.g., carcinoma of the head or neck and lung). ?2. Individuals younger than age 17 years. ?3. women. Note: Diagnosing or excluding tuberculosis disease, and assessing the probability of LTBI, require a combination of epidemiological, historical, medical, and diagnostic findings that should be taken into account when interpreting QuantiFERON-TB Gold results. Reference (http://www.cdc.gov/nchstp/tb/) Blood specimen (specimen) Venous Draw / Unknown 01/04/2016 1:51 PM EDT 01/05/2016 8:04 AM EDT Narrative Resulting Agency Comment Spec In Lab Nelly Jones TRAVELING NURSE CHEMISTRY ORDERABLES [facility] [place] [address] documented in this encounter Visit Diagnoses Not on filedocumented in this encounter Care Teams Retirement Consultant Relationship Specialty Start Date End Date Rsus Blount [address] [place] [address] PCP - General General Internal Medicine 01/04/1612/20 documented as of this encounter
--- OUTSIDE RECORDS SUMMARY | 2024-02-01 01:58 | XMS_ITS | Encounter Summary ---
Author Organization [facility] Address [address] [place] [address] Care Team Providers Care [place] Supervisor Name Role Phone Unknown, Provider Primary Care Provider Encounter Details Date Type Department Care Team (Late st Contact Info) Description 11/04/2020 Lab Requisition [facility] Pathology & Laboratory Medicine - [facility] [address] [place] [address] Outr Resulting Lab, Provider Social History Tobacco Use Types Packs/Day Years Used Date Smoking Tobacco: Never Assessed Sex and Gender Information Value Date Recorded Sex Assigned at Not on file Gender Identity Not on file Sexual Orientation Not on file documented as of this encounter Plan of Treatment Not on file documented as of this encounter Procedures Procedure Name Priority Date/Time Associated Diagnosis Comments RUBELLA IGG ANTIBODY Routine 11/03/2020 14:36 EDT VARICELLA IGG ANTIBODY Routine 11/03/2020 14:36 EDT documented in this encounter Results * VARICELLA IGG ANTIBODY (11/03/2020 14:36 EDT) Varicella IgG Ab Positive See Note 11/05/2020 11:57 EDT [facility] Comment:Presence of detectab le Varicella Zoster virus IgG antibodies. Blood VENOUS BLOOD / Unknown 11/03/2020 14:36 EDT 11/04/2020 15:52 EDT Provider Outr Resulting Lab IMMUNOLOGY A ND SEROLOGY ORDERABLES [facility] [address] [place] [address] * RUBELLA IGG ANTIBODY (11/03/2020 14:36 EDT) Rubella IgG Ab Positive See Note 11/05/2020 12:02 EDT [facility] Comment:Positive for IgG ant ibodies to Rubella virus. Blood VENOUS BLOOD / Unknown 11/03/2020 14:36 EDT 11/04/2020 15:52 EDT Provider Outr Resulting Lab CHEMISTRY & BLOOD GAS ORDERABLES [facility] [address] [place] [address] documented in this encounter Visit Diagnoses Not on filedocumented in this encounter Care Teams [place] Supervisor Relationship Specialty Start Date End Date Unknown, Provider, PCP - General 04/25/15 documented as of this encounter
--- OUTSIDE RECORDS SUMMARY | 2024-02-01 01:58 | XMS_ITS | Encounter Summary ---
Author Organization [facility] Address [address] [place] [address] Care Team Providers Care Truck Manager Name Role Phone Unknown, Provider Primary Care Provider Encounter Details Date Type Department Care Team (Late st Contact Info) Description 09/20/2023 Lab Requisition [facility] Pathology & Laboratory Medicine - [facility] [address] [place] [address] [place] [address] Encounter for supervision of normal , unspecified, unspecified trimester Social History Tobacco Use Types Packs/Day Years Used Date Smoking Tobacco: Never Assessed Sex and Gender Information Value Date Recorded Sex Assigned at Not on file Gender Identity Not on file Sexual Orientation Not on file documented as of this encounter Plan of Treatment Not on file documented as of this encounter Procedures Procedure Name Priority Date/Time Associated Diagnosis Comments PAP TEST Today 09/19/2023 10:00 EDT Encounter for supervision of normal , unspecified, unspecified trimester HPV DNA DETECTION WITH GENOTYPING, PCR Today 09/19/2023 10:00 EDT Encounter for supervision of normal , unspecified, unspecified trimester documented in this encounter Results * HUMAN PAPILLOMAVIRUS (HPV) DETECTION-HIGH RISK TYPES (09/19/2023 10:00 EDT) HPV other High Risk types, PCR Negative Negative 09/25/2023 19:47 EDT [facility] Comment:No E6 or E7 mRNA is detected from HPV types 16,18,31,33,35,39,45,51,52,56,58,59,66, and 68 by design engineer mediated amplification. Pap Test CERVIX UTERI STRUCTURE / Unknown 09/19/2023 10:00 EDT 09/25/2023 12:40 EDT Lidia Mary Debora [facility] - GENERAL ORDERABLES [facility] [address] [place], [place] [id number] * PAP TEST (09/19/2023 10:00 EDT) Specimens A. Cervix and/or Endocervix , ThinPrep Imaging System with Manual Evaluation 09/25/2023 19:47 EDT [facility] Specimen Adequacy Satisfactory for Evaluation - transformation zone component absent 09/25/2023 19:47 EDT [facility] General Categorization Negative for intraepithelial lesion or malignancy 09/25/2023 19:47 T [facility] Attestation . 09/25/2023 19:47 T [facility] at 1947 Clinical History See below 09/25/19 19:47 T [facility] HPV The result for the Human Papillomavirus (HPV) Detection-High Risk Types is Negative. No E6 or E7 mRNA is detected from HPV types 16,18,31,33,35,39 ,45,51,52,56,58,5 9,66, and 68 by design engineer mediated amplification.Shazia ting was performed on specimen [id number] and was resulted on 09/25/2023 1947 EDT by GERARDO, LAB INSTRUMENT RESULTS IN 09/25/2023 19:47 EDT [facility] Performing Lab [facility] 09/25/2023 19:47 EDT [facility] Scanned Images 09/25/2023 19:47 EDT [facility] Pap Test CERVIX UTERI STRUCTURE / Unknown 09/19/2023 10:00 EDT 09/20/2023 12:11 EDT Lidia Thakkar Debora [facility] DAYANA STARKS [facility] [address] [place] [address] documented in this encounter Visit Diagnoses Diagnosis Encounter for supervision of normal , unspecified, unspecified trimester documented in this encounter Care Teams Truck Manager Relationship Specialty Start Date End Date Unknown, Provider, PCP - General 04/25/15 documented as of this encounter
--- OUTSIDE RECORDS SUMMARY | 2024-02-01 01:58 | XMS_ITS | Encounter Summary ---
Author Organization [facility] Address [address] [place] [address] Care Team Providers Care Tire Wrapper Name Role Phone Unknown, Provider Primary Care Provider Encounter Details Date Type Department Care Team (Late st Contact Info) Description 09/19/2023 Lab Requisition [facility] Pathology & Laboratory Medicine - [facility] [address] [place] [address] Outr Resulting Lab, Provider Social History Tobacco [...] Associated Diagnosis Comments RUBELLA IGG ANTIBODY Routine 09/19/2023 11:05 EDT VARICELLA IGG ANTIBODY Routine 09/19/2023 11:05 EDT documented in this encounter Results * VARICELLA IGG ANTIBODY (09/19/2023 11:05 EDT) Varicella IgG Ab Positive See Note 09/20/2023 9:45 EDT [facility] Comment:Presence of detectab le Varicella Zoster virus IgG antibodies. Blood VENOUS BLOOD / Unknown 09/19/2023 11:05 EDT 09/19/2023 16:56 EDT Provider Outr Resulting Lab IMMUNOLOGY A ND SEROLOGY ORDERABLES [facility] [address] [place], [place] [id number] * RUBELLA IGG ANTIBODY (09/19/2023 11:05 EDT) Rubella IgG Ab Positive See Note 09/20/2023 9:56 EDT [facility] Comment:Positive for IgG ant ibodies to Rubella virus. Blood VENOUS BLOOD / Unknown 09/19/2023 11:05 EDT 09/19/2023 16:56 EDT Provider Outr Resulting Lab CHEMISTRY & BLOOD GAS ORDERABLES [facility] [address] [place] [address] documented in this encounter Visit Diagnoses Not on filedocumented in this encounter Care Teams Tire Wrapper Relationship Specialty Start Date End Date Unknown, Provider, PCP - General 04/25/15 documented as of this encounter
--- OUTSIDE RECORDS SUMMARY | 2024-02-01 01:58 | XMS_ITS | Encounter Summary ---
Author Organization [facility] Address [address] [place] [address] Care Team Providers Care Back Filler Operator Name Role Phone Unknown, Provider Primary Care Provider Encounter Details Date Type Department Care Team (Late st Contact Info) Description 01/04/2021 Lab Requisition [facility] Pathology & Laboratory Medicine - [facility] [address] [place] [address] Outr Resulting Lab, Provider Social History Tobacco [...] Procedure Name Priority Date/Time Associated Diagnosis Comments HEPATITIS B SURFACE ANTIBODY Routine 01/04/2021 12:13 EDT documented in this encounter Results * HEPATITIS B SURFACE ANTIBODY (01/04/2021 12:13 EDT) Hep B Surface Ab, Quantitative 59.8 See Note mIU/mL 01/05/2021 9:44 EDT [facility] Comment: Reference Range for Hep B Surface Ab, Quant: Positive: >= 10.0 mIU/mL Negative: ??< 10.0 mIU/mL Patient is presumed to be immune to infection with Hepatitis B Virus. Hep B Surface Ab, Qualitative Positive See Note 01/05/2021 9:44 EDT [facility] Comment: Reference Range for Hep B Surface Ab, Qual: Unvaccinated: ??Negative Vaccinated: ??Positive Blood VENOUS BLOOD / Unknown 01/04/2021 12:13 EDT 01/04/2021 21:18 EDT Provider Outr Resulting Lab CHEMISTRY & BLOOD GAS ORDERABLES [facility] [address] [place] [address] documented in this encounter Visit Diagnoses Not on filedocumented in this encounter Care Teams Back Filler Operator Relationship Specialty Start Date End Date Unknown, Provider, PCP - General 04/25/15 documented as of this encounter
--- OUTSIDE RECORDS SUMMARY | 2024-02-01 01:58 | XMS_ITS | Encounter Summary ---
Author Organization Formerly [facility] [place] [address] Care Team Providers Care [employer] Vice Principal Name Role Phone YusufTita aquino Filiberto FUNG Primary Care Provider [phone] Reason for Visit * Consultation (Routine) - Authorized Specialty Diagnoses / Procedures Referred By Maksim t Referred To Contact Obstetrics and Gynecology Diagnoses Encounter for supervision of normal , antepartum, unspecified Personal history of other complications of , childbirth and the puerperium HX OF PLACENTA ACCRETA Lidia Cazares, [address] [address] [facility] Credit Card Analyst [address] [place] [address] Referral ID Status Reason Start Date Expiration Date Visits Requested Visits Authorized [id number] Authorized Consult, Test & Treat PCP Updated and/or Approved 09/18/2023 03/19/2024 6 6 Encounter Details Date Type Department Care Team (Late st Contact Info) Description 11/21/2023 11:00 AM EDT Office Visit Obstetrics [place] [address] Jazmine Berman MD [facility] [address] [place]ST[place] [address] Placental problem suspected but not found; Hx of preeclampsia, prior , currently , second trimester Social History Tobacco Use Types Packs/Day Years Used Date Smoking Tobacco: Never Assessed Estimated Date of Delivery Comme nts Yes 04/09/2024 Sex and Gender Information Value Date Recorded Sex Assigned at Not on file Gender Identity Not on file Sexual Orientation Not on file documented as of this encounter Last Filed Vital Signs Vital Sign Reading Time Taken Comments Blood Pressure 135/61 11/21/2023 12:47 PM EDT Pulse 66 11/21/2023 12:47 PM EDT Temperature 35.9 ??C (96.7 ??F) 11/21/2023 12:47 PM E DT Respiratory Rate 16 11/21/2023 12:47 PM EDT Oxygen Saturation 99% 11/21/2023 12:47 PM EDT Inhaled Oxygen Concentration - - Weight 97.2 kg (214 lb 4.8 oz) 11/21/2023 12:47 PM EDT Height - - Body Mass Index - - documented in this encounter Progress Notes * Jazmine Berman MD - 11/21/2023 11:00 AM EDT Maternal Medicine Consult Note Jeanette Moise is a 33 y.o. who is at 20w0d gestation by menstrual and ultrasound dates. Sheis seen in consultation at the request of Lidia Cazares CNM for evaluation of prior notable for pathology evaluation of placenta consistent with placenta accreta spectrum. She was seen today for maternal- medicine consultation and ultrasound evaluation. The has been uncomplicated to date. She reports having had low risk cell free DNA testing. She had a previous uncomplicated spontaneous vaginal delivery of twins at 36 weeks without hemorrhage. The wascomplicated by preeclampsia without severe features and by gestational diabetes. Her recollection is that the placenta was posterior. Record Review No additional issues Past Medical History: Diagnosis Date Anemia Depression with anxiety Hypothyroidism Preeclampsia Past Surgical History: Procedure Laterality Date APPENDECTOMY OB History Para Term AB Living 2 1 0 1 0 2 SAB IAB Ectopic Multiple Live Births 0 0 0 1 2 # Outcome Date GA Lbr Winston/2nd Weight Sex Type Anes PTL Lv 2 Current 1A 2020 36w0d M Vag-Spont N CASSANDRA Complications: Preeclampsia 1B M Vag-Spont CASSANDRA Complications: Preeclampsia A family history was obtained. There is a history of nonsyndromic epilepsy on the father's side. There is no other history of structural abnormalities, inheritable disease, learning disability,intellectual disability, epilepsy, or repetitive loss. Her mother and sisters did not have hypertension during . No family history of early life DVT/PE or thrombophilia. Social: Is employed Denies illicit substance use or alcohol Denies tobacco use aspirin, citalopram, levothyroxine, ondansetron, and vitamin 27 & [id number] Current Outpatient Medications Medication Sig Dispense Refill ondansetron (Zofran) 4 mg tablet Take 4 mg by mouth every 8 hours as needed for Nausea. aspirin 81 mg chewable tablet Take 81 mg by mouth daily. citalopram (CeleXA) 20 mg tablet Take 20 mg by mouth daily. vitamin 27 & papdcnk-phon-TS 60 mg iron-1 mg Tablet Take 1 tablet by mouth daily. levothyroxine (Synthroid) 150 mcg tablet Take 150 mcg by mouth daily. No current facility-administered medications for this visit. Not on File Review of Systems Contractions: none Leaking: none Bleeding: none Ultrasound 2nd Trimester - Detailed Morphology - Summary Single intrauterine with a gestational age of 20w 0d based on LMP and Early Ultrasound Composite age based on the current ultrasound alone is 21w 0d. Current growth parameters are consistent with prior dating indicating normal growth. Amniotic fluid volume is subjectively normal for gestational age Transvaginal ultrasound done for placenta location due to history of accreta. Placenta is more [id number] away from the internal cervical os. No evidence of accreta spectrum. Detailed anatomic evaluation was performed and no structural abnormalities are noted. Physical Exam 11/21/2023 Vitals BP 135/61 Heart Rate 66 Temp 35.9 ??C (96.7 ??F) Resp 16 Weight (Comoran) 214 lbs 5 oz Weight (Metric) 97.2 kg SpO2 99 % General: alert, well appearing, in no apparent distress HEENT: normocephalic, atraumatic Extremities: normal Neurologic:alert, oriented, normal speech Abdomen: abdomen is soft without significant tenderness Psychiatric: affect is appropriate. Uterine Size: consistent with dates Assessment and Recommendations: 33 y.o. at 20w0d weeks gestation. 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 There is certainly a possibility of an overcall by pathology. She clearly did not have a morbidly adherent placenta. She has no otherrisk factors this . If the prior placenta(s) was posterior, even that risk factor would beexcluded. The ultrasound today demonstrated no evidence for placenta accreta spectrum. She does notneed [place] [facility] It would be prudent to do an ultrasound in the third trimester to reevaluate the placenta. It could be done locally or here at the discretion of the referring providers. History of preeclampsia. She is already taking low dose aspirin. I appreciate the opportunity to be involved in this patient's care and am available if further questions should arise. Jazmine Berman MD 11/21/2023 Cc: Lidia Cazares, [address] [place] [address] documented in this encounter Plan of Treatment Not on file documented as of this encounter Visit Diagnoses Diagnosis Placental problem suspected but not found Suspected placental problem not found Hx of preeclampsia, prior , currently , second trimester documented in this encounter Care Teams High School Vice Principal Relationship Specialty Start Date End Date Tita Fabian, [place] PCP - General Family Medicine 09/24/23 documented as of this encounter
--- OUTSIDE RECORDS SUMMARY | 2024-02-01 01:58 | XMS_ITS | Encounter Summary ---
Author Organization [facility] Address [address] [place] [id number] Care Team Providers Care Window Framer Name Role Phone Unknown, Provider Primary Care Provider [phone] Encounter Details Date Type Department Care Team (Late st Contact Info) Description 09/19/2023 Lab Requisition [facility] Pathology & Laboratory Medicine - [facility] [address] [place], [place] [address] Outr Resulting Lab, Provider Social History Tobacco [...] Procedure Name Priority Date/Time Associated Diagnosis Comments CHLAMYDIA/N. GONORRHOEAE AMPLIFIED NUCLEIC ACID Routine 09/19/2023 10:00 EDT documented in this encounter Results * CHLAMYDIA/N. GONORRHOEAE AMPLIFIED RNA (09/19/2023 10:00 EDT) Neisseria gonorrhoeae Result Negative Negative 09/20/2023 13:15 EDT [facility] Chlamydia trachomatis Result Negative Negative 09/20/2023 13:15 EDT [facility] Swab ENDOCERVICAL STRUCTURE / Unknown 09/19/2023 10:00 EDT 09/19/2023 22:01 EDT Provider Outr Resulting Lab MICROBIOLOGY - GENERAL ORDERABLES [facility] [address] [place], [place] [address] documented in this encounter Visit Diagnoses Not on filedocumented in this encounter Care Teams Window Framer Relationship Specialty Start Date End Date Unknown, Provider, PCP - General 04/25/15 documented as of this encounter
--- OUTSIDE RECORDS SUMMARY | 2024-02-01 01:58 | XMS_ITS | Encounter Summary ---
Author Organization [facility] Address [address] [place] [address] Care Team Providers Care Certified Caregiver Name Role Phone Unknown, Provider Primary Care Provider Encounter Details Date Type Department Care Team (Late st Contact Info) Description 04/27/2021 Lab Requisition [facility] Pathology & Laboratory Medicine - [facility] [address] [place] [address] Outr Resulting Lab, Provider Social History Tobacco [...] Procedure Name Priority Date/Time Associated Diagnosis Comments ZZCOVID-19 TEST [facility] PCR Today 04/27/2021 2:19 EST COVID-19 TESTING Routine 04/27/2021 2:19 EST documented in this encounter Results * COVID-19 TEST [facility] PCR (04/27/2021 2:19 EST) Swab 04/27/2021 2:19 EST 04/27/2021 17:15 EST Provider Outr Resulting Lab MICROBIOLOGY - GENERAL ORDERABLES [facility] [address] [place] [address] * COVID-19 TESTING (04/27/2021 2:19 EST) COVID-19 rt-PCR Result Negative Negative 04/27/2021 20:42 EST [facility] Comment: This test has not been FDA cleared or approved. This test has been authorized by FDA under an EUA for use by authorized laboratories. This test has been authorized only for detection of nucleic acid from 2019-nCoV, not for any other viruses or pathogens. This test is only authorized for the duration of the declaration that circumstances exist justifying the authorization of emergency use of in vitro diagnostic tests for detection and/or diagnosis of 2019-nCoV under section 564(b)(1) of Act, 21 U.S.C ?? 360bbb-3(b) (1), unless the authorization is terminated or revoked sooner. Negative results do not preclude 2019-nCoV infection and should not be used as the sole basis for treatment or other patient management decisions. Negative results must be combined with clinical observations, patient history, and epidemiological information. Performed on the NovoPedics Fusion instrument Performing Lab [place] [facility] 04/27/2021 20:42 EST [facility] Swab 04/27/2021 2:19 EST 04/27/2021 17:15 EST Provider Outr Resulting Lab MICROBIOLOGY - GENERAL ORDERABLES [facility] [address] [place] [address] documented in this encounter Visit Diagnoses Not on filedocumented in this encounter Care Teams Certified Caregiver Relationship Specialty Start Date End Date Unknown, Provider, PCP - General 04/25/15 documented as of this encounter
--- OUTSIDE RECORDS SUMMARY | 2024-02-01 01:58 | XMS_ITS | Clinical Summary ---
Author Organization [facility] Address [facility] [place] [address] Care Team Providers Care Air Conditioning Installer Supervisor Name Role Phone Tita Fabian APRN Primary Care Provider [phone] Allergies No known active allergies Medications Medication Sig Dispensed Refills Start Date End Date Status ondansetron (Zofran) 4 mg tablet Take 4 mg by mouth every 8 hours as needed for Nausea. Active aspirin 81 mg chewable tablet Take 81 mg by mouth daily. Active citalopram (CeleXA) 20 mg tablet Take 20 mg by mouth daily. Active vitamin 27 & lhrvrne-mmwt-ER 60 mg iron-1 mg Tablet Take 1 tablet by mouth daily. Active levothyroxine (Synthroid) 150 mcg tablet Take 150 mcg by mouth daily. Active Encounters Date Type Department Care Team Description 11/21/2023 11:00 AM EDT Office Visit [place]st[place] [address] Jazmine Berman MD Placental problem suspected but not found; Hx of preeclampsia, prior , currently , second trimester 11/21/2023 10:00 AM EDT - 11/21/2023 11:59 PM EDT [place] [address] Erasmo Cazares CNM Personal history of trophoblastic disease Discharge Disposition: Home 11/21/2023 Travel from Last 3 Months Immunizations Name Administration Dates Next Due Influenza PF, Split 04/14/2016 Social History Tobacco Use Types Packs/Day Years Used Date Smoking Tobacco: Never Assessed Estimated Date of Delivery Comme nts Yes 04/09/2024 Sex and Gender Information Value Date Recorded Sex Assigned at Not on file Gender Identity Not on file Sexual Orientation Not on file Last Filed Vital Signs Vital Sign Reading [...] - - Body Mass Index - - Plan of Treatment Health Maintenance Due Date Last Done Comments HIV screen 2010 Hepatitis C Screening 2010 Hepatitis B vaccine (0-59 yrs) (1) 2011 Tdap adult 2011 Tetanus vaccine 2011 HPV test 2022 PAP Smear 2022 Covid-19 Vaccine ( - 24 season) 2023 Influenza (Flu) vaccine (1 o f 1 - Influenza standard series) 02/17/2024 04/14/2016 Procedures Procedure Name Priority Date/Time Associated Diagnosis Comments US OB DETAILED MORPHOLOGY Routine 11/21/2023 10:56 AM EDT Personal history of trophoblastic disease from Last 3 Months Results * US OB Detailed Morphology (11/21/2023 10:56 AM EDT) WORKSTATION ID [id number] DH RAD Anatomical Region Laterality Modality Pelvis, Abdomen Ultrasound 11/21/2023 10:1 0 AM EDT Impressions 11/21/2023 11:37 AM EDT 2nd Trimester - Detailed Morphology - Summary [...] to history of accreta. Placenta is more than 2cm away from the internal cervical os. No evidence of accreta spectrum. Detailed anatomic evaluation was performed and no structural abnormalities are noted. Thank you for letting us participate in the care of this patient. If you are a health care provider and have any questions regarding this report, please contact the number above. For patients who have questions, please contact the health skin care therapist that requested your imaging first. ?Jazmine Berman, Staff Physician Electronically Signed Corrected Final Report ??11/21/2023 02:55 pm Narrative 11/21/2023 11:37 AM EDT OBSTETRICS REPORT ? (Corrected Final 11/21/2023 02:55 pm) PATIENT INFO: ID #: ? [id number] ?: ??[birth year] (33 yrs)(F) Name: ? JEANETTE MOISE ?Visit Date: 11/21/2023 10:10 am PERFORMED BY: Performed By: ? Riana Potts RDMS Attending: ?Cullen BUTLER, Jazmine Benavidez Referred By: ?ERASMO CAZARES Location: ? [place] SERVICE(S) PROVIDED: [facility] - Detailed Morphology - [id number] ? [id number] UOBTVCER - Transvaginal ??2nd Trimester - ?13314 Cervical Length - [id number] INDICATIONS: 20 weeks gestation of ?Z3A.20 HISTORY OF ACCERTA AND SPECTRUM TECHNIQUE/SCAN QUALITY: Technique: ?? Transducer ID#:[id number] VITAL SIGNS: Weight (lb): 216.0 Height: ?5'9 ? BMI: ? 31.89 EVALUATION: Num Of Fetuses: ? 1 Heart Rate(bpm): ??136 Cardiac Activity: ? Observed, normal rhythm Presentation: ? Breech Placenta: ? Anterior no previa P. Cord Insertion: ?Within Normal Limits Amniotic Fluid AUDRA FV: ?Subjectively normal for gestational age --------- BIOMETRY: --------- BPD: ?49.4 ??mm ? G.Age: ?? 21w 0d OFD: ?66.5 ??mm HC: ?186.1 ??mm ? G.Age: ?? 21w 0d AC: ?160.0 ??mm ? G.Age: ?? 21w 1d FL: ? 34.5 ??mm ? G.Age: ?? 20w 6d HUM: ?32.9 ??mm ? G.Age: ?? 21w 0d CER: ?21.3 ??mm ? G.Age: ?? 20w 2d NFT: ?4.45 ??mm NB: ?4.7 ??mm LV: ?5.2 ??mm CM: ?5.9 ??mm CI: ?74.3 ??% ? 70 - 86 FL/HC: ? 18.5 ??% ? 16.8 - 19.8 HC/AC: ? 1.16 ?1.09 - 1.39 FL/BPD: ?69.8 ??% FL/AC: ? 21.6 ??% ? - Est. FW: ? 391 ??gm ?0 lb 14 oz OB HISTORY: : ?2 Living: ? 1 GESTATIONAL AGE: LMP: ? 20w 0d ?Date: ??07/04/23 ? MESERET: ?? 04/09/24 U/S Today: ? 21w 0d ?MESERET: ?? 04/02/24 Best: ?20w 0d ?? Det. By: ??LMP ??(07/04/23) ?MESERET: ?? 04/09/24 TARGETED ANATOMY: Central Nervous System Calvarium/Cranial V.: ??Within Normal Limits Intracranial Pastora: ? Within Normal Limits Cavum: ? Within Normal Limits Parenchyma: ?Within Normal Limits Lateral Ventricles: ?Within Normal Limits Choroid Plexus: ?Within Normal Limits Cereb./Vermis: ? Within Normal Limits Cisterna Magna: ?Within Normal Limits Midline Falx: ?Within Normal Limits Spine Cervical: ?Visualized Thoracic: ?Visualized Lumbar: ?Visualized Sacral: ?Visualized Shape/Curvature: ? Visualized Head/Neck Face: ?Within Normal Limits Lips: ?Within Normal Limits Neck: ?Within Normal Limits Nuchal Fold: ? Within Normal Limits Nasal Bone: ?Present Profile: ? Visualized Orbits/Eyes: ? Visualized Mandible: ?Visualized Maxilla: ? Visualized Thorax Thoracic Contour: ?Within Normal Limits Lungs: ? Visualized 4 Chamber View: ?Within Normal Limits Cardiac Activity: ?Normal Rhythm Rt Outflow Tract: ?Visualized Lt Outflow Tract: ?Visualized Aortic Arch: ? Visualized Ductal Arch: ? Visualized SVC: ? Visualized Cardiac [place]: ?Visualized Diaphragm: ? Visualized 3 Vessel View: ? Visualized 3 V Trachea View: ?Visualized IVC: ? Visualized Crossing: ?Visualized Abdomen Ventral Wall: ?Visualized Cord Insertion: ?Visualized Situs: ? Normal Stomach: ? Visualized Liver: ? Visualized Lt Kidney: ? Visualized Rt Kidney: ? Visualized Bladder: ? Visualized Bowel: ? Visualized Extremities Lt Humerus: ?Within Nomal Limits Rt Humerus: ?Within Normal Limits Lt Forearm: ?Within Normal Limits Rt Forearm: ?Within Normal Limits Lt Hand: ? Within Normal Limits Rt Hand: ? Within Normal Limits Lt Femur: ?Within Normal Limits Rt Femur: ?Within Normal Limits Lt Lower Leg: ?Within Normal Limits Rt Lower Leg: ?Within Normal Limits Lt Foot: ? Visualized Rt Foot: ? Visualized Other Umbilical Cord: ?3 vessel cord Genitalia: ? Female CERVIX UTERUS ADNEXA: Right Ovary Not visualized Left Ovary Not visualized Procedure Note Jazmine Berman MD - 11/21/2023 OBSTETRICS REPORT (Corrected Final 11/21/2023 02:55 pm) PATIENT INFO: ID #: [id number] : [birth year] (33 yrs)(F) Name: JEANETTE MOISE Visit Date: 11/21/2023 10:10 am PERFORMED BY: Performed By: Riana Potts RDMS Attending: Jazmine Berman MD Referred By: ERASMO CAZARES Location: [place] SERVICE(S) PROVIDED: [facility] - Detailed Morphology - [id number] UOBTVCER - Transvaginal 2nd Trimester - 88232 Cervical Length - [id number] INDICATIONS: 20 weeks gestation of Z3A.20 HISTORY OF ACCERTA AND SPECTRUM TECHNIQUE/SCAN QUALITY: Technique: Transducer ID#:[id number] VITAL SIGNS: Weight (lb): 216.0 Height: 5'9 BMI: 31.89 EVALUATION: Num Of Fetuses: 1 Heart Rate(bpm): 136 Cardiac Activity: Observed, normal rhythm Presentation: Breech Placenta: Anterior no previa P. Cord Insertion: Within Normal Limits Amniotic Fluid AUDRA FV: Subjectively normal for gestational age --------- BIOMETRY: --------- BPD: 49.4 mm G.Age: 21w 0d OFD: 66.5 mm HC: 186.1 mm G.Age: 21w 0d AC: 160.0 mm G.Age: 21w 1d FL: 34.5 mm G.Age: 20w 6d HUM: 32.9 mm G.Age: 21w 0d CER: 21.3 mm G.Age: 20w 2d NFT: 4.45 mm NB: 4.7 mm LV: 5.2 mm CM: 5.9 mm CI: 74.3 % 70 - 86 FL/HC: 18.5 % 16.8 - 19.8 HC/AC: 1.16 1.09 - 1.39 FL/BPD: 69.8 % FL/AC: 21.6 % 20 - 24 Est. FW: 391 gm 0 lb 14 oz OB HISTORY: : 2 [place] GESTATIONAL AGE: LMP: 20w 0d Date: 07/04/23 MESERET: 04/09/24 U/S Today: 21w 0d MESERET: 04/02/24 Best: 20w 0d Det. By: LMP (07/04/23) MESERET: 04/09/24 TARGETED ANATOMY: Central Nervous System Calvarium/Cranial V.: Within Normal Limits Intracranial [place]ora: Within Normal Limits Cavum: Within Normal Limits Parenchyma: Within Normal Limits Lateral Ventricles: Within Normal Limits Choroid Plexus: Within Normal Limits Cereb./Vermis: Within Normal Limits Cisterna Magna: Within Normal Limits Midline Falx: Within Normal Limits Spine Cervical: Visualized Thoracic: Visualized Lumbar: Visualized Sacral: Visualized Shape/Curvature: Visualized Head/Neck Face: Within Normal Limits Lips: Within Normal Limits Neck: Within Normal Limits Nuchal Fold: Within Normal Limits Nasal Bone: Present Profile: Visualized Orbits/Eyes: Visualized Mandible: Visualized Maxilla: Visualized Thorax Thoracic Contour: Within Normal Limits Lungs: Visualized 4 Chamber View: Within Normal Limits Cardiac Activity: Normal Rhythm Rt Outflow Tract: Visualized Lt Outflow Tract: Visualized Aortic Arch: Visualized Ductal Arch: Visualized SVC: Visualized Cardiac [place]: Visualized Diaphragm: Visualized 3 Vessel View: Visualized 3 V Trachea View: Visualized IVC: Visualized Crossing: Visualized Abdomen Ventral Wall: Visualized Cord Insertion: Visualized Situs: Normal Stomach: Visualized Liver: Visualized Lt Kidney: Visualized Rt Kidney: Visualized Bladder: Visualized Bowel: Visualized Extremities Lt Humerus: Within Nomal Limits Rt Humerus: Within Normal Limits Lt Forearm: Within Normal Limits Rt Forearm: Within Normal Limits Lt Hand: Within Normal Limits Rt Hand: Within Normal Limits Lt Femur: Within Normal Limits Rt Femur: Within Normal Limits Lt Lower Leg: Within Normal Limits Rt Lower Leg: Within Normal Limits Lt Foot: Visualized Rt Foot: Visualized Other Umbilical Cord: 3 vessel cord Genitalia: Female CERVIX UTERUS ADNEXA: Right Ovary Not visualized Left Ovary Not visualized IMPRESSION 2nd Trimester - Detailed Morphology - Summary [...] to history of accreta. Placenta is more than 2cm away from the internal cervical os. No evidence of accreta spectrum. Detailed anatomic evaluation was performed and no structural abnormalities are noted. Thank you for letting us participate in the care of this patient. If you are a health care provider and have any questions regarding this report, please contact the number above. For patients who have questions, please contact the health skin care therapist that requested your imaging first. Jazmine Berman, Staff Physician Electronically Signed Corrected Final Report 11/21/2023 02:55 pm Erasmo Cazares CNM IMG US OB ORDERABLE S from Last 3 Months Care Teams Air Conditioning Installer Supervisor Relationship Specialty Start Date End Date Tita Fabian APRN PCP - General Family Medicine 09/24/23
--- OUTSIDE RECORDS SUMMARY | 2024-02-01 01:58 | XMS_ITS | Referral Summary ---
Author Organization [facility] Address [address] [place] [address] Care Team Providers Care Hyperbaric Technician Name Role Phone Unknown, Provider Primary Care Provider [phone] Social History Tobacco Use Types Packs/Day Years Used Date Smoking Tobacco: Never Assessed Sex and Gender Information Value Date Recorded Sex Assigned at Not on file Gender Identity Not on file Sexual Orientation Not on file Plan of Treatment Not on file Procedures Procedure Name Priority Date/Time Associated Diagnosis Comments HEPATITIS C AB W REFLEX TO HCV RNA BY PCR Routine 09/19/2023 11:05 EDT from Last 3 Months or Most Recently Relevant to Health Maintenance Results * HEPATITIS C AB W REFLEX TO HCV RNA BY PCR (09/19/2023 11:05 EDT) Hep C Antibody Negative Negative 09/19/2023 18:56 EDT [facility] Blood VENOUS BLOOD / Unknown 09/19/2023 11:05 EDT 09/19/2023 16:56 EDT Provider Outr Resulting Lab CHEMISTRY & BLOOD GAS ORDERABLES [facility] [address] [place] [address] from Last 3 Months or Most Recently Relevant to Health Maintenance Care Teams Hyperbaric Technician Relationship Specialty Start Date End Date Unknown, Provider, PCP - General 04/25/15
--- OUTSIDE RECORDS SUMMARY | 2024-02-01 01:58 | XMS_ITS | Clinical Summary ---
Author Organization [facility] Address [address] [place] [address] Care Team Providers Care Registered Public Health Nurse Name Role Phone Unknown, Provider Primary Care Provider Social History Tobacco Use Types Packs/Day Years Used Date Smoking Tobacco: Never Assessed Sex and Gender Information Value Date Recorded Sex Assigned at Not on file Gender Identity Not on file Sexual Orientation Not on file Plan of Treatment Health Maintenance Due Date Last Done Comments Hepatitis B Vaccine (1 of 3 - 19+ 3-dose series) 2011 COVID-19 Vaccine (2022- season) 2023 Hepatitis C Screen Completed 09/19/2023, 11/03/2020 Procedures Procedure Name Priority Date/Time Associated Diagnosis Comments HEPATITIS C AB W REFLEX TO HCV RNA BY PCR Routine 09/19/2023 11:05 EDT from Last 3 Months or Most Recently Relevant to Health Maintenance Results * HEPATITIS C AB W REFLEX TO HCV RNA BY PCR (09/19/2023 11:05 EDT) Hep C Antibody Negative Negative 09/19/2023 18:56 EDT [facility] Blood VENOUS BLOOD / Unknown 09/19/2023 11:05 EDT 09/19/2023 16:56 EDT Provider Outr Resulting Lab CHEMISTRY & BLOOD GAS ORDERABLES [facility] [address] [place], [place] [address] from Last 3 Months or Most Recently Relevant to Health Maintenance Care Teams Registered Public Health Nurse Relationship Specialty Start Date End Date Unknown, Provider, PCP - General 04/25/15
--- OUTSIDE RECORDS SUMMARY | 2024-02-01 01:58 | XMS_ITS | Encounter Summary ---
Author Organization [facility] Address [address] [place] [address] Care Team Providers Care House Moving Supervisor Name Role Phone Unknown, Provider Primary Care Provider Encounter Details Date Type Department Care Team (Late st Contact Info) Description 01/05/2021 Lab Requisition [facility] Pathology & Laboratory Medicine - [address] [address] Outr Resulting Lab, Provider Social History Tobacco [...] Procedure Name Priority Date/Time Associated Diagnosis Comments QUANTIFERON TB GOLD PLUS Routine 01/04/2021 12:13 EDT documented in this encounter Results * QUANTIFERON TB GOLD PLUS (01/04/2021 12:13 EDT) Quantiferon Interpretation Negative Negative 01/07/2021 12:42 EDT [facility] Comment: No interferon-gamma response to M. tuberculosis antigens was detected. ??Infection with M. tuberculosis is unlikely. A single negative result does not exclude infection with M. tuberculosis. ??In patients at high risk for M. tuberculosis infection, a second test should be considered in accordance with the 2017 ATS/IDSA/CDC Clinical Practice Guidelines for Diagnosis of Tuberculosis in Adults and Children. [Ct MOY et. al. Clin. Infect. Dis. 2017:64 (2) ??: 111-115]. Results were obtained with the Qiagen QuantiFERON TB Gold Plus RON. TB1 Ag minus Nil 0.00 IU/ml 01/08/20 12:42 EDT [facility] TB2 Ag minus Nil 0.00 IU/mL 01/08/20 12:42 EDT [facility] Blood VENOUS BLOOD / Unknown 01/04/2021 12:13 EDT 01/05/2021 16:37 EDT Narrative [facility] - 01/07/2021 12:42 EDT Results were obtained with the Qiagen QuantiFERON-TB Gold Plus RON. Provider Outr Resulting Lab CHEMISTRY & BLOOD GAS ORDERABLES [facility] [address] [place] [address] documented in this encounter Visit Diagnoses Not on filedocumented in this encounter Care Teams House Moving Supervisor Relationship Specialty Start Date End Date Unknown, Provider, PCP - General 04/25/15 documented as of this encounter
--- OUTSIDE RECORDS SUMMARY | 2024-02-01 01:58 | XMS_ITS | Encounter Summary ---
Author Organization [facility] Address [address] [place] [address] Care Team Providers Care Roving Sizer Name Role Phone Unknown, Provider Primary Care Provider Encounter Details Date Type Department Care Team (Late st Contact Info) Description 03/10/2022 Lab Requisition [facility] Pathology & Laboratory Medicine - [facility] [address] [place] [address] Outr Resulting Lab, Provider Social History Tobacco [...] Procedure Name Priority Date/Time Associated Diagnosis Comments CELIAC DISEASE PANEL Routine 03/08/2022 10:25 EDT documented in this encounter Results * CELIAC DISEASE PANEL (03/08/2022 10:25 EDT) Tissue Transglutaminase Antibody IGA <1.2 <4.0 U/mL 03/13/2022 12:20 EDT [facility] Comment: A negative result may be due to IgA deficiency and does not rule out celiac disease. ? Negative: ??<4.0 U/mL ? Weak Positive: ??4.0 - 10.0 U/mL ? Positive: ??>10.0 U/mL Results were obtained with the SavalancheA Lite R h-tTG IgA RON assay on the StudyAppsX. IgA 229 85 - 499 mg/dL 03/13/2022 12:20 EDT [facility] Celiac Disease Interpretation Negative Serology. Celiac disease unlikely. Approximately 10% of patients with celiac disease are seronegative. Patients who are already adhering to a gluten-free diet may also be seronegative. If celiac disease is highly clinically suspected, referral to gastroenterology for additional evaluation is recommended. 03/13/2022 12:20 EDT [facility] Blood VENOUS BLOOD / Unknown 03/08/2022 10:25 EDT 03/10/2022 18:19 EDT Provider Outr Resulting Lab IMMUNOLOGY A ND SEROLOGY ORDERABLES [facility] [address] [place] [address] documented in this encounter Visit Diagnoses Not on filedocumented in this encounter Care Teams Roving Sizer Relationship Specialty Start Date End Date Unknown, Provider, PCP - General 04/25/15 documented as of this encounter
--- OUTSIDE RECORDS SUMMARY | 2024-02-01 01:58 | XMS_ITS | Encounter Summary ---
Author Organization [facility] Address [address] [place] [address] Care Team Providers Care Rn Interventional Name Role Phone Unknown, Provider Primary Care Provider [phone] Encounter Details Date Type Department Care Team (Late st Contact Info) Description 09/17/2015 Results Only [facility] [phone] Mia Lozano, [address] [place] [address] Social History Tobacco Use Types Packs/Day Years Used Date Smoking Tobacco: Never Assessed Sex and Gender Information Value Date Recorded Sex Assigned at Not on file Gender Identity Not on file Sexual Orientation Not on file documented as of this encounter Plan of Treatment Not on file documented as of this encounter Procedures Procedure Name Priority Date/Time Associated Diagnosis Comments PAP TEST- RESULT ONLY Routine 09/17/2015 0:00 EDT documented in this encounter Results * PAP TEST- RESULT ONLY (09/17/2015 0:00 EDT) Pathology Report: CYTOPATHOLOGY REPORT Reports generated via electronic interface contain original data; however they are lacking the format of the original report. Caution should be taken when reading/interpreti ng unformatted reports. Name: ? JEANETTE MOISE ? Accession #: ? [id number] : ? 1990 (Age: 25) ??F ?Collect Date: ? 09/17/2015 Location: ? [facility] ? Receive Date: ? 09/20/2015 Provider: ?MIA LOZANO PRODUCTION TROUBLESHOOTER Copy to: ? Specimen/Source: ?Pap Test, Cervix/Endocervix, ThinPrep Imaging System with manual evaluation Last Menstrual Period: ? 08/25/15 Hormonal/Contracep tive Status: ? Oral contraceptives ? SPECIMEN ADEQUACY ? Satisfactory for Evaluation - transformation zone component present GENERAL CATEGORIZATION ? Negative for Intraepithelial Lesion or Malignancy INTERPRETATION ? Reactive cellular changes associated with inflammation present (includes repair). ? Document reviewed and electronically signed by: ? JAMES EMERY MD ? Report Date: ??09/29/2015 12:08 End of Report [facility] 09/17/2015 09/20/2015 Mia Lozano PRODUCTION TROUBLESHOOTER PATHOLOGY ORDERABLES Performing Organization Address City/State/[place] Co de Phone Number [facility] [address] [place] [address] documented in this encounter Visit Diagnoses Not on filedocumented in this encounter Care Teams Rn Interventional Relationship Specialty Start Date End Date Unknown, Provider, PCP - General 04/25/15 documented as of this encounter
--- OUTSIDE RECORDS SUMMARY | 2024-02-01 01:58 | XMS_ITS | Encounter Summary ---
Author Organization [facility] Address [address] [place] [address] Care Team Providers Care Ssas Developer Name Role Phone Unknown, Provider Primary Care Provider Encounter Details Date Type Department Care Team (Late st Contact Info) Description 03/11/2021 Lab Requisition [facility] Pathology & Laboratory Medicine - [facility] [address] [place] [address] Outr Resulting Lab, Provider Social History Tobacco [...] Priority Date/Time Associated Diagnosis Comments ZZCOVID-19 TEST [facility] PCR Today 03/11/2021 11:11 EDT COVID-19 TESTING Routine 03/11/2021 11:1 1 EDT documented in this encounter Results * COVID-19 TEST [facility] (03/11/2021 11:11 EDT) Swab ENTIRE NASOPHARYNX / Unknown 03/11/2021 11:11 EDT 03/11/2021 16:00 EDT Provider Outr Resulting Lab MICROBIOLOGY - GENERAL ORDERABLES [facility] [address] [place] [address] * COVID-19 TESTING (03/11/2021 11:11 EDT) COVID-19 rt-PCR Result Negative Negative 03/11/2021 18:59 EDT [facility] Comment: This test has not [...] history, and epidemiological information. Performed on the meevlher Fusion instrument Performing Lab [place] [facility] 03/11/2021 18:59 EDT [facility] Swab 03/11/2021 11:1 1 EDT 03/11/2021 16:00 EDT Provider Outr Resulting Lab MICROBIOLOGY - GENERAL ORDERABLES [facility] [address] [place] [address] documented in this encounter Visit Diagnoses Not on filedocumented in this encounter Care Teams Ssas Developer Relationship Specialty Start Date End Date Unknown, Provider, PCP - General 04/25/15 documented as of this encounter
--- OUTSIDE RECORDS SUMMARY | 2024-02-01 01:58 | XMS_ITS | Encounter Summary ---
Author Organization [facility] Address [address] [place] [address] Care Team Providers Care Applications Chemist Name Role Phone Unknown, Provider Primary Care Provider Encounter Details Date Type Department Care Team (Late st Contact Info) Description 06/05/2020 Lab Requisition [facility] Pathology & Laboratory Medicine - [facility] [address] [place] [address] Outr Resulting Lab, Provider Social History Tobacco [...] Comments CHLAMYDIA/N. GONORRHOEAE AMPLIFIED NUCLEIC ACID Routine 06/04/2020 15:36 EST documented in this encounter Results * CHLAMYDIA/N. GONORRHOEAE AMPLIFIED RNA (06/04/2020 15:36 EST) Neisseria gonorrhoeae Result Negative Negative 06/07/2020 12:33 EST [facility] Chlamydia trachomatis Result Negative Negative 06/07/2020 12:33 EST [facility] Swab ENTIRE ENDOCERVIX / Unknown 06/04/2020 15:36 EST 06/06/2020 17:24 EST Provider Outr Resulting Lab MICROBIOLOGY - GENERAL ORDERABLES [facility] [address] [place] [address] documented in this encounter Visit Diagnoses Not on filedocumented in this encounter Care Teams Applications Chemist Relationship Specialty Start Date End Date Unknown, Provider, PCP - General 04/25/15 documented as of this encounter
--- OUTSIDE RECORDS SUMMARY | 2024-02-01 01:58 | XMS_ITS | Encounter Summary ---
Author Organization [facility] Address [address] [place] [address] Care Team Providers Care In Mold Coater Name Role Phone Unknown, Provider Primary Care Provider Encounter Details Date Type Department Care Team (Late st Contact Info) Description 09/19/2023 Lab Requisition [facility] Pathology & Laboratory Medicine - [facility] [address] [place] [address] Outr Resulting Lab, Provider Social History Tobacco [...] Procedure Name Priority Date/Time Associated Diagnosis Comments HIV 1/2 ANTIGEN AND ANTIBODY, 4TH GENERATION Routine 09/19/2023 11:05 EDT documented in this encounter Results * HIV 1/2 ANTIGEN AND ANTIBODY, 4TH GENERATION (09/19/2023 11:05 EDT) HIV 1 and 2 Antibody/p24 Antigen, 4th Generation Negative Negative 09/19/2023 19:00 EDT [facility] Comment:If acute HIV-1 infec tion is suspected in a high risk patient, submit plasma specimen for HIV-1 RNA quantitation test. Blood VENOUS BLOOD / Unknown 09/19/2023 11:05 EDT 09/19/2023 16:56 EDT Narrative [facility] - 09/19/2023 19:00 EDT Fourth Generation assay performed on the Siemens Centaur XPT. Provider Outr Resulting Lab IMMUNOLOGY A ND SEROLOGY ORDERABLES [facility] [address] [place] [address] documented in this encounter Visit Diagnoses Not on filedocumented in this encounter Care Teams In Mold Coater Relationship Specialty Start Date End Date Unknown, Provider, PCP - General 04/25/15 documented as of this encounter
--- OUTSIDE RECORDS SUMMARY | 2024-02-01 01:58 | XMS_ITS | Encounter Summary ---
Author Organization [facility] Address [address] [place] [address] Care Team Providers Care Vest Presser Name Role Phone Unknown, Provider Primary Care Provider Encounter Details Date Type Department Care Team (Late st Contact Info) Description 11/04/2020 Lab Requisition [facility] Pathology & Laboratory Medicine - [address] [address] Outr Resulting Lab, Provider Social History Tobacco [...] Comments CHLAMYDIA/N. GONORRHOEAE AMPLIFIED NUCLEIC ACID Routine 11/03/2020 13:50 EDT documented in this encounter Results * CHLAMYDIA/N. GONORRHOEAE AMPLIFIED RNA (11/03/2020 13:50 EDT) Neisseria gonorrhoeae Result Negative Negative 11/05/2020 14:06 EDT [facility] Chlamydia trachomatis Result Negative Negative 11/05/2020 14:06 EDT [facility] Swab ENTIRE ENDOCERVIX / Unknown 11/03/2020 13:50 EDT 11/04/2020 16:58 EDT Provider Outr Resulting Lab MICROBIOLOGY - GENERAL ORDERABLES [facility] [address] [place] [address] documented in this encounter Visit Diagnoses Not on filedocumented in this encounter Care Teams Vest Presser Relationship Specialty Start Date End Date Unknown, Provider, PCP - General 04/25/15 documented as of this encounter
--- OUTSIDE RECORDS SUMMARY | 2024-02-01 01:58 | XMS_ITS | Encounter Summary ---
Author Organization [facility] Address [address] [place] [address] Care Team Providers Care Fine Hairer Name Role Phone Unknown, Provider Primary Care Provider Encounter Details Date Type Department Care Team (Late st Contact Info) Description 11/26/2018 Results Only [facility] [phone] Mia Lozano, [address] [place] [address] Social History Tobacco Use Types [...] Diagnosis Comments PAP TEST- RESULT ONLY Routine 11/26/2018 0:00 EDT documented in this encounter Results * PAP TEST- RESULT ONLY (11/26/2018 0:00 EDT) Pathology Report: CYTOPATHOLOGY REPORT Reports generated via electronic interface contain original data; however they are lacking the format of the original report. Caution should be taken when reading/interpreti ng unformatted reports. Name: ? JEANETTE MOISE ? Accession #: ? [id number] : ? 1990 (Age: 28) ??F ?Collect Date: ? 11/26/2018 Location: ? [facility] ? Receive Date: ? 11/27/2018 Provider: ?MIA LOZANO CHEF & OWNER Copy to: ?EMILIANO LESTER PAC ? Specimen/Source: ?Pap Test, Cervix, ThinPrep Imaging System with manual evaluation Last Menstrual Period: ? 11/13/18 ? SPECIMEN ADEQUACY ? Satisfactory for Evaluation - transformation zone component absent GENERAL CATEGORIZATION ? Negative for Intraepithelial Lesion or Malignancy ? Document reviewed and electronically signed by: ? KRYSTYNA Martinez(ASCP) ? Report Date: ??11/28/2018 12:45 End of Report [facility] 11/26/2018 11/27/2018 Mia Lozano CHEF & OWNER PATHOLOGY ORDERABLES [facility] [address] [place] [address] documented in this encounter Visit Diagnoses Not on filedocumented in this encounter Care Teams Fine Hairer Relationship Specialty Start Date End Date Unknown, Provider, PCP - General 04/25/15 documented as of this encounter
--- OUTSIDE RECORDS SUMMARY | 2024-02-01 01:58 | XMS_ITS | Encounter Summary ---
Author Organization [facility] Address [address] [place] [address] Care Team Providers Care Speech Pathologist Name Role Phone Unknown, Provider Primary Care Provider Encounter Details Date Type Department Care Team (Late st Contact Info) Description 09/19/2023 Lab Requisition [facility] Pathology & Laboratory Medicine - [address] [id number] Outr Resulting Lab, Provider Social History Tobacco [...] RNA BY PCR Routine 09/19/2023 11:05 EDT HEPATITIS B SURFACE ANTIGEN Routine 09/19/2023 11:05 EDT documented in this encounter Results * HEPATITIS B SURFACE ANTIGEN (09/19/2023 11:05 EDT) Hep B Surface Ag Negative Negative 09/19/2023 18:27 EDT [facility] Blood VENOUS BLOOD / Unknown 09/19/2023 11:05 EDT 09/19/2023 16:56 EDT Provider Outr Resulting Lab CHEMISTRY & BLOOD GAS ORDERABLES [facility] [address] [place], [place] [id number] * HEPATITIS C AB W REFLEX TO HCV RNA BY PCR (09/19/2023 11:05 EDT) Hep C Antibody Negative Negative 09/19/2023 18:56 EDT [facility] Blood VENOUS BLOOD / Unknown 09/19/2023 11:05 EDT 09/19/2023 16:56 EDT Provider Outr Resulting Lab CHEMISTRY & BLOOD GAS ORDERABLES Performing Organization Address City/State/[facility] Co de Phone Number [facility] [address] [place] [address] documented in this encounter Visit Diagnoses Not on filedocumented in this encounter Care Teams Speech Pathologist Relationship Specialty Start Date End Date Unknown, Provider, PCP - General 04/25/15 documented as of this encounter
--- OUTSIDE RECORDS SUMMARY | 2024-02-01 01:58 | XMS_ITS | Encounter Summary ---
Author Organization [facility] Address [address] [place] [address] Care Team Providers Care Sleeper Cutter Name Role Phone Unknown, Provider Primary Care Provider Encounter Details Date Type Department Care Team (Late st Contact Info) Description 05/05/[address] [facility] Pathology & Laboratory Medicine - [facility] [address] [place] [address] Nelly King MD [address] [place] [address] [place] [address] Encounter for other general examination Social History Tobacco Use Types Packs/Day Years Used Date Smoking Tobacco: Never Assessed Sex and Gender Information Value Date Recorded Sex Assigned at Not on file Gender Identity Not on file Sexual Orientation Not on file documented as of this encounter Plan of Treatment Not on file documented as of this encounter Procedures Procedure Name Priority Date/Time Associated Diagnosis Comments SURGICAL PATHOLOGY Today 05/05/2021 8: 16 EST Encounter for other general examination documented in this encounter Results * SURGICAL PATHOLOGY (05/05/2021 8:16 EST) Note to Patient The following pathology results have been interpreted by your pathologist and may be available to you before your health provider has had the opportunity to review them. Please allow time for your provider to receive these results and explore management options, if applicable. 05/17/2021 12:14 EST [facility] Final Diagnosis A. PLACENTA: Dichorionic-diamn iotic placenta, 855 grams (~50-75th %ile for 36 and 2/7 weeks gestational age). Twin A (370 grams): Disk: - Maternal vascular malperfusion: accelerated villous maturation, chorangiosis, villous agglutination, increased perivillous fibrin, and small septal thrombus. Membranes: - Chronic chorioamnionitis. - Meconium laden macrophages. Umbilical cord: - 3 vessels. - Minimal acute phlebitis, and vasculitis ( inflammatory response stage 2, grade 1). - Meconium laden macrophages in Isaiah's jelly. Twin B (485 grams): Disk: - Diffuse chorangiosis. - Minute focus of adherent basal plate myometrial fibers (PAS stage 1; see comment). Membranes: - Meconium laden macrophages. Umbilical cord: - 3 vessels. - Meconium laden macrophages in Isaiah's jelly. 05/17/2021 12:14 [facility] Diagnosis Comment Placenta accreta spectrum (PAS) staging: Stage 0: No adherent myometrial fibers. Stage 1: Adherent myometrial fibers with intervening decidua. Stage 2: <2 intervening decidual cells. Stage 3: No intervening decidual cells (accreta). Stage 4: Increta. Stage 5: Percreta Stage 6: Involvement of extrauterine organs. 05/17/2021 12:14 [facility] Attestation By the signature below, the attending physician certifies that they have 1) personally conducted a gross and/or microscopic examination of the described specimen(s), and/or personally interpreted the results of laboratory testing of the described specimen(s), and 2) personally rendered or confirmed the above diagnosis. 05/17/2021 12:14 [facility] at 1214 Clinical History Twins - di/di, PEC / GDM (36.2 weeks) 05/17/2021 12:14 [facility] Gross Description A. Received in formalin labelled with proper patient identification (initials L,C) and placenta twins are two discrete placental discs combined weight: 855 grams (trimmed, formalin fixed), both with attached membranes, and attached segments of umbilical cord arbitrarily oriented as Twin A and Twin B. A dividing membrane is present between the two placentas, and there are no anastomosing vessels. Twin A: The membranes of Twin A are complete, estrella white, and moderately transparent with marginate insertion. The point of rupture lies 4.5 cm from the nearest disc margin. The white three vessel umbilical cord of Twin A is a 36.0 cm in length and 1.5 cm in diameter, [...] rupture is indeterminate. The white three vessel umbilical cord of Twin B is a 42.0 [...] spongy. There are no discrete lesions present. [employer] sections are submitted as follows: BLOCK ALEJANDRA [...] A: two full thickness sections of central 2/3 of placental disc A8 - twin B: [...] B: two full thickness sections of central 2/3 of placental disc Marlon Vargase 05/06/2021 16:37 05/17/2021 12:14 EST [facility] Performing Lab [facility] 05/17/2021 12:14 EST [facility] Scanned Images 05/17/2021 12:14 EST [facility] Tissue TWIN PLACENTA / Unknown 05/05/2021 8:16 EST 05/05/2021 17:43 EST Nelly King MD PATHOLOGY ORDERABLES Performing Organization Address City/State/[facility] Co de Phone Number [facility] [address] [place] [phone] documented in this encounter Visit Diagnoses Diagnosis Encounter for other general examination documented in this encounter Care Teams Sleeper Cutter Relationship Specialty Start Date End Date Unknown, Provider, PCP - General 04/25/15 documented as of this encounter
--- OUTSIDE RECORDS SUMMARY | 2024-02-01 01:58 | XMS_ITS | Encounter Summary ---
Author Organization [facility] Address [address] [place] [address] Care Team Providers Care Rigging Helper Name Role Phone Unknown, Provider Primary Care Provider Encounter Details Date Type Department Care Team (Late st Contact Info) Description 01/20/2020 Lab Requisition [facility] Pathology & Laboratory Medicine - [facility] [address] [place] [address] Mia Lozano, [address] [place] [address] Encounter for other general examination [...] Date/Time Associated Diagnosis Comments PAP TEST Today 01/16/2020 11:00 EDT Encounter for other general examination documented in this encounter Results * PAP TEST (01/16/2020 11:00 EDT) Specimens A. Cervix and/or Endocervix , ThinPrep Imaging System with Manual Evaluation 01/30/2020 8:[address] [facility] Specimen Adequacy Satisfactory for Evaluation - transformation zone component present 01/30/2020 8:[address] [facility] General Categorization Negative for intraepithelial lesion or malignancy 01/30/2020 8:[address] [facility] Descriptive Diagnosis Shift in ayush present suggestive of bacterial vaginosis. 01/30/2020 8:[address] [facility] Attestation . 01/30/2020 8:[address] [facility] at 0834 Clinical History SEE ORDER COMMENTS 01/30/2020 8:[address] [facility] Scanned Images 01/30/2020 8:[address] [facility] Papanicolaou smear specimen (specimen) CERVIX UTERI STRUCTURE / Unknown 01/16/2020 11:00 EDT 01/20/2020 11:57 EDT Mia Lozano USED CAR SALES MANAGER PATHOLOGY ORDERABLES [facility] [address] [place] [address] documented in this encounter Visit Diagnoses Diagnosis Encounter for other general examination documented in this encounter Care Teams Rigging Helper Relationship Specialty Start Date End Date Unknown, Provider, PCP - General 04/25/15 documented as of this encounter
--- OUTSIDE RECORDS SUMMARY | 2024-02-01 01:58 | XMS_ITS | Encounter Summary ---
[place] [address] Care Team Providers Care Ethanol Quality Leader Name Role Phone Caren Tita Filiberto FUNG Primary Care Provider [phone] Reason for Referral * Diagnostic Test (Routine) - Closed Specialty Diagnoses / Procedures Referred By Contac t Referred To Contact Radiology Diagnoses Personal history of trophoblastic disease Procedures US OB Detailed Morphology Erasmo Cazares CNM [address] [place] [address] [address] [place] [address] [place] [address] Referral ID Status Reason Start Date Expiration Date V isits Requested Visits Authorized [id number] Closed Specialty Service Requested 09/25/2023 03/26/2025 1 1 Reason for Visit * Diagnostic Test (Routine) - Closed Specialty Diagnoses / Procedures Referred By Contac t Referred To Contact Radiology Diagnoses Personal history of trophoblastic disease Procedures US OB Detailed Morphology Erasmo Cazares CNM [address] [place] [address] [address] [place] [address] [place] [address] Referral ID Status Reason Start Date Expiration Date V isits Requested Visits Authorized [id number] Closed Specialty Service Requested 09/25/2023 03/26/2025 1 1 Encounter Details Date Type Department Care Team (Latest Contact Info) Description 11/21/2023 10:00 AM EDT - 11/21/2023 11:59 PM EDT Hospital [place] [address] Erasmo Cazares CNM [address] [place] [address] Personal history of trophoblastic disease Discharge Disposition: Home Social History Tobacco Use Types Packs/Day Years Used Date Smoking Tobacco: Never Assessed Estimated Date of Delivery Comme nts Yes 04/09/2024 Sex and Gender Information Value Date Recorded Sex Assigned at Not on file Gender Identity Not on file Sexual Orientation Not on file documented as of this encounter Medications at Time of Discharge Medication Sig Dispensed Refills Start Date End Date ondansetron (Zofran) 4 mg tablet Take 4 mg by mouth every 8 hours as needed for Nausea. aspirin 81 mg chewable tablet Take 81 mg by mouth daily. citalopram (CeleXA) 20 mg tablet Take 20 mg by mouth daily. vitamin 27 & xzaxckn-ohcv-JV 60 mg iron-1 mg Tablet Take 1 tablet by mouth daily. levothyroxine (Synthroid) 150 mcg tablet Take 150 mcg by mouth daily. documented as of this encounter Plan of Treatment Not on file documented as of this encounter Procedures Procedure Name Priority Date/Time Associated Diagnosis Comments US OB DETAILED MORPHOLOGY Routine 11/21/2023 10:56 AM EDT Personal history of trophoblastic disease documented in this encounter Results * US OB Detailed Morphology (11/21/2023 10:56 AM EDT) WORKSTATION ID [id number] DH RAD Anatomical Region Laterality Modality [...] who have questions, please contact the health pediatric acute care unit nurse that requested your imaging first. ?Jazmine Berman, Staff Physician Electronically Signed Corrected Final Report ??11/21/2023 02:55 pm Narrative 11/21/2023 11:37 AM EDT OBSTETRICS REPORT ? (Corrected Final 11/21/2023 02:55 pm) PATIENT INFO: ID #: ? [id number] ?: ??[birth year] (33 yrs)(F) Name: ? JEANETTE MOISE ?Visit Date: 11/21/2023 10:10 am PERFORMED BY: Performed By: ? Riana Potts RDMS Attending: ?Cullen BUTLER, Jazmine Benavidez Referred By: ?EARSMO CAZARES Location: ? [place] SERVICE(S) PROVIDED: [facility] - Detailed Morphology - [id number] ? [id number] UOBTVCER - Transvaginal ??2nd Trimester - ?93714 Cervical Length - [id number] INDICATIONS: 20 weeks gestation of ?Z3A.20 HISTORY OF ACCERTA AND SPECTRUM TECHNIQUE/SCAN QUALITY: Technique: ?? Transducer ID#:[id number] VITAL SIGNS: Weight (lb): 216.0 Height: ?5'9 ? BMI: ? 31.89 EVALUATION: Num Of Fetuses: ? 1 Heart Rate(bpm): ??136 Cardiac Activity: ? Observed, normal rhythm Presentation: ? Breech Placenta: ? Anterior no previa P. Cord Insertion: ?Within Normal Limits Amniotic Fluid AUDAR FV: ?Subjectively normal for gestational age --------- [...] ?69.8 ??% FL/AC: ? 21.6 ??% ? 20 - 24 Est. FW: ? 391 ??gm ?0 lb [...] Arch: ? Visualized SVC: ? Visualized Cardiac Trevett: ?Visualized Diaphragm: ? Visualized 3 Vessel View: [...] 11/21/2023 02:55 pm) PATIENT INFO: ID #: [id number] : [birth year] (33 yrs)(F) Name: JEANETTE MOISE Visit Date: 11/21/2023 10:10 am PERFORMED BY: Performed By: Riana Potts RDMS Attending: Jazmine Berman MD Referred By: ERASMO CAZARES Location: [place] SERVICE(S) PROVIDED: [facility] - Detailed Morphology - [id number] UOBTVCER - Transvaginal 2nd Trimester - 68580 Cervical Length - [id number] INDICATIONS: 20 weeks gestation of Z3A.20 HISTORY [...] Visualized Ductal Arch: Visualized SVC: Visualized Cardiac Trevett: Visualized Diaphragm: Visualized 3 Vessel View: Visualized [...] who have questions, please contact the health pediatric acute care unit nurse that requested your imaging first. Jazmine Berman, Staff Physician Electronically Signed Corrected Final Report 11/21/2023 02:55 pm Erasmo Cazares CNM IMG US OB ORDERABLE S documented in this encounter Visit Diagnoses Diagnosis Personal history of trophoblastic disease documented in this encounter Care Teams Ethanol Quality Leader Relationship Specialty Start Date End Date Tita Fabian, [place] PCP - General Family Medicine 09/24/23 documented as of this encounter
--- OUTSIDE RECORDS SUMMARY | 2024-02-01 01:58 | XMS_ITS | Encounter Summary ---
Author Organization [facility] Address [address] [place] [address] Care Team Providers Care Trader Fixed Income Name Role Phone Unavailable Primary Care Provider Unavailabl e Encounter Details Date Type Department Care Team (Late st Contact Info) Description 04/21/2014 Results Only [facility] Laboratory Services - [facility] ([facility]) [address] [place], [place] [address] Mia Lozano, [facility] [address] [place] [address] [place] [address] Social History Tobacco Use Types [...] Diagnosis Comments PAP TEST- RESULT ONLY Routine 04/21/2014 0:00 EST documented in this encounter Results * PAP TEST- RESULT ONLY (04/21/2014 0:00 EST) Pathology Report: CYTOPATHOLOGY REPORT Reports generated via electronic interface contain original data; however they are lacking the format of the original report. Caution should be taken when reading/interpreti ng unformatted reports. Name: ? JEANETTE MOISE ? Accession #: ? [id number] : ? 1990 (Age: 24) ??F ?Collect Date: ? 04/21/2014 Location: ? [facility] ? Receive Date: ? 04/22/2014 Provider: ?MIA LOZANO ORACLE EBS DEVELOPER Copy to: ?BEV NEWMAN FINISHED METAL REPAIRER ? Specimen/Source: ?Pap Test, Cervix/Endocervix, ThinPrep Imaging System with manual evaluation Last Menstrual Period: ? 04/07/2014 Hormonal/Contracep tive Status: ? Oral contraceptives ? SPECIMEN ADEQUACY ? Satisfactory for Evaluation - transformation zone component absent GENERAL CATEGORIZATION ? Negative for Intraepithelial Lesion or Malignancy ? Document reviewed and electronically signed by: ? KRYSTYNA Melissa(ASCP) ? Report Date: ??04/28/2014 10:13 End of Report [facility] 04/21/2014 04/22/2014 Mia Lozano ORACLE EBS DEVELOPER PATHOLOGY ORDERABLES [facility] [address] [place] [address] documented in this encounter Visit Diagnoses Not on filedocumented in this encounter
--- OUTSIDE RECORDS SUMMARY | 2024-02-01 01:58 | XMS_ITS | Encounter Summary ---
Author Organization [facility] Address [address] [place] [address] Care Team Providers Care Sustainability Project Coordinator Name Role Phone Unknown, Provider Primary Care Provider Encounter Details Date Type Department Care Team (Late st Contact Info) Description 11/04/2020 Lab Requisition [facility] Pathology & Laboratory Medicine - [address] [address] Outr Resulting Lab, Provider Social History Tobacco [...] REFLEX TO HCV RNA BY PCR Routine 11/03/2020 14:36 EDT HEPATITIS B SURFACE ANTIGEN Routine 11/03/2020 14:36 EDT documented in this encounter Results * HEPATITIS B SURFACE ANTIGEN (11/03/2020 14:36 EDT) Hep B Surface Ag Negative Negative 11/05/2020 8:38 EDT [facility] Blood VENOUS BLOOD / Unknown 11/03/2020 14:36 EDT 11/04/2020 15:52 EDT Provider Outr Resulting Lab CHEMISTRY & BLOOD GAS ORDERABLES [facility] [address] [place] [address] * HEPATITIS C AB W REFLEX TO HCV RNA BY PCR (11/03/2020 14:36 EDT) Hep C Antibody Negative Negative 11/05/2020 9:21 EDT [facility] Blood VENOUS BLOOD / Unknown 11/03/2020 14:36 EDT 11/04/2020 15:52 EDT Provider Outr Resulting Lab CHEMISTRY & BLOOD GAS ORDERABLES [facility] [address] [place] [address] documented in this encounter Visit Diagnoses Not on filedocumented in this encounter Care Teams Sustainability Project Coordinator Relationship Specialty Start Date End Date Unknown, Provider, PCP - General 04/25/15 documented as of this encounter
--- OUTSIDE RECORDS SUMMARY | 2024-02-01 01:58 | XMS_ITS | Encounter Summary ---
Author Organization [facility] Address [address] [place] [address] Care Team Providers Care Blueprinting And Photocopy Supervisor Name Role Phone Unknown, Provider Primary Care Provider Encounter Details Date Type Department Care Team (Late st Contact Info) Description 11/04/2020 Lab Requisition [facility] Pathology & Laboratory Medicine - [facility] [address] [place] [address] Outr Resulting Lab, Provider Social History Tobacco [...] 1/2 ANTIGEN AND ANTIBODY, 4TH GENERATION Routine 11/03/2020 14:36 EDT documented in this encounter Results * HIV 1/2 ANTIGEN AND ANTIBODY, 4TH GENERATION (11/03/2020 14:36 EDT) HIV 1 and 2 Antibody/p24 Antigen, 4th Generation Negative Negative 11/05/2020 9:42 EDT [facility] Comment: If acute HIV-1 infection is suspected in a high risk ??patient, submit plasma specimen for HIV-1 RNA quantitation test. Fourth Generation assay performed on the Siemens CelluCompaur. Blood VENOUS BLOOD / Unknown 11/03/2020 14:36 EDT 11/04/2020 15:52 EDT Provider Outr Resulting Lab IMMUNOLOGY A ND SEROLOGY ORDERABLES [facility] [address] [place] [address] documented in this encounter Visit Diagnoses Not on filedocumented in this encounter Care Teams Blueprinting And Photocopy Supervisor Relationship Specialty Start Date End Date Unknown, Provider, PCP - General 04/25/15 documented as of this encounter
--- OUTSIDE RECORDS SUMMARY | 2024-02-01 01:58 | XMS_ITS | Encounter Summary ---
[place] [address] Care Team Providers Care Bioinformatics Assistant Name Role Phone Tita Fabian APRN Primary Care Provider [phone] Encounter Details Date Type Department Care Team (Latest Contact Info) Description 11/21/2023 Travel Social History Tobacco Use Types Packs/Day Years Used Date Smoking Tobacco: Never Assessed Estimated Date of Delivery Comme nts Yes 04/09/2024 Sex and Gender Information Value Date Recorded Sex Assigned at Not on file Gender Identity Not on file Sexual Orientation Not on file documented as of this encounter Plan of Treatment Not on file documented as of this encounter Visit Diagnoses Not on filedocumented in this encounter Care Teams Bioinformatics Assistant Relationship Specialty Start Date End Date Tita Fabian APRN PCP - General Family Medicine 09/24/23 documented as of this encounter
--- OUTSIDE RECORDS SUMMARY | 2024-02-01 01:58 | XMS_ITS | Encounter Summary ---
Author Organization [facility] Address [address] [place] [address] Care Team Providers Care Auto Fleet Manager Name Role Phone Unknown, Provider Primary Care Provider Encounter Details Date Type Department Care Team (Late st Contact Info) Description 03/11/2022 Lab Requisition [facility] Pathology & Laboratory Medicine - [address] [address] Outr Resulting Lab, Provider Social History Tobacco [...] Procedure Name Priority Date/Time Associated Diagnosis Comments H. PYLORI ANTIGEN Routine 03/10/2022 9:09 EDT documented in this encounter Results * H. PYLORI ANTIGEN (03/10/2022 9:09 EDT) H. Pylori Negative Negative 03/13/2022 14:41 EDT [facility] Feces SPECIMEN FROM RECTUM / Unknown 03/10/2022 9:09 EDT 03/12/2022 15:12 EDT Narrative [facility] - 03/13/2022 14:41 EDT Results were obtained with the [facility] [place] [facility] RON. Provider Outr Resulting Lab MICROBIOLOGY - GENERAL ORDERABLES [facility] [address] [place] [address] documented in this encounter Visit Diagnoses Not on filedocumented in this encounter Care Teams Auto Fleet Manager Relationship Specialty Start Date End Date Unknown, Provider, PCP - General 04/25/15 documented as of this encounter
--- OUTSIDE RECORDS SUMMARY | 2024-02-01 01:58 | XMS_ITS | Encounter Summary ---
Author Organization [facility] Address [address] [place] [address] Care Team Providers Care Padder Name Role Phone Unknown, Provider Primary Care Provider Encounter Details Date Type Department Care Team (Late st Contact Info) Description 01/16/2020 Lab Requisition [facility] Pathology & Laboratory Medicine - [facility] [address] [place] [address] Outr Resulting Lab, Provider Social History Tobacco [...] Comments CHLAMYDIA/N. GONORRHOEAE AMPLIFIED NUCLEIC ACID Routine 01/16/2020 11:00 EDT documented in this encounter Results * CHLAMYDIA/N. GONORRHOEAE AMPLIFIED RNA (01/16/2020 11:00 EDT) Neisseria gonorrhoeae Result Negative Negative 01/19/2020 13:59 EDT [facility] Chlamydia trachomatis Result Negative Negative 01/19/2020 13:59 EDT [facility] Swab ENTIRE ENDOCERVIX / Unknown 01/16/2020 11:00 EDT 01/16/2020 21:28 EDT Provider Outr Resulting Lab MICROBIOLOGY - GENERAL ORDERABLES [facility] [address] [place] [address] documented in this encounter Visit Diagnoses Not on filedocumented in this encounter Care Teams Padder Relationship Specialty Start Date End Date Unknown, Provider, PCP - General 04/25/15 documented as of this encounter
--- OUTSIDE RECORDS SUMMARY | 2024-02-01 01:58 | XMS_ITS | Encounter Summary ---
Author Organization [facility] Address [address] [place] [address] Care Team Providers Care Parole Officer Name Role Phone Unknown, Provider Primary Care Provider Encounter Details Date Type Department Care Team (Late st Contact Info) Description 09/28/2017 Results Only [facility] [phone] Mia Lozano, [address] [place] [address] Social History Tobacco Use Types [...] Diagnosis Comments PAP TEST- RESULT ONLY Routine 09/28/2017 0:00 EDT documented in this encounter Results * PAP TEST- RESULT ONLY (09/28/2017 0:00 EDT) Pathology Report: CYTOPATHOLOGY REPORT Reports generated via electronic interface contain original data; however they are lacking the format of the original report. Caution should be taken when reading/interpreti ng unformatted reports. Name: ? JEANETTE MOISE ? Accession #: ? [id number] : ? 1990 (Age: 27) ??F ?Collect Date: ? 09/28/2017 Location: ? [facility] ? Receive Date: ? 10/01/2017 Provider: ?MIA LOZANO TECHNICAL EDITOR Copy to: ?EMILIANO LESTER PAC ? Specimen/Source: ?Pap Test, Cervix, ThinPrep Imaging System with manual evaluation Last Menstrual Period: ? 09/19/17 Hormonal/Contracep tive Status: ? Oral contraceptives ? SPECIMEN ADEQUACY ? Satisfactory for Evaluation - transformation zone component present GENERAL CATEGORIZATION ? Negative for Intraepithelial Lesion or Malignancy ? Document reviewed and electronically signed by: ? KRYSTYNA Melissa(ASCP) ? Report Date: ??10/08/2017 13:33 End of Report [facility] 09/28/2017 10/01/2017 Mia Lozano TECHNICAL EDITOR PATHOLOGY ORDERABLES [facility] [address] [place] [address] documented in this encounter Visit Diagnoses Not on filedocumented in this encounter Care Teams Parole Officer Relationship Specialty Start Date End Date Unknown, Provider, PCP - General 04/25/15 documented as of this encounter
--- OUTSIDE RECORDS SUMMARY | 2024-02-01 01:59 | XMS_ITS | Encounter Summary ---
Author Organization Health system Address [address] [place] [address] Care Team Providers Care Load Test Mechanic Name Role Phone Unavailable Primary Care Provider Unavailabl e Encounter Details Date Type Department Care Team (Late st Contact Info) Description 04/17/2013 Results Only [facility] Laboratory Services - [facility] ([facility]) [address] [place], [place] [address] Delaney Collins NP [address] [facility],[address] [address] Social History Tobacco Use Types Packs/Day Years [...] Diagnosis Comments PAP TEST- RESULT ONLY Routine 04/17/2013 0:00 EDT documented in this encounter Results * PAP TEST- RESULT ONLY (04/17/2013 0:00 EDT) Pathology Report: CYTOPATHOLOGY REPORT Reports generated via electronic interface contain original data; however they are lacking the format of the original report. Caution should be taken when reading/interpreti ng unformatted reports. Name: ? JEANETTE MOISE ? Accession #: ? [id number] : ? 1990 (Age: 23) ??F ?Collect Date: ? 04/17/2013 Location: ? [facility] ? Receive Date: ? 04/18/2013 Provider: ?MIA LOZANO FIXED INCOME MANAGER Copy to: ?DELANEY COLLINS DRUPAL PROGRAMMER ? Specimen/Source: ?Pap Test, Cervix/Endocervix, ThinPrep Imaging System with manual evaluation Last Menstrual Period: ? 04/08/2013 Hormonal/Contracep tive Status: ? Oral contraceptives Other: ? Additional clinical information: 1ST PAP ? SPECIMEN ADEQUACY ? Satisfactory for Evaluation - transformation zone component absent GENERAL CATEGORIZATION ? Negative for Intraepithelial Lesion or Malignancy ? Document reviewed and electronically signed by: ? KRYSTYNA Martinez(ASCP) ? Report Date: ??04/24/2013 14:43 End of Report [facility] 04/17/2013 04/18/2013 Mia Lozano FIXED INCOME MANAGER PATHOLOGY ORDERABLES [facility] [address] [place] [address] documented in this encounter Visit Diagnoses Not on filedocumented in this encounter
--- OUTSIDE RECORDS SUMMARY | 2024-02-01 01:59 | XMS_ITS | Encounter Summary ---
Author Organization [facility] Address [address] [place] [address] Care Team Providers Care Gusset Stitcher Name Role Phone Unavailable Primary Care Provider Unavailabl e Encounter Details Date Type Department Care Team (Late st Contact Info) Description 06/09/2000 Results Only [facility] [address] [place] [address] Deandre Rey, DO [address] [facility] [address] [place], [place] [id number] Social History Tobacco Use Types Packs/Day Years Used Date Smoking Tobacco: Never Assessed Sex and Gender Information Value Date Recorded Sex Assigned at Not on file Gender Identity Not on file Sexual Orientation Not on file documented as of this encounter Plan of Treatment Not on file documented as of this encounter Procedures Procedure Name Priority Date/Time Associated Diagnosis Comments SURGICAL PATHOLOGY Routine 06/09/2000 0:00 EST documented in this encounter Results * SURGICAL PATHOLOGY (06/09/2000 0:00 EST) Pathology Report: SURGICAL PATHOLOGY REPORT Reports generated via electronic interface contain original data; however they are lacking the format of the original report. Caution should be taken when reading/interpreti ng unformatted reports. Name: ? SUMAJEANETTE ? Accession #: ? [id number] ? : ? 1990 (Age: 10) ??F ? Collect Date: ? 06/09/2000 ? Location: ? [facility] ? Receive Date: ? 06/13/2000 ? Provider: DEANDRE REY DO Copy to: ELIER CHAPIN MD ? Final Pathologic Diagnosis: ? Appendix, appendectomy: - Acute appendicitis with mild periappendicitis. Document reviewed and electronically signed by: ALIYAH CHAPIN MD Report ??Date: 06/14/2000 14:34 By the signature above, the attending physician certifies that he/she has personally conducted a gross and/or microscopic examination of the described specimens and rendered or confirmed the above diagnosis. Specimen(s) Received: ? #1 appendix Clinical History: [...] contains a moderate amount of friable hemorrhagic material. ??The wall averages 0.2 cm in thickness with no discrete nodules or perforations grossly identified. ??The proximal margin is inked for identification purposes. ??Three claims representative sections are submitted in one cassette. ??(Ana Link)/cassandra End of Report [facility] NGUY[facility] 06/09/2000 06/13/2000 9:4 4 EST Deandre Rey DO PATHOLOGY ORDER MIKE LENNONSELAM NGUYEN [address] [place] [address] documented in this encounter Visit Diagnoses Not on filedocumented in this encounter
[2024-02-01 10:19] LABS: HGB 10.2 g/dL (11.2-15.7); MCH 27.3 pg (27.0-33.0); MCHC 32.9 % (32.0-36.0); MCV 83 fL (80-95); MPV 8.2 fL (8.0-11.0); Platelet Count 282 10^3/uL (130-400); RBC 3.74 10^6/uL (3.93-5.22); RDW 13.2 % (11.7-14.6); RDW-SD 39.9 fL; WBC 10.25 10^3/uL (4.4-10.8)
[2024-02-01 10:41] LABS: TSH (W/Ref FT4) 1.76 uIU/mL (0.36-3.74)
[2024-02-01 11:13] LABS: Glucose,1 Hr (Glucola) 178 mg/dL (80-140)
== END 2024-02-01 01:49 | disposition home or self-care (01) ==
LOC: LBO 01:49
PROVIDERS: PCP Nurse Practitioner Family; Visit Provider Advanced Practice Midwife
DX: Z34.93 Encounter for supervision of normal pregnancy, unspecified, third trimester (principal)
CPT/HCPCS: 36415; 82950; 85027; 84443

== ENCOUNTER 2024-02-14 02:16 | Outpatient (CLI) | payer BC, SELFPAY ==
--- NOTE | 2024-02-14 13:30 | DI.US_ITS ---
Exam(s) US OB AUDRA WEIGHT EXAM: US OB AUDRA WEIGHT CLINICAL HISTORY: size greater than dates, Z34.90. TECHNIQUE: Transabdominal obstetrical ultrasound performed. COMPARISON: US POCUS EXAM from 08/30/2023 FINDINGS:: Number of fetuses: One. position: Breech Placental location: Anterior. No evidence of previa. BIOMETRIC DATA: BPD: 86mm = 34+3 weeks HC: 312mm = 34+ 6 weeks AC: 303mm = 34+2 weeks FL: 70 mm = 35+ 6 weeks EFW: 2511 Gms = greater than a 97% Composite Age: 34+ 6 weeks MESERET: 21 March 2024 Heart Rate: 138BPM Amniotic fluid index: 24.3 cm, at the upper normal range.. IMPRESSION: size and weight are above the expected range. DATA REPOSITORY:
== END 2024-02-14 02:36 ==
LOC: DI 02:16
PROVIDERS: PCP Nurse Practitioner Family; Visit Provider Advanced Practice Midwife
DX: Z34.90 Encounter for supervision of normal pregnancy, unspecified, unspecified trimester (principal)
CPT/HCPCS: 76816

== ENCOUNTER 2024-02-19 04:51 | Outpatient (CLI) | payer BC, SELFPAY ==
[2024-02-19 09:19] LABS: Glucose 1 Hour 165 mg/dL
[2024-02-19 11:36] LABS: Glucose 3 Hour 122 mg/dL
== END 2024-02-19 04:52 | disposition home or self-care (01) ==
LOC: LBO 04:51
PROVIDERS: Advanced Practice Midwife; PCP Nurse Practitioner Family; Visit Provider Advanced Practice Midwife
DX: Z34.93 Encounter for supervision of normal pregnancy, unspecified, third trimester (principal); R73.09 Other abnormal glucose
CPT/HCPCS: 36415; 82951

== ENCOUNTER 2024-02-27 15:10 | Outpatient (CLI) | payer BC, SELFPAY ==
--- OUTSIDE RECORDS SUMMARY | 2024-02-27 15:12 | XMS_ITS | Clinical Summary ---
Author Organization [facility] Address [address] [place] [address] Care Team Providers Care Paper Goods Machine Set Up Operator Name Role Phone Unknown, Provider Primary [...] Negative Negative 09/19/2023 18:56 EDT [facility] Blood VENOUS BLOOD / Unknown 09/19/2023 11:05 EDT 09/19/2023 16:56 EDT Provider Outr Resulting Lab CHEMISTRY & BLOOD GAS ORDERABLES [facility] [address] [place], [place] [address] from Last 3 Months or Most Recently Relevant to Health Maintenance Care Teams Paper Goods Machine Set Up Operator Relationship Specialty Start Date End Date Unknown, Provider, PCP - General 04/25/15
--- OUTSIDE RECORDS SUMMARY | 2024-02-27 15:12 | XMS_ITS | Encounter Summary ---
Author Organization [facility] Address [address] [place] [address] Care Team Providers Care Marketing Services Manager Name Role Phone Unknown, Provider Primary Care Provider Encounter Details Date Type Department Care Team (Late st Contact Info) Description 03/10/2022 Lab Requisition [facility] Pathology & Laboratory Medicine - [facility] [address] [place] [address] Outr Resulting Lab, Provider Social History Tobacco [...] IGA <1.2 <4.0 U/mL 03/13/2022 12:20 EDT [facility] Comment: A negative result may be due to IgA deficiency and does not rule out celiac disease. ? Negative: ??<4.0 U/mL ? Weak Positive: ??4.0 - 10.0 U/mL ? Positive: ??>10.0 U/mL Results were obtained with the [employer] Lite R h-tTG IgA RON assay on the EferioX. IgA 229 85 - 499 mg/dL 03/13/2022 12:20 EDT [facility] Celiac Disease Interpretation Negative Serology. Celiac disease unlikely. Approximately 10% of patients with celiac disease are seronegative. Patients who are already adhering to a gluten-free diet may also be seronegative. If celiac disease is highly clinically suspected, referral to gastroenterology for additional evaluation is recommended. 03/13/2022 12:20 EDT [facility] Blood VENOUS BLOOD / Unknown 03/08/2022 10:25 EDT 03/10/2022 18:19 EDT Provider Outr Resulting Lab IMMUNOLOGY A ND SEROLOGY ORDERABLES [facility] [address] [place] [address] documented in this encounter Visit Diagnoses Not on filedocumented in this encounter Care Teams Marketing Services Manager Relationship Specialty Start Date End Date Unknown, Provider, PCP - General 04/25/15 documented as of this encounter
--- OUTSIDE RECORDS SUMMARY | 2024-02-27 15:12 | XMS_ITS | Encounter Summary ---
[place] [address] Care Team Providers Care Grain Elevator Motor Starter Name Role Phone Tita Fabian APRN Primary Care Provider [phone] Encounter Details Date Type Department Care Team [...] on filedocumented in this encounter Care Teams Grain Elevator Motor Starter Relationship Specialty Start Date End Date Tita Fabian APRN PCP - General Family Medicine 09/24/23 documented as of this encounter
--- OUTSIDE RECORDS SUMMARY | 2024-02-27 15:12 | XMS_ITS | Encounter Summary ---
Author Organization [facility] Address [address] [place] [address] Care Team Providers Care Sweat Band Separator Name Role Phone Unknown, Provider Primary Care Provider Encounter Details Date Type Department Care Team (Late st Contact Info) Description 09/20/2023 Lab Requisition [facility] Pathology & Laboratory Medicine - [facility] [address] [place] [address] [place] [address] Encounter for supervision of normal , unspecified, [...] types, PCR Negative Negative 09/25/2023 19:47 EDT [facility] Comment:No E6 or E7 mRNA is detected from HPV types 16,18,31,33,35,39,45,51,52,56,58,59,66, and 68 by title i instructional assistant mediated amplification. Pap Test CERVIX UTERI STRUCTURE / Unknown 09/19/2023 10:00 EDT 09/25/2023 12:40 EDT Lidia Mary Debora [facility] MICROBIOLOGY - GENERAL ORDERABLES [facility] [address] [place], [place] [id number] * PAP TEST (09/19/2023 10:00 EDT) Specimens A. Cervix and/or Endocervix , ThinPrep Imaging System with Manual Evaluation 09/25/2023 19:47 EDT [facility] Specimen Adequacy Satisfactory for Evaluation - transformation zone component absent 09/25/2023 19:47 EDT [facility] General Categorization Negative for intraepithelial lesion or malignancy 09/25/2023 19:47 T [facility] Attestation . 09/25/2023 19:47 T [facility] at 1947 Clinical History See below 09/25/19 19:47 T [facility] HPV The result for the Human Papillomavirus (HPV) Detection-High Risk Types is Negative. No E6 or E7 mRNA is detected from HPV types 16,18,31,33,35,39 ,45,51,52,56,58,5 9,66, and 68 by title i instructional assistant mediated amplification.Shazia ting was performed on specimen [id number] and was resulted on 09/25/2023 1947 EDT by GERARDO, LAB INSTRUMENT RESULTS IN 09/25/2023 19:47 EDT [facility] Performing Lab [facility] 09/25/2023 19:47 EDT [facility] Scanned Images 09/25/2023 19:47 EDT [facility] Pap Test CERVIX UTERI STRUCTURE / Unknown 09/19/2023 10:00 EDT 09/20/2023 12:11 EDT Lidia Thakkar Debora [facility] PATHOLOGY DAYANA STARKS [facility] [address] [place] [address] documented in this encounter Visit Diagnoses Diagnosis Encounter for supervision of normal , unspecified, unspecified trimester documented in this encounter Care Teams Sweat Band Separator Relationship Specialty Start Date End Date Unknown, Provider, PCP - General 04/25/15 documented as of this encounter
--- OUTSIDE RECORDS SUMMARY | 2024-02-27 15:12 | XMS_ITS | Encounter Summary ---
Author Organization [facility] [place] [address] Care Team Providers Care Jalousie Installer Name Role Phone YusufTita aquino Filiberto FUNG Primary Care Provider [phone] Reason for Visit * Consultation (Routine) - Authorized Specialty Diagnoses / Procedures Referred By Maksim t Referred To Contact Obstetrics and Gynecology Diagnoses Encounter for supervision of normal , antepartum, unspecified Personal history of other complications of , childbirth and the puerperium HX OF PLACENTA ACCRETA Lidia Cazares, [address] [place] [address] [facility] [address] [address] [place] [address] Referral ID Status Reason Start Date Expiration Date Visits Requested Visits Authorized [id number] Authorized Consult, Test & Treat PCP Updated and/or Approved 09/18/2023 03/19/2024 6 6 Encounter Details Date Type Department Care Team (Late st Contact Info) Description 11/21/2023 11:00 AM EDT Office Visit Obstetrics [place] [address] Jazmine Berman MD [facility] [address] [place] [address] Placental problem suspected but not [...] in consultation at the request of Lidia Cazraes CNM for evaluation of prior notable for [...] citalopram, levothyroxine, ondansetron, and vitamin 27 & vjflbtt-qtvv-IV Current Outpatient Medications Medication Sig Dispense Refill ondansetron (Zofran) 4 mg tablet Take 4 mg by mouth every 8 hours as needed for Nausea. aspirin 81 mg chewable tablet Take 81 mg by mouth daily. citalopram (CeleXA) 20 mg tablet Take 20 mg by mouth daily. vitamin 27 & rtwemjp-sjia-CB 60 mg iron-1 mg Tablet Take 1 [...] to history of accreta. Placenta is more qegr2ve away from the internal cervical os. No evidence of accreta spectrum. Detailed anatomic evaluation was performed and no structural abnormalities are noted. Physical Exam 11/21/2023 Vitals BP 135/61 Heart Rate 66 Temp 35.9 ??C (96.7 ??F) Resp 16 Weight (Nicaraguan) 214 lbs 5 oz Weight (Metric) 97.2 [...] She does notneed to be delivered at [facility]. It would be prudent to do an [...] Jazmine Berman MD 11/21/2023 Cc: Lidia Cazares, [address] [place] [address] documented in this encounter Plan of Treatment Not on file documented as of this encounter Visit Diagnoses Diagnosis Placental problem suspected but not found Suspected placental problem not found Hx of preeclampsia, prior , currently , second trimester documented in this encounter Care Teams Jalousie Installer Relationship Specialty Start Date End Date Tita Fabian, [place] PCP - General Family Medicine 09/24/23 documented as of this encounter
--- OUTSIDE RECORDS SUMMARY | 2024-02-27 15:12 | XMS_ITS | Encounter Summary ---
[place] [address] Care Team Providers Care Screen Handler Name Role Phone Tita Fabian Filiberto FUNG Primary Care Provider [phone] Reason for Referral * Consultation (Routine) - Authorized Specialty Diagnoses / Procedures Referred By Maksim t Referred To Contact Obstetrics and Gynecology Diagnoses Encounter for supervision of normal , antepartum, unspecified Personal history of other complications of , childbirth and the puerperium HX OF PLACENTA ACCRETA Lidia Cazares CNM [address] [place] [address] [address] [place] [address] [facility] Clinical Outcomes Manager [address] [address] Referral ID Status Reason Start Date Expiration Date Visits Requested Visits Authorized [id number] Authorized Consult, Test & Treat PCP Updated and/or Approved 09/18/2023 03/19/2024 6 6 Encounter Details Date Type Department Care Team (Latest Contact Info) Description 09/24/2023 Transcribe Orders eDH Incoming Referrals [phone] Lidia Cazares CNM [address] [place] [address] [address] [place], [place] [id number] Encounter for supervision of normal , antepartum, [...] puerperium documented in this encounter Care Teams Screen Handler Relationship Specialty Start Date End Date Tita Fabian, [place] PCP - General Family Medicine 09/24/23 documented as of this encounter
--- OUTSIDE RECORDS SUMMARY | 2024-02-27 15:12 | XMS_ITS | Encounter Summary ---
Author Organization [facility] Address [address] [place] [address] Care Team Providers Care Front Desk Admin Name Role Phone Unknown, Provider Primary Care Provider [phone] Encounter Details Date Type Department Care Team (Late st Contact Info) Description 11/04/2020 Lab Requisition [facility] Pathology & Laboratory Medicine - [address] [address] Outr Resulting Lab, Provider Social History Tobacco [...] Negative Negative 11/05/2020 14:06 EDT [facility] Chlamydia trachomatis Result Negative Negative 11/05/2020 14:06 EDT [facility] Swab ENTIRE ENDOCERVIX / Unknown 11/03/2020 13:50 EDT 11/04/2020 16:58 EDT Provider Outr Resulting Lab MICROBIOLOGY - GENERAL ORDERABLES [facility] [address] [place] [address] documented in this encounter Visit Diagnoses Not on filedocumented in this encounter Care Teams Front Desk Admin Relationship Specialty Start Date End Date Unknown, Provider, PCP - General 04/25/15 documented as of this encounter
--- OUTSIDE RECORDS SUMMARY | 2024-02-27 15:12 | XMS_ITS | Encounter Summary ---
Author Organization [facility] Address [address] [place] [address] Care Team Providers Care Camp Attendant Name Role Phone Unknown, Provider Primary Care Provider Encounter Details Date Type Department Care Team (Late st Contact Info) Description 04/27/2021 Lab Requisition [facility] Pathology & Laboratory Medicine - [facility] [address] [place] [address] Outr Resulting Lab, Provider Social History Tobacco [...] Priority Date/Time Associated Diagnosis Comments ZZCOVID-[address] [facility] PCR Today 04/27/2021 2:19 EST COVID-19 TESTING Routine 04/27/2021 2:19 EST documented in this encounter Results * COVID-19 TEST [facility] PCR (04/27/2021 2:19 EST) Swab 04/27/2021 2:19 EST 04/27/2021 17:15 EST Provider Outr Resulting Lab MICROBIOLOGY - GENERAL ORDERABLES [facility] [address] [place] [address] * COVID-19 TESTING (04/27/2021 2:19 EST) COVID-19 rt-PCR Result Negative Negative 04/27/2021 20:42 EST [facility] Comment: This test has not [...] history, and epidemiological information. Performed on the Zurff Fusion instrument Performing Lab [place] [facility] 04/27/2021 20:42 EST [facility] Swab 04/27/2021 2:19 EST 04/27/2021 17:15 EST Provider Outr Resulting Lab MICROBIOLOGY - GENERAL ORDERABLES [facility] [address] [place] [address] documented in this encounter Visit Diagnoses Not on filedocumented in this encounter Care Teams Camp Attendant Relationship Specialty Start Date End Date Unknown, Provider, PCP - General 04/25/15 documented as of this encounter
--- OUTSIDE RECORDS SUMMARY | 2024-02-27 15:12 | XMS_ITS | Encounter Summary ---
Author Organization [facility] [place] [address] Care Team Providers Care Watch Train Assembler Name Role Phone Russ Blount Primary Care Provider [phone] Encounter Details Date Type Department Care Team (Late st Contact Info) Description 01/04/2016 Orders Only [place] [address] Nelly Jones, [facility] [place] [address] Social History Tobacco Use Types Packs/Day Years [...] 1:51 PM EDT) Quantiferon-TB Gold Negative Negative [facility] Comment: Nil (IU/mL)=0.05 TB [...] Narrative Resulting Agency Comment Spec In Lab Nlely Jones DATA ANALYTICS ANALYST CHEMISTRY ORDERABLES [facility] [place] [address] documented in this encounter Visit Diagnoses Not on filedocumented in this encounter Care Teams Watch Train Assembler Relationship Specialty Start Date End Date Russ Blount PA [address] [place] [address] PCP - General General Internal Medicine 01/04/1612/20 documented as of this encounter
--- OUTSIDE RECORDS SUMMARY | 2024-02-27 15:12 | XMS_ITS | Encounter Summary ---
Author Organization [facility] Address [address] [place] [address] Care Team Providers Care Chief Executive Or Managing Director Name Role Phone Unknown, Provider Primary Care Provider [phone] Encounter Details Date Type Department Care Team (Late st Contact Info) Description 03/11/2021 Lab Requisition [facility] Pathology & Laboratory Medicine - [facility] [address] [place] [address] Outr Resulting Lab, Provider Social History Tobacco [...] Priority Date/Time Associated Diagnosis Comments ZZCOVID-19 TEST [facility] PCR Today 03/11/2021 11:11 EDT COVID-19 TESTING Routine 03/11/2021 11:1 1 EDT documented in this encounter Results * COVID-19 TEST [facility] PCR (03/11/2021 11:11 EDT) Swab ENTIRE NASOPHARYNX / Unknown 03/11/2021 11:11 EDT 03/11/2021 16:00 EDT Provider Outr Resulting Lab MICROBIOLOGY - GENERAL ORDERABLES [facility] [address] [place] [address] * COVID-19 TESTING (03/11/2021 11:11 EDT) COVID-19 rt-PCR Result Negative Negative 03/11/2021 18:59 EDT [facility] Comment: This test has not [...] history, and epidemiological information. Performed on the [employer]-Ideasher Fusion instrument Performing Lab [place] [facility] 03/11/2021 18:59 EDT [facility] Swab 03/11/2021 11:1 1 EDT 03/11/2021 16:00 EDT Provider Outr Resulting Lab MICROBIOLOGY - GENERAL ORDERABLES [facility] [address] [place] [address] documented in this encounter Visit Diagnoses Not on filedocumented in this encounter Care Teams Chief Executive Or Managing Director Relationship Specialty Start Date End Date Unknown, Provider, PCP - General 04/25/15 documented as of this encounter
--- OUTSIDE RECORDS SUMMARY | 2024-02-27 15:12 | XMS_ITS | Encounter Summary ---
Author Organization [facility] Address [address] [place] [address] Care Team Providers Care Farmworker Grain Name Role Phone Unknown, Provider Primary Care Provider Encounter Details Date Type Department Care Team (Late st Contact Info) Description 01/20/2020 Lab Requisition [facility] Pathology & Laboratory Medicine - [facility] [address] [place] [address] Mia Lozano, [address] [place] [address] Encounter for other general examination [...] System with Manual Evaluation 01/30/2020 8:34 EDT [facility] Specimen Adequacy Satisfactory for Evaluation - transformation zone component present 01/30/2020 8:34 EDT [facility] General Categorization Negative for intraepithelial lesion or malignancy 01/30/2020 8:34 EDT [facility] Descriptive Diagnosis Shift in ayush present suggestive of bacterial vaginosis. 01/30/2020 8:34 EDT [facility] Attestation . 01/30/2020 8:34 EDT [facility] at 0834 Clinical History SEE ORDER COMMENTS 01/30/2020 8:34 EDT [facility] Scanned Images 01/30/2020 8:34 EDT [facility] Papanicolaou smear specimen (specimen) CERVIX UTERI STRUCTURE / Unknown 01/16/2020 11:00 EDT 01/20/2020 11:57 EDT Mia Lozano RIVET SORTER PATHOLOGY ORDERABLES [facility] [address] [place] [address] documented in this encounter Visit Diagnoses Diagnosis Encounter for other general examination documented in this encounter Care Teams Farmworker Grain Relationship Specialty Start Date End Date Unknown, Provider, PCP - General 04/25/15 documented as of this encounter
--- OUTSIDE RECORDS SUMMARY | 2024-02-27 15:12 | XMS_ITS | Encounter Summary ---
Author Organization [facility] Address [address] [place] [address] Care Team Providers Care Gas Dispatcher Name Role Phone Unknown, Provider Primary Care Provider Encounter Details Date Type Department Care Team (Late st Contact Info) Description 01/16/2020 Lab Requisition [facility] Pathology & Laboratory Medicine - [facility] [address] [place] [address] Outr Resulting Lab, Provider Social History Tobacco [...] gonorrhoeae Result Negative Negative 01/19/2020 13:59 EDT [facility] Chlamydia trachomatis Result Negative Negative 01/19/2020 13:59 EDT [facility] Swab ENTIRE ENDOCERVIX / Unknown 01/16/2020 11:00 EDT 01/16/2020 21:28 EDT Provider Outr Resulting Lab MICROBIOLOGY - GENERAL ORDERABLES [facility] [address] [place] [address] documented in this encounter Visit Diagnoses Not on filedocumented in this encounter Care Teams Gas Dispatcher Relationship Specialty Start Date End Date Unknown, Provider, PCP - General 04/25/15 documented as of this encounter
--- OUTSIDE RECORDS SUMMARY | 2024-02-27 15:12 | XMS_ITS | Encounter Summary ---
Author Organization [facility] Address [address] [place] [address] Care Team Providers Care Immigration Lawyer Name Role Phone Unknown, Provider Primary Care Provider Encounter Details Date Type Department Care Team (Late st Contact Info) Description 01/04/2021 Lab Requisition [facility] Pathology & Laboratory Medicine - [facility] [address] [place] [address] Outr Resulting Lab, Provider Social History Tobacco [...] 59.8 See Note mIU/mL 01/05/2021 9:44 EDT [facility] Comment: Reference Range for Hep B Surface Ab, Quant: Positive: >= 10.0 mIU/mL Negative: ??< 10.0 mIU/mL Patient is presumed to be immune to infection with Hepatitis B Virus. Hep B Surface Ab, Qualitative Positive See Note 01/05/2021 9:44 EDT [facility] Comment: Reference Range for Hep B Surface Ab, Qual: Unvaccinated: ??Negative Vaccinated: ??Positive Blood VENOUS BLOOD / Unknown 01/04/2021 12:13 EDT 01/04/2021 21:18 EDT Provider Outr Resulting Lab CHEMISTRY & BLOOD GAS ORDERABLES [facility] [address] [place] [address] documented in this encounter Visit Diagnoses Not on filedocumented in this encounter Care Teams Immigration Lawyer Relationship Specialty Start Date End Date Unknown, Provider, PCP - General 04/25/15 documented as of this encounter
--- OUTSIDE RECORDS SUMMARY | 2024-02-27 15:12 | XMS_ITS | Encounter Summary ---
Author Organization [facility] Address [address] [place] [address] Care Team Providers Care Metal Furrer Name Role Phone Unavailable Primary Care Provider Unavailabl e Encounter Details Date Type Department Care Team (Late st Contact Info) Description 04/17/2013 Results Only [facility] Laboratory Services - [facility] ([facility]) [address] [place], [place] [address] Delaney Collins NP [address] [facility],[address] [address] Social History Tobacco Use Types [...] ? JEANETTE MOISE ? Accession #: ? [id number] : ? 1990 (Age: 23) ??F ?Collect Date: ? 04/17/2013 Location: ? [facility] ? Receive Date: ? 04/18/2013 Provider: ?MIA LOZANO POSTING CLERK Copy to: ?DELANEY COLLINS TUG CAPTAIN ? Specimen/Source: ?Pap Test, Cervix/Endocervix, ThinPrep Imaging [...] Report [facility] 04/17/2013 04/18/2013 Mia Lozano POSTING CLERK PATHOLOGY ORDERABLES [facility] [address] [place] [address] documented in this encounter Visit Diagnoses Not on filedocumented in this encounter
--- OUTSIDE RECORDS SUMMARY | 2024-02-27 15:12 | XMS_ITS | Encounter Summary ---
Author Organization [facility] Address [address] [place] [address] Care Team Providers Care Chemistry Faculty Member Name Role Phone Unavailable Primary Care Provider Unavailabl e Encounter Details Date Type Department Care Team (Late st Contact Info) Description 04/21/2014 Results Only [facility] Laboratory Services - [facility] ([facility]) [address] [place], [place] [address] Mia Lozano, [facility] [address] [place] [address] [place] [address] Social History Tobacco Use Types [...] ? JEANETTE MOISE ? Accession #: ? [id number] : ? 1990 (Age: 24) ??F ?Collect Date: ? 04/21/2014 Location: ? [facility] ? Receive Date: ? 04/22/2014 Provider: ?MIA LOZANO MARKETING PROJECT LEAD Copy to: ?BEV NEWMAN SORTING MACHINE OPERATOR ? Specimen/Source: ?Pap Test, Cervix/Endocervix, ThinPrep Imaging System with manual evaluation Last Menstrual Period: ? 04/07/2014 Hormonal/Contracep tive Status: ? Oral contraceptives ? SPECIMEN ADEQUACY ? Satisfactory for Evaluation - transformation zone component absent GENERAL CATEGORIZATION ? Negative for Intraepithelial Lesion or Malignancy ? Document reviewed and electronically signed by: ? KRYSTYNA Melissa(ASCP) ? Report Date: ??04/28/2014 10:13 End of Report [facility] 04/21/2014 04/22/2014 Mia Lozano MARKETING PROJECT LEAD PATHOLOGY ORDERABLES [facility] [address] [place] [address] documented in this encounter Visit Diagnoses Not on filedocumented in this encounter
--- OUTSIDE RECORDS SUMMARY | 2024-02-27 15:12 | XMS_ITS | Encounter Summary ---
Author Organization [facility] Address [address] [place] [address] Care Team Providers Care Ocean Lifeguard Specialist Name Role Phone Unknown, Provider Primary Care Provider Encounter Details Date Type Department Care Team (Late st Contact Info) Description 09/19/[address] [facility] Pathology & Laboratory Medicine - [facility] [address] [place], [place] [address] Outr Resulting Lab, Provider Social History Tobacco [...] gonorrhoeae Result Negative Negative 09/20/2023 13:15 EDT [facility] Chlamydia trachomatis Result Negative Negative 09/20/2023 13:15 EDT [facility] Swab ENDOCERVICAL STRUCTURE / Unknown 09/19/2023 10:00 EDT 09/19/2023 22:01 EDT Provider Outr Resulting Lab MICROBIOLOGY - GENERAL ORDERABLES [facility] [address] [place], [place] [address] documented in this encounter Visit Diagnoses Not on filedocumented in this encounter Care Teams Ocean Lifeguard Specialist Relationship Specialty Start Date End Date Unknown, Provider, PCP - General 04/25/15 documented as of this encounter
--- OUTSIDE RECORDS SUMMARY | 2024-02-27 15:12 | XMS_ITS | Referral Summary ---
Author Organization [facility] Address [address] [place] [address] Care Team Providers Care Development Professional Name Role Phone Unknown, Provider Primary Care Provider [phone] Social History Tobacco Use Types Packs/Day Years [...] C Antibody Negative Negative 09/19/2023 18:56 EDT [facility] Blood VENOUS BLOOD / Unknown 09/19/2023 11:05 EDT 09/19/2023 16:56 EDT Provider Outr Resulting Lab CHEMISTRY & BLOOD GAS ORDERABLES [facility] [address] [place] [address] from Last 3 Months or Most Recently Relevant to Health Maintenance Care Teams Development Professional Relationship Specialty Start Date End Date Unknown, Provider, PCP - General 04/25/15
--- OUTSIDE RECORDS SUMMARY | 2024-02-27 15:12 | XMS_ITS | Encounter Summary ---
Author Organization [facility] Address [address] [place] [address] Care Team Providers Care Shovel Log Loader Operator Name Role Phone Unknown, Provider Primary Care Provider Encounter Details Date Type Department Care Team (Late st Contact Info) Description 09/19/2023 Lab Requisition [facility] Pathology & Laboratory Medicine - [address] [address] Outr Resulting Lab, Provider Social History Tobacco [...] Surface Ag Negative Negative 09/19/2023 18:27 EDT [facility] Blood VENOUS BLOOD / Unknown 09/19/2023 11:05 EDT 09/19/2023 16:56 EDT Provider Outr Resulting Lab CHEMISTRY & BLOOD GAS ORDERABLES [facility] [address] [place], [place] [id number] * HEPATITIS C AB W REFLEX TO HCV RNA BY PCR (09/19/2023 11:05 EDT) Hep C Antibody Negative Negative 09/19/2023 18:56 EDT [facility] Blood VENOUS BLOOD / Unknown 09/19/2023 11:05 EDT 09/19/2023 16:56 EDT Provider Outr Resulting Lab CHEMISTRY & BLOOD GAS ORDERABLES Performing Organization Address City/State/[facility] Co de Phone Number [facility] [address] [place] [address] documented in this encounter Visit Diagnoses Not on filedocumented in this encounter Care Teams Shovel Log Loader Operator Relationship Specialty Start Date End Date Unknown, Provider, PCP - General 04/25/15 documented as of this encounter
--- OUTSIDE RECORDS SUMMARY | 2024-02-27 15:12 | XMS_ITS | Encounter Summary ---
Author Organization [facility] Address [address] [place] [address] Care Team Providers Care Air Antisubmarine Officer Name Role Phone Unknown, Provider Primary Care Provider [phone] Encounter Details Date Type Department Care Team (Late st Contact Info) Description 09/28/[address] [facility]- [facility] [phone] Mia Lozano, [address] [place] [address] Social History Tobacco Use Types [...] ? JEANETTE MOISE ? Accession #: ? [id number] : ? 1990 (Age: 27) ??F ?Collect Date: ? 09/28/2017 Location: ? [facility] ? Receive Date: ? 10/01/2017 Provider: ?MIA LOZANO LAUNDRY AGENT Copy to: ?EMILIANO LESTER PAC ? Specimen/Source: [...] Report Date: ??10/08/2017 13:33 End of Report [facility] 09/28/2017 10/01/2017 Mia Lozano LAUNDRY AGENT PATHOLOGY ORDERABLES [facility] [address] [place] [address] documented in this encounter Visit Diagnoses Not on filedocumented in this encounter Care Teams Air Antisubmarine Officer Relationship Specialty Start Date End Date Unknown, Provider, PCP - General 04/25/15 documented as of this encounter
--- OUTSIDE RECORDS SUMMARY | 2024-02-27 15:12 | XMS_ITS | Encounter Summary ---
Author Organization [facility] Address [address] [place] [address] Care Team Providers Care Carbon Paper Coating Supervisor Name Role Phone Unknown, Provider Primary Care Provider Encounter Details Date Type Department Care Team (Late st Contact Info) Description 09/19/2023 Lab Requisition [facility] Pathology & Laboratory Medicine - [facility] [address] [place] [address] Outr Resulting Lab, Provider Social History Tobacco [...] Ab Positive See Note 09/20/2023 9:45 EDT [facility] Comment:Presence of detectab le Varicella Zoster virus IgG antibodies. Blood VENOUS BLOOD / Unknown 09/19/2023 11:05 EDT 09/19/2023 16:56 EDT Provider Outr Resulting Lab IMMUNOLOGY A ND SEROLOGY ORDERABLES [facility] [address] [place], [place] [id number] * RUBELLA IGG ANTIBODY (09/19/2023 11:05 EDT) Rubella IgG Ab Positive See Note 09/20/2023 9:56 EDT [facility] Comment:Positive for IgG ant ibodies to Rubella virus. Blood VENOUS BLOOD / Unknown 09/19/2023 11:05 EDT 09/19/2023 16:56 EDT Provider Outr Resulting Lab CHEMISTRY & BLOOD GAS ORDERABLES [facility] [address] [place] [address] documented in this encounter Visit Diagnoses Not on filedocumented in this encounter Care Teams Carbon Paper Coating Supervisor Relationship Specialty Start Date End Date Unknown, Provider, PCP - General 04/25/15 documented as of this encounter
--- OUTSIDE RECORDS SUMMARY | 2024-02-27 15:12 | XMS_ITS | Encounter Summary ---
Author Organization [facility] Address [address] [place] [address] Care Team Providers Care Ironer Name Role Phone Unavailable Primary Care Provider Unavailabl e Encounter Details Date Type Department Care Team (Late st Contact Info) Description 06/09/2000 Results Only [facility] [address] [place] [address] Deandre Rey, DO [address] [facility] [address] [place], [place] [id number] Social History Tobacco Use Types Packs/Day Years [...] Name: ? SUMAJEANETTE ? Accession #: ? [id number] ? : ? 1990 (Age: 10) ??F [...] margin is inked for identification purposes. ??Three volunteer patient representative sections are submitted in one cassette. ??(Ana Link)/cassandra End of Report CITLALLI NGUYEN 06/09/2000 06/13/2000 9:4 4 EST Deandre Rey DO PATHOLOGY ORDER MIKE LENNONSELAM NGUYEN [address] [place] [address] documented in this encounter Visit Diagnoses Not on filedocumented in this encounter
--- OUTSIDE RECORDS SUMMARY | 2024-02-27 15:12 | XMS_ITS | Encounter Summary ---
[place] [address] Care Team Providers Care Service Parts Coordinator Name Role Phone Yusufmiles Tita Miles FUNG Primary Care Provider [phone] Reason for Referral * Diagnostic Test (Routine) - Closed Specialty Diagnoses / Procedures Referred By Contac t Referred To Contact Radiology Diagnoses Personal history of trophoblastic disease Procedures US OB Detailed Morphology Erasmo Cazares CNM [address] [place] [address] [address] [place] [address] [place] [address] Referral ID Status Reason Start Date Expiration Date V isits Requested Visits Authorized [id number] Closed Specialty Service Requested 09/25/2023 03/26/2025 1 1 Reason for Visit * Diagnostic Test (Routine) - Closed Specialty Diagnoses / Procedures Referred By Contac t Referred To Contact Radiology Diagnoses Personal history of trophoblastic disease Procedures US OB Detailed Morphology Erasmo Cazares CNM [address] [place] [address] [address] [place] [address] [place] [address] Referral ID Status Reason Start Date Expiration Date V isits Requested Visits Authorized [id number] Closed Specialty Service Requested 09/25/2023 03/26/2025 1 1 Encounter Details Date Type Department Care Team (Latest Contact Info) Description 11/21/2023 10:00 AM EDT - 11/21/2023 11:59 PM EDT [place] [address] Erasmo Cazares CNM [address] [facility] [address] [place] [address] Personal history of trophoblastic disease Discharge Disposition: [...] mg by mouth daily. vitamin 27 & [id number] 60 mg iron-1 mg Tablet Take 1 [...] Morphology (11/21/2023 10:56 AM EDT) WORKSTATION ID [id number] DH RAD Anatomical Region Laterality Modality [...] who have questions, please contact the health laboratory animal caretaker that requested your imaging first. ?Jazmine Berman, Staff Physician Electronically Signed Corrected Final Report ??11/21/2023 02:55 pm Narrative 11/21/2023 11:37 AM EDT OBSTETRICS REPORT ? (Corrected Final 11/21/2023 02:55 pm) PATIENT INFO: ID #: ? [id number] ?: ??[birth year] (33 yrs)(F) Name: ? JEANETTE MOISE ?Visit Date: 11/21/2023 10:10 am PERFORMED BY: Performed By: ? Riana Potts RDMS Attending: ?Cullen BUTLER, Jazmine Benavidez Referred By: ?ERASMO CAZARSE Location: ? [place] SERVICE(S) PROVIDED: [facility] - Detailed Morphology - [id number] ? 93689 UOBTVCER - Transvaginal ??2nd Trimester - ?60895 Cervical Length - [id number] INDICATIONS: 20 weeks gestation of ?Z3A.20 HISTORY [...] Arch: ? Visualized SVC: ? Visualized Cardiac Greenleaf: ?Visualized Diaphragm: ? Visualized 3 Vessel View: [...] 11/21/2023 02:55 pm) PATIENT INFO: ID #: [id number] : [birth year] (33 yrs)(F) Name: JEANETTE MOISE Visit Date: 11/21/2023 10:10 am PERFORMED BY: Performed By: Riana Potts RDMS Attending: Jazmine Berman MD Referred By: ERASMO CAZARES Location: [place] SERVICE(S) PROVIDED: [facility] - Detailed Morphology - [id number] [id number] UOBTVCER - Transvaginal 2nd Trimester - 28558 Cervical Length - [id number] INDICATIONS: 20 weeks gestation of Z3A.20 HISTORY [...] Visualized Ductal Arch: Visualized SVC: Visualized Cardiac Greenleaf: Visualized Diaphragm: Visualized 3 Vessel View: Visualized [...] who have questions, please contact the health laboratory animal caretaker that requested your imaging first. Jazmine Berman, Staff Physician Electronically Signed Corrected Final Report 11/21/2023 02:55 pm Erasmo Cazares CNM IMG US OB ORDERABLE S documented in this encounter Visit Diagnoses Diagnosis Personal history of trophoblastic disease documented in this encounter Care Teams Service Parts Coordinator Relationship Specialty Start Date End Date Tita Fabian, [place] PCP - General Family Medicine 09/24/23 documented as of this encounter
--- OUTSIDE RECORDS SUMMARY | 2024-02-27 15:12 | XMS_ITS | Encounter Summary ---
Author Organization [facility] Address [address] [place] [address] Care Team Providers Care Director Of Retail Operations Name Role Phone Unknown, Provider Primary Care Provider [phone] Encounter Details Date Type Department Care Team (Late st Contact Info) Description 05/05/2021 Lab Requisition [facility] Pathology & Laboratory Medicine - [facility] [address] [place] [address] Nelly King MD [address] [place] [address] [address] [place] [address] Encounter for other general examination [...] management options, if applicable. 05/17/2021 12:14 EST [facility] Final Diagnosis A. PLACENTA: Dichorionic-diamn [...] grade 1). - Meconium laden macrophages in Berger's jelly. Twin B (485 grams): Disk: - Diffuse chorangiosis. - Minute focus of adherent basal plate myometrial fibers (PAS stage 1; see comment). Membranes: - Meconium laden macrophages. Umbilical cord: - 3 vessels. - Meconium laden macrophages in Berger's jelly. 05/17/2021 12:14 [facility] Diagnosis Comment Placenta accreta spectrum (PAS) staging: Stage 0: No adherent myometrial fibers. Stage 1: Adherent myometrial fibers with intervening decidua. Stage 2: <2 intervening decidual cells. Stage 3: No intervening decidual cells (accreta). Stage 4: Increta. Stage 5: Percreta Stage 6: Involvement of extrauterine organs. 05/17/2021 12:14 [facility] Attestation By the signature below, the attending physician certifies that they have 1) personally conducted a gross and/or microscopic examination of the described specimen(s), and/or personally interpreted the results of laboratory testing of the described specimen(s), and 2) personally rendered or confirmed the above diagnosis. 05/17/2021 12:14 [facility] at [address]14 Clinical History Twins - di/di, PEC / GDM (36.2 weeks) 05/17/2021 12:14 [facility] Gross Description A. Received in [...] spongy. There are no discrete lesions present. Barge Loader sections are submitted as follows: BLOCK ALEJANDRA [...] Marlon Vargase 05/06/2021 16:37 05/17/2021 12:14 EST [facility] Performing Lab [facility] 05/17/2021 12:14 EST [facility] Scanned Images 05/17/2021 12:14 EST [facility] Tissue TWIN PLACENTA / Unknown 05/05/2021 8:16 EST 05/05/2021 17:43 EST Nelly King MD PATHOLOGY ORDERABLES Performing Organization Address City/State/[facility] Co de Phone Number [facility] [address] [place] [address] documented in this encounter Visit Diagnoses Diagnosis Encounter for other general examination documented in this encounter Care Teams Director Of Retail Operations Relationship Specialty Start Date End Date Unknown, Provider, PCP - General 04/25/15 documented as of this encounter
--- OUTSIDE RECORDS SUMMARY | 2024-02-27 15:12 | XMS_ITS | Encounter Summary ---
Author Organization [facility] Address [address] [place] [address] Care Team Providers Care Lot Attendant Name Role Phone Unknown, Provider Primary Care Provider Encounter Details Date Type Department Care Team (Late st Contact Info) Description 11/04/2020 Lab Requisition [facility] Pathology & Laboratory Medicine - [address] [address] Outr Resulting Lab, Provider Social History Tobacco [...] Surface Ag Negative Negative 11/05/2020 8:38 EDT [facility] Blood VENOUS BLOOD / Unknown 11/03/2020 14:36 EDT 11/04/2020 15:52 EDT Provider Outr Resulting Lab CHEMISTRY & BLOOD GAS ORDERABLES [facility] [address] [place] [address] * HEPATITIS C AB W REFLEX TO HCV RNA BY PCR (11/03/2020 14:36 EDT) Hep C Antibody Negative Negative 11/05/2020 9:21 EDT [facility] Blood VENOUS BLOOD / Unknown 11/03/2020 14:36 EDT 11/04/2020 15:52 EDT Provider Outr Resulting Lab CHEMISTRY & BLOOD GAS ORDERABLES [facility] [address] [place] [address] documented in this encounter Visit Diagnoses Not on filedocumented in this encounter Care Teams Lot Attendant Relationship Specialty Start Date End Date Unknown, Provider, PCP - General 04/25/15 documented as of this encounter
--- OUTSIDE RECORDS SUMMARY | 2024-02-27 15:12 | XMS_ITS | Encounter Summary ---
Author Organization [facility] Address [address] [place] [address] Care Team Providers Care White Washer Name Role Phone Unknown, Provider Primary Care Provider Encounter Details Date Type Department Care Team (Late st Contact Info) Description 03/11/2022 Lab Requisition [facility] Pathology & Laboratory Medicine - [address] [address] Outr Resulting Lab, Provider Social History Tobacco [...] H. Pylori Negative Negative 03/13/2022 14:41 EDT [facility] Feces SPECIMEN FROM RECTUM / Unknown 03/10/2022 9:09 EDT 03/12/2022 15:12 EDT Narrative [facility] - 03/13/2022 14:41 EDT Results were obtained with the Premier Alutiiq HpSA Plus RON. Provider Outr Resulting Lab MICROBIOLOGY - GENERAL ORDERABLES [facility] [address] [place] [address] documented in this encounter Visit Diagnoses Not on filedocumented in this encounter Care Teams White Washer Relationship Specialty Start Date End Date Unknown, Provider, PCP - General 04/25/15 documented as of this encounter
--- OUTSIDE RECORDS SUMMARY | 2024-02-27 15:12 | XMS_ITS | Clinical Summary ---
Author Organization [facility] Address [facility] [place] [address] Care Team Providers Care Sign Painter Apprentice Name Role Phone Tita Fabian Filiberto FUNG Primary Care Provider [phone] Allergies No known active allergies Medications Medication Sig Dispensed Refills Start Date End Date Status ondansetron (Zofran) 4 mg tablet Take 4 mg by mouth every 8 hours as needed for Nausea. Active aspirin 81 mg chewable tablet Take 81 mg by mouth daily. Active citalopram (CeleXA) 20 mg tablet Take 20 mg by mouth daily. Active vitamin 27 & qpojpch-ucnr-RH 60 mg iron-1 mg Tablet Take 1 tablet by mouth daily. Active levothyroxine (Synthroid) 150 mcg tablet Take 150 mcg by mouth daily. Active Immunizations Name Administration Dates Next Due Influenza [...] PAP Smear 2022 Covid-19 Vaccine ( - season) 2024 Influenza (Flu) vaccine (1 o f 1 - Influenza standard series) 02/17/2024 04/14/2016 Care Teams Sign Painter Apprentice Relationship Specialty Start Date End Date Tita Fabian, REEL WORKER PCP - General Family Medicine 09/24/23
--- OUTSIDE RECORDS SUMMARY | 2024-02-27 15:12 | XMS_ITS | Encounter Summary ---
Author Organization [facility] Address [address] [place] [address] Care Team Providers Care Nail Mill Worker Name Role Phone Unknown, Provider Primary Care Provider Encounter Details Date Type Department Care Team (Late st Contact Info) Description 06/05/2020 Lab Requisition [facility] Pathology & Laboratory Medicine - [facility] [address] [place] [address] Outr Resulting Lab, Provider Social History Tobacco [...] gonorrhoeae Result Negative Negative 06/07/2020 12:33 EST [facility] Chlamydia trachomatis Result Negative Negative 06/07/2020 12:33 EST [facility] Swab ENTIRE ENDOCERVIX / Unknown 06/04/2020 15:36 EST 06/06/2020 17:24 EST Provider Outr Resulting Lab MICROBIOLOGY - GENERAL ORDERABLES [facility] [address] [place] [address] documented in this encounter Visit Diagnoses Not on filedocumented in this encounter Care Teams Nail Mill Worker Relationship Specialty Start Date End Date Unknown, Provider, PCP - General 04/25/15 documented as of this encounter
--- OUTSIDE RECORDS SUMMARY | 2024-02-27 15:12 | XMS_ITS | Encounter Summary ---
Author Organization [facility] Address [address] [place] [address] Care Team Providers Care Assistant Fitness Manager Name Role Phone Unknown, Provider Primary Care Provider Encounter Details Date Type Department Care Team (Late st Contact Info) Description 11/26/2018 Results Only [facility] [phone] Mia Lozano, [address] [address] Social History Tobacco Use Types [...] ? JEANETTE MOISE ? Accession #: ? [id number] : ? 1990 (Age: 28) ??F ?Collect Date: ? 11/26/2018 Location: ? [facility] ? Receive Date: ? 11/27/2018 Provider: ?MIA LOZANO SECRETARIAL STENOGRAPHER Copy to: ?EMILIANO LESTER PAC ? Specimen/Source: ?Pap Test, Cervix, ThinPrep Imaging System with manual evaluation Last Menstrual Period: ? 11/13/18 ? SPECIMEN ADEQUACY ? Satisfactory for Evaluation - transformation zone component absent GENERAL CATEGORIZATION ? Negative for Intraepithelial Lesion or Malignancy ? Document reviewed and electronically signed by: ? KRYSTYNA Martinez(ASCP) ? Report Date: ??11/28/2018 12:45 End of Report [facility] 11/26/2018 11/27/2018 Mia Lozano SECRETARIAL STENOGRAPHER PATHOLOGY ORDERABLES [facility] [address] [place] [address] documented in this encounter Visit Diagnoses Not on filedocumented in this encounter Care Teams Assistant Fitness Manager Relationship Specialty Start Date End Date Unknown, Provider, PCP - General 04/25/15 documented as of this encounter
--- OUTSIDE RECORDS SUMMARY | 2024-02-27 15:12 | XMS_ITS | Encounter Summary ---
Author Organization [facility] Address [address] [place] [address] Care Team Providers Care Nuclear Officer Name Role Phone Unknown, Provider Primary Care Provider Encounter Details Date Type Department Care Team (Late st Contact Info) Description 09/17/2015 Results Only [facility] [phone] Mia Lozano, [address] [place] [address] Social History Tobacco Use Types [...] ? JEANETTE MOISE ? Accession #: ? [id number] : ? 1990 (Age: 25) ??F ?Collect Date: ? 09/17/2015 Location: ? [facility] ? Receive Date: ? 09/20/2015 Provider: ?MIA LOZANO MACHINE MOLDER SQUEEZE Copy to: ? Specimen/Source: ?Pap Test, Cervix/Endocervix, [...] Report Date: ??09/29/2015 12:08 End of Report [facility] 09/17/2015 09/20/2015 Mia Lozano MACHINE MOLDER SQUEEZE PATHOLOGY ORDERABLES Performing Organization Address City/State/[facility] Co de Phone Number [facility] [address] [place] [address] documented in this encounter Visit Diagnoses Not on filedocumented in this encounter Care Teams Nuclear Officer Relationship Specialty Start Date End Date Unknown, Provider, PCP - General 04/25/15 documented as of this encounter
--- OUTSIDE RECORDS SUMMARY | 2024-02-27 15:12 | XMS_ITS | Encounter Summary ---
Author Organization [facility] Address [address] [place] [address] Care Team Providers Care Supervisor Shaving And Splitting Name Role Phone Unknown, Provider Primary Care Provider Encounter Details Date Type Department Care Team (Late st Contact Info) Description 11/04/2020 Lab Requisition [facility] Pathology & Laboratory Medicine - [address] [address] Outr Resulting Lab, Provider Social History Tobacco [...] Ab Positive See Note 11/05/2020 11:57 EDT [facility] Comment:Presence of detectab le Varicella Zoster virus IgG antibodies. Blood VENOUS BLOOD / Unknown 11/03/2020 14:36 EDT 11/04/2020 15:52 EDT Provider Outr Resulting Lab IMMUNOLOGY A ND SEROLOGY ORDERABLES [facility] [address] [place] [address] * RUBELLA IGG ANTIBODY (11/03/2020 14:36 EDT) Rubella IgG Ab Positive See Note 11/05/2020 12:02 EDT [facility] Comment:Positive for IgG ant ibodies to Rubella virus. Blood VENOUS BLOOD / Unknown 11/03/2020 14:36 EDT 11/04/2020 15:52 EDT Provider Outr Resulting Lab CHEMISTRY & BLOOD GAS ORDERABLES [facility] [address] [place] [address] documented in this encounter Visit Diagnoses Not on filedocumented in this encounter Care Teams Supervisor Shaving And Splitting Relationship Specialty Start Date End Date Unknown, Provider, PCP - General 04/25/15 documented as of this encounter
--- OUTSIDE RECORDS SUMMARY | 2024-02-27 15:12 | XMS_ITS | Encounter Summary ---
Author Organization [facility] Address [address] [place] [address] Care Team Providers Care Track Laying Supervisor Name Role Phone Unknown, Provider Primary Care Provider [phone] Encounter Details Date Type Department Care Team (Late st Contact Info) Description 01/05/2021 Lab Requisition [facility] Pathology & Laboratory Medicine - [address] [address] Outr Resulting Lab, Provider Social History Tobacco [...] Quantiferon Interpretation Negative Negative 01/07/2021 12:42 EDT [facility] Comment: No interferon-gamma response [...] minus Nil 0.00 IU/ml 01/08/20 12:42 EDT [facility] TB2 Ag minus Nil 0.00 IU/mL 01/08/20 12:42 EDT [facility] Blood VENOUS BLOOD / Unknown 01/04/2021 12:13 EDT 01/05/2021 16:37 EDT Narrative [facility] - 01/07/2021 12:42 EDT Results were obtained with the Qiagen QuantiFERON-TB Gold Plus RON. Provider Outr Resulting Lab CHEMISTRY & BLOOD GAS ORDERABLES [facility] [address] [place] [address] documented in this encounter Visit Diagnoses Not on filedocumented in this encounter Care Teams Track Laying Supervisor Relationship Specialty Start Date End Date Unknown, Provider, PCP - General 04/25/15 documented as of this encounter
--- OUTSIDE RECORDS SUMMARY | 2024-02-27 15:12 | XMS_ITS | Encounter Summary ---
Author Organization [facility] Address [address] [place] [address] Care Team Providers Care Circular Head Saw Operator Name Role Phone Unknown, Provider Primary Care Provider Encounter Details Date Type Department Care Team (Late st Contact Info) Description 11/04/2020 Lab Requisition [facility] Pathology & Laboratory Medicine - [facility] [address] [place] [address] Outr Resulting Lab, Provider Social History Tobacco [...] 4th Generation Negative Negative 11/05/2020 9:42 EDT [facility] Comment: If acute HIV-1 infection is suspected in a high risk ??patient, submit plasma specimen for HIV-1 RNA quantitation test. Fourth Generation assay performed on the Siemens Red-M Groupaur. Blood VENOUS BLOOD / Unknown 11/03/2020 14:36 EDT 11/04/2020 15:52 EDT Provider Outr Resulting Lab IMMUNOLOGY A ND SEROLOGY ORDERABLES [facility] [address] [place] [address] documented in this encounter Visit Diagnoses Not on filedocumented in this encounter Care Teams Circular Head Saw Operator Relationship Specialty Start Date End Date Unknown, Provider, PCP - General 04/25/15 documented as of this encounter
--- OUTSIDE RECORDS SUMMARY | 2024-02-27 15:12 | XMS_ITS | Encounter Summary ---
Author Organization [facility] Address [address] [place] [address] Care Team Providers Care Wafer Fabrication Technician Name Role Phone Unknown, Provider Primary Care Provider [phone] Encounter Details Date Type Department Care Team (Late st Contact Info) Description 09/19/2023 Lab Requisition [facility] Pathology & Laboratory Medicine - [facility] [address] [place] [address] Outr Resulting Lab, Provider Social History Tobacco [...] 4th Generation Negative Negative 09/19/2023 19:00 EDT [facility] Comment:If acute HIV-1 infec tion is suspected in a high risk patient, submit plasma specimen for HIV-1 RNA quantitation test. Blood VENOUS BLOOD / Unknown 09/19/2023 11:05 EDT 09/19/2023 16:56 EDT Narrative [facility] - 09/19/2023 19:00 EDT Fourth Generation assay performed on the Siemens Centaur XPT. Provider Outr Resulting Lab IMMUNOLOGY A ND SEROLOGY ORDERABLES [facility] [address] [place] [address] documented in this encounter Visit Diagnoses Not on filedocumented in this encounter Care Teams Wafer Fabrication Technician Relationship Specialty Start Date End Date Unknown, Provider, PCP - General 04/25/15 documented as of this encounter
[2024-02-27 15:24] VITALS: BP 127/66; PULSE 77; TEMP 37.2
[2024-02-27 15:30] VITALS: BP 127/66; PULSE 77
--- NOTE | 2024-02-27 16:19 | PDOC.NST_ITS ---
Date of service: 02/27/24 Time of Service: 16:20 NST Evaluation Reason for NST Reasons for Nonstress Test: POLYHYDRAMNIOS Gestational Age Gestational Age in Weeks and Days: 34 Weeks and 0Days Test and Monitor Explained Test/Monitor Explained: Test Explained, Monitor Explained and Patient Verbalized Understanding Vital Signs Blood Pressure: 127/66 Pulse: 77 Temperature: 99.0 F NST Information Date on Monitor: 02/27/24 Time on Monitor: 15:18 Date off Monitor: 02/27/24 Time off Monitor: 15:48 Total Time on Monitor: 30 NST Interventions: None Contraction Frequency: None NST Evaluation Patient States Movement: Present FHR Baseline: 140 Variability: Moderate 6-25 bpm Accelerations: 15x15 Decelerations: None NST Results: Reactive Note Ultrasound Done: AUDRA (by Kimberly Salguero) Coding for AUDRA w/NST: Completed Exam. NST Note Note: Reactive NST POCUS exam by Nima salguero CNM for AUDRA which is WNL. RTO 1 week at [facility] NST Reviewed and Verified by: Lidia Cazares
[2024-02-27 16:21] VITALS: BP 127/66; PULSE 77; TEMP 37.2
--- NOTE | 2024-02-27 16:50 | W.OBNST ---
Date of service: 02/27/24 Time of Service: 16:50 NST Evaluation Reason for NST Reasons for Nonstress Test: POLYHYDRAMNIOS Gestational Age Gestational Age in Weeks and Days: 34 Weeks and 0Days Test and Monitor Explained Test/Monitor Explained: Test Explained, Monitor Explained and Patient Verbalized Understanding Vital Signs Blood Pressure: 127/66 Pulse: 77 Temperature: 99.0 F NST Information Date on Monitor: 02/27/24 Time on Monitor: 15:18 Date off Monitor: 02/27/24 Time off Monitor: 15:48 Total Time on Monitor: 30 NST Interventions: None Contraction Frequency: None NST Evaluation Patient States Movement: Present FHR Baseline: 140 Variability: Moderate 6-25 bpm Accelerations: 15x15 Decelerations: None NST Results: Reactive Note Ultrasound Done: AUDRA Indication: Polyhydraminos Total AUDRA: 16 Other Pertinent Findings: Heart Rate (143), Presentation (cephalic) and Placental Location (anterior) Coding for AUDRA w/NST: Completed Exam. NST Note NST Reviewed and Verified by: Linnette Villagran
[2024-02-27 16:51] VITALS: BP 127/66; PULSE 77; TEMP 37.2
== END 2024-02-27 16:18 | disposition home or self-care (01) ==
LOC: BCD 15:14 → OBS 15:20
PROVIDERS: PCP Nurse Practitioner Family; Visit Provider Advanced Practice Midwife
DX: O40.3XX0 Polyhydramnios, third trimester, not applicable or unspecified (principal); Z3A.34 34 weeks gestation of pregnancy
CPT/HCPCS: 59025; 76815; G0378

== ENCOUNTER 2024-03-12 14:11 | Outpatient (CLI) | payer BC, SELFPAY ==
[2024-03-12 15:03] VITALS: BP 129/72; PULSE 74
[2024-03-12 15:09] VITALS: BP 129/72; PULSE 74; TEMP 36.5
[2024-03-12 15:31] VITALS: BP 137/65; PULSE 68
[2024-03-12 15:48] LABS: HCT 29.1 % (36.0-46.0); HGB 9.2 g/dL (11.2-15.7); MCH 25.1 pg (27.0-33.0); MCHC 31.6 % (32.0-36.0); MCV 80 fL (80-95); MPV 8.6 fL (8.0-11.0); Platelet Count 230 10^3/uL (130-400); RBC 3.66 10^6/uL (3.93-5.22); RDW 14.8 % (11.7-14.6); RDW-SD 42.6 fL; WBC 9.22 10^3/uL (4.4-10.8)
[2024-03-12 15:59] LABS: COMMENT (LAB VIEW ONLY) 128.48 mg/dL; PROTEIN 22.8 mg/dL; Prot/Crea Ur Ratio 0.17
[2024-03-12 16:06] LABS: ALT 18 U/L (14-59); AST 16 U/L (15-37); Albumin 2.3 g/dL (3.4-5.0); Alkaline Phosphatase 119 U/L (46-116); Anion Gap 9.7 mmol/L (3-11); BUN 6 mg/dL (7-18); CO2 23.3 mmol/L (21.0-32.0); CREATININE 0.7 mg/dL (0.55-1.02); Calcium 8.9 mg/dL (8.5-10.1); Chloride 100 mmol/L (98-107); Estimated GFR 118.51 (mL/min/1.73m2); Glucose 99 mg/dL (74-106); Potassium 3.8 mmol/L (3.5-5.1); Sodium 133 mmol/L (136-145); Total Protein 6.6 g/dL (6.4-8.2); Uric Acid 4.9 mg/dL (2.6-6.0)
[2024-03-12] MEDS: IRON SUCROSE COMPLEX 200 MG in Normal Saline 100 ML 400 MG IVPB (16:58)
[2024-03-12] MEDS: Normal Saline Flush 10 ML SYR IVP (17:00)
--- NOTE | 2024-03-12 17:36 | W.OBNST ---
Date of service: 03/12/24 Time of Service: 17:36 NST Evaluation Reason for NST Reasons for Nonstress Test: OTHER, SEE COMMENT Gestational Age Gestational Age in Weeks and Days: 36 Weeks and 0Days Test and Monitor Explained Test/Monitor Explained: Test Explained, Monitor Explained and Patient Verbalized Understanding Vital Signs Blood Pressure: 129/72 Pulse: 74 Temperature: 97.7 F Urine Results Urine Protein: Positive Urine Ketones: Negative Urine Glucose: Negative Urine Blood: Negative NST Information Date on Monitor: 03/12/24 Time on Monitor: 14:56 Date off Monitor: 03/12/24 Time off Monitor: 15:21 Total Time on Monitor: 25 NST Interventions: PO Hydration and Notify Provider Contraction Frequency: 5 NST Evaluation Patient States Movement: Present FHR Baseline: 135 Variability: Moderate 6-25 bpm Accelerations: 15x15 Decelerations: None NST Results: Reactive Note Ultrasound Done: N/A. NST Note Note: Jeanette had elevated BP at her workplace today and was concerned that she may be developing preeclampsia. Preeclampsia labs WNL. urine dip trace protein. Hgb 9.2 and venofer 200 mg infusion provided. Follow up at [facility] and will recheck HGb at next visit. NST Reviewed and Verified by: Lidia Cazares
[2024-03-12 17:38] VITALS: BP 129/72; PULSE 74; TEMP 36.5
== END 2024-03-12 17:25 ==
LOC: BCD 14:13 → OBS 14:51
PROVIDERS: PCP Nurse Practitioner Family; Visit Provider Advanced Practice Midwife
DX: O09.293 Supervision of pregnancy with other poor reproductive or obstetric history, third trimester (principal); R03.0 Elevated blood-pressure reading, without diagnosis of hypertension; Z3A.36 36 weeks gestation of pregnancy
CPT/HCPCS: 59025; 80053; 85027; 96365; 82565; 84156; 84550; J1756

== ENCOUNTER 2024-03-13 02:19 | Outpatient (CLI) | payer BC, SELFPAY ==
--- NOTE | 2024-03-13 07:15 | DI.US_ITS ---
Exam(s) US OB AUDRA WEIGHT EXAM: US OB AUDRA WEIGHT CLINICAL HISTORY: audra,efw,polyhydramnios,large for gest age,036.60x0. TECHNIQUE: Transabdominal obstetrical ultrasound performed. COMPARISON: US US OB AUDRA WEIGHT from 02/14/2024 US POCUS EXAM from 02/27/2024 FINDINGS: Number of fetuses: 1 position: CEPHALIC Placental location: There is a grade 2 anterior placenta. No evidence of previa. BIOMETRIC DATA: BPD: 9.23cm, 37weeks 3days HC: 33.11cm, 37weeks 5days AC: 33.89cm, 37weeks 6days FL: 7.38cm, 37weeks 5days EFW: 3,295.74g, 7lb 4.05oz, 89.4% Composite Age: 37weeks 5days MESERET: 03/29/2024 Heart Rate: 151bpm Amniotic fluid index: 26.06cm. The largest pocket is 7.8 cm. IMPRESSION: 1. Single live intrauterine gestation as above. 2. Estimated weight is 3296gms. This is the 89th percentile. 3. Amniotic fluid index is 26.1 cm. The largest pocket is 7.8 cm. DATA REPOSITORY:
== END 2024-03-13 02:39 ==
LOC: DI 02:19
PROVIDERS: PCP Nurse Practitioner Family; Visit Provider Advanced Practice Midwife
DX: O40.3XX0 Polyhydramnios, third trimester, not applicable or unspecified (principal); Z3A.37 37 weeks gestation of pregnancy
CPT/HCPCS: 76816

== ENCOUNTER 2024-03-13 13:38 | Outpatient (REF) | payer BC, SELFPAY | END 2024-03-13 13:39 | disposition home or self-care (01) | LOC: LBN 13:38 | PROVIDERS: PCP Nurse Practitioner Family; Visit Provider Advanced Practice Midwife | DX: Z34.93 Encounter for supervision of normal pregnancy, unspecified, third trimester (principal) | CPT/HCPCS: 87081 ==

== ENCOUNTER 2024-03-21 07:22 | Outpatient (CLI) | payer BC, SELFPAY ==
[2024-03-21 13:35] VITALS: BP 131/76; PULSE 90; TEMP 36.8
[2024-03-21 14:04] LABS: HCT 30.9 % (36.0-46.0); HGB 9.7 g/dL (11.2-15.7); MCH 25.6 pg (27.0-33.0); MCHC 31.4 % (32.0-36.0); MCV 82 fL (80-95); MPV 8.7 fL (8.0-11.0); Platelet Count 203 10^3/uL (130-400); RBC 3.79 10^6/uL (3.93-5.22); RDW 16.3 % (11.7-14.6); RDW-SD 45.5 fL; WBC 9.56 10^3/uL (4.4-10.8)
--- NOTE | 2024-03-21 15:01 | W.OBNST ---
Date of service: 03/21/24 Time of Service: 15:01 NST Evaluation Reason for NST Reasons for Nonstress Test: POLYHYDRAMNIOS Gestational Age Gestational Age in Weeks and Days: 37 Weeks and 2Days Test and Monitor Explained Test/Monitor Explained: Test Explained Vital Signs Blood Pressure: 131/76 Pulse: 90 Temperature: 98.2 F Urine Results Urine Protein: Negative Urine Ketones: Negative Urine Glucose: Negative Urine Blood: Negative NST Information Date on Monitor: 03/21/24 Time on Monitor: 13:40 Date off Monitor: 03/21/24 Time off Monitor: 14:05 Total Time on Monitor: 25 NST Interventions: None Contraction Frequency: irregular NST Evaluation Patient States Movement: Present FHR Baseline: 145 Variability: Moderate 6-25 bpm Accelerations: 15x15 Decelerations: None NST Results: Reactive Note Ultrasound Done: AUDRA Indication: Polyhydraminos Total AUDRA: 25.1 Other Pertinent Findings: Heart Rate (141), Presentation (cephalic, LOP) and Placental Location (anterior) Coding for AUDRA w/NST: Completed Exam. NST Note Note: Cvx ft/50%, posterior, soft, vtx -4 (Moss score=3) Intact membranes Receiving 2nd iron infusion today RTO 1 week for repeat AUDRA & iron infusion Planning for IOL @ 39 wks NST Reviewed and Verified by: Linnette Villagran
[2024-03-21 15:04] VITALS: BP 131/76; PULSE 90; TEMP 36.8
[2024-03-21] MEDS: IRON SUCROSE COMPLEX 200 MG in Normal Saline 100 ML 400 MG IVPB (15:07)
== END 2024-03-21 15:19 ==
LOC: BCD 07:28 → OBS 13:01
PROVIDERS: PCP Nurse Practitioner Family; Visit Provider Advanced Practice Midwife
DX: O40.3XX0 Polyhydramnios, third trimester, not applicable or unspecified (principal); O99.013 Anemia complicating pregnancy, third trimester; Z3A.36 36 weeks gestation of pregnancy
CPT/HCPCS: 59025; 76815; 36415; 85027; J1756

== ENCOUNTER 2024-03-27 09:08 | Outpatient (CLI) | payer BC, SELFPAY ==
[2024-03-27 09:58] VITALS: BP 128/71; PULSE 75; TEMP 36.9
[2024-03-27 11:04] LABS: HCT 32.5 % (36.0-46.0); HGB 9.9 g/dL (11.2-15.7); MCH 25.2 pg (27.0-33.0); MCHC 30.5 % (32.0-36.0); MCV 83 fL (80-95); MPV 8.7 fL (8.0-11.0); Platelet Count 227 10^3/uL (130-400); RBC 3.93 10^6/uL (3.93-5.22); RDW 18.3 % (11.7-14.6); RDW-SD 49.2 fL
--- NOTE | 2024-03-27 11:51 | W.OBNST ---
Date of service: 03/27/24 Time of Service: 11:51 NST Evaluation Reason for NST Reasons for Nonstress Test: POLYHYDRAMNIOS Gestational Age Gestational Age in Weeks and Days: 38 Weeks and 1Days Test and Monitor Explained Test/Monitor Explained: Test Explained, Monitor Explained and Patient Verbalized Understanding Vital Signs Blood Pressure: 128/71 Pulse: 75 Temperature: 98.4 F NST Information Date on Monitor: 03/27/24 Time on Monitor: 09:19 Date off Monitor: 03/27/24 Time off Monitor: :09 Total Time on Monitor: 50 NST Interventions: None Contraction Frequency: 6-16 NST Evaluation Patient States Movement: Present FHR Baseline: 135 Variability: Moderate 6-25 bpm Accelerations: 15x15 Decelerations: None NST Results: Reactive Note Ultrasound Done: AUDRA Indication: Polyhydraminos Total AUDRA: 25 Coding for AUDRA w/NST: Completed Exam and Presentation (cephalic) Coding for Presentation w/NST: Completed Exam. NST Note Note: IV iron 200 mg given today RTO on 04/02 for IOL for polyhydramnios NST Reviewed and Verified by: Linnette Villagran
[2024-03-27 11:53] VITALS: BP 128/71; PULSE 75; TEMP 36.9
[2024-03-27] MEDS: Normal Saline Flush 10 ML SYR IVP (12:00)
[2024-03-27] MEDS: IRON SUCROSE COMPLEX 200 MG in Normal Saline 100 ML 400 MG IVPB (12:05)
== END 2024-03-27 12:24 ==
LOC: BCD 09:08 → OBS 09:54
PROVIDERS: PCP Nurse Practitioner Family; Visit Provider Advanced Practice Midwife
DX: O40.3XX0 Polyhydramnios, third trimester, not applicable or unspecified (principal); Z3A.38 38 weeks gestation of pregnancy
CPT/HCPCS: 59025; 76815; 36415; 85027; 96365; J1756

== ENCOUNTER 2024-04-01 23:36 | Inpatient (IN) | payer BC, SELFPAY ==
--- NOTE | 2024-04-01 23:38 | HPE_ITS ---
Date of service: 04/01/24 Time of Service: 23:38 Assessment and Plan Assessment and plan (1) Normal labor: Status: Acute Assessment and plan: A: 34 yo (36 wk vaginal twins) @ 39 wks, spontaneous onset labor Mild polyhydramnios noted on ultrasound in third trimester, nml 3 hr GTT Weekly NST's and AUDRA monitoring were reassuring and stable, AUDRA @ 24-26 Category 1 tracing, GBS+, low risk for SD, moderate risk PPH due to poly P: Admit to BC, T&S and CBC, initiate IV access PROCEDURE WRITER paged for epidural request PCN for GBS prophylaxis Anticipate (2) Polyhydramnios affecting in third trimester: Status: Acute OB-HPI Labor/Delivery History of Present Illness Reason for Visit: term labor Chief Complaint: Uterine Contractions (became more intense this evening). MESERET Calculator Estimated Delivery Date Method Current WG Current Estimate 04/09/24 LMP (Certain) 39w 0d Other Estimates 04/08/24 Ultrasound #1 39w 1d Comments: Scheduled for 39 wk IOL this morning, admittted in spontaneous onset active labor History of Present Expected Delivery Route/Plan - CNM FOB - Jhon David (2nd preg together, previous child who he doesn't see) BG Hopes to avoid epidural but OK if needs one GBS POSITIVE - plan PCN prophylaxis during labor IOL for poly booked for 04/02/24 (39 wks) Specific Issues/Plan 1. Hx Pre-eclampsia, start low dose ASA @ 12 wks, CMP nml, prot/creat ratio: 0.08 2. Hx accreta spectrum stage 1, [facility] level 2 11/21/23: normal anatomy, no evidence of accreta seen 3. Hx depression, takes citolopram 40 mg qd 4. BMI 31 and hx GDM, early glucola 120, 28 weeks- 178, 3-hr GTT: 5. Hypothyroidism, levothyroxine 150 mcg, TSH 1.81 in first trimester, 1.76 at 30 weeks 6. Hx anemia of , assure daily iron supplementation 6a. Hgb 10.2 at 30 weeks, encouraged to take vit with iron daily. Hgb 9.2-Iron infusion ordered 6b. Hgb at 37 wks is 9.7, continue weekly iron infusions 7. cfDNA low risk x5 female, CF and SMA declined 8. 5-P screen negative 9. Low back pain - PT in past . Declines PT now. Assessment: History Reviewed & Current Informed Consent Informed Consent: Regional Anesthesia and Risk,Benefits,Alternatives Discussed Review of Systems Narrative: ROS completed and noncontributory other than HPI PFSH All Active Problems (Updated 04/01/24 @ 23:44 by Linnette Villagran) Normal labor (Acute) Large for gestational age fetus affecting management of mother (Acute) Polyhydramnios affecting in third trimester (Acute) borderline, AUDRA 24.3 at 32 wks Anemia affecting (Acute) Cholelithiasis (Acute) (Acute) Medical History (Updated 04/01/24 @ 23:44 by Linnette Villagran) Nausea and vomiting during prior to 22 weeks gestation Early stage of History of pre-eclampsia in prior , currently in first trimester Chronic abdominal pain hyda scan and abdominal US and Cat scan neg History of placenta accreta Found on path evaluation of placenta. No complication during delivery. Vaginal delivery 05/05/2021. Di/Di twin gestation. No complications Hip pain Gestational diabetes Depression citalopram 40 mg daily Hypothyroid (04/21/14) Surgical History Appendectomy Age 11yrs Family History Mother Alzheimers disease Father Diabetes Hyperlipidemia Thyroid disorder hypothyroid Grandmother Lung cancer maternal Diabetes Grandmother Breast cancer paternal Diabetes Sister Thyroid disorder hyperthyroid, resolved after Social History Smoking/Tobacco Use Status: Former Tobacco Use Quit Date: 05/18/20 Tobacco: How many years used: 12 Quit status: has quit before Smoking risk assessment performed?: Yes Alcohol Intake: never Drug use: Never Substance use type: does not use Household members: significant other, children and other Details: S- Baby boy Noel [place]. Baby boy Eric Hill Number of Children: 1 Education Level: college current occupation: Nurse at [employer] Do you feel safe at home: Yes Do you feel safe in your relationship?: Yes History History 2 Para 1 Hx # Term Pregnancies 0 Multiple births 1 Hx # Pregnancies 1 Ectopic pregnancies 0 AB induced 0 Hx Number of Living Children 2 AB spontaneous 0 Past Pregnancies Del. Date GA/Weeks # Preg Succ Route Wgt Sex Labor Lgth Anesth esia Location Prov Complic 05/05/21 36 Yes Yes vaginal 5 lb 9.5 oz Male 22 hrs regional [facility] - Dr. King 05/05/21 36 Yes Yes vaginal 5 lb 15 oz Male 22 hrs regional Delivery Date: 05/05/21 Last Updated by: Lidia Cazares CNM IOL for pre-eclampsia and diet controlled GDM [place] Placenta accreta spectrum stage 1 on placental pathology Delivery Date: 05/05/21 Last Updated by: Linnette Hill Meds Allergies and Home Medications Allergies Allergy/AdvReac Type Severity Reaction Status Date / Time No Known Drug Allergies Allergy n/a Verified 03/13/24 12:53 Home Medications ?Medication ?Instructions ?Recorded ?Confirmed ?Type citalopram 20 mg tablet 40 mg (2 x 20 mg) PO DAILY #120 08/01/23 03/27/24 Rx tabs vits 75-iron 28 mg-folic pkg PO 08/01/23 03/27/24 History acid 800 mcg-omega-3 oral combo pack (One A Day Women's DHA) levothyroxine 150 mcg tablet 150 mcg PO DAILY #90 tabs 08/08/23 03/27/24 Rx (Levoxyl) aspirin 81 mg tablet,delayed 81 mg PO DAILY 08/30/23 03/27/24 History release Exam Physical Exam Vital Signs Reviewed: Yes Narrative: single elevated BP noted on admission, taken during contraction while standing, will monitor Constitutional Constitutional: moderate distress, obese and cooperative Detailed Labor and Delivery Exam Dilation: 6 Effacement (%): 10 station: -1 Cervix position: anterior Consistency: soft Amniotic Membrane Status: Intact Contraction Frequency(min): q2-3 Fetus A Heart Rate Baseline: 140 Monitor Accelerations: Present Monitor Decelerations: None Variability: Moderate (6-25 BPM) Categories: Category I Est. Weight: 8 lb 6.041 oz Est. Weight: 3800 gms HEENT Exam HEENT Exam: Normal Neck Exam Neck Exam: Normal Chest/Brest/Axilla Exam Chest Exam: Normal Breast Exam Breast Exam: Not Done Respiratory Exam Respiratory Exam: Normal Cardiovascular Exam Cardiovascular Exam: Normal Abdominal Exam Abdominal Exam: Normal (Gravid, nontender) Rectal Exam Rectal Exam: Normal Exam Exam: Normal Extremities Exam Extremities Exam: Normal Back/Spine/Pelvis Exam Back Exam: Normal Pelvis Adequate: Yes Skin Exam Skin Exam: Normal Neurological Exam Neurological Exam: Normal Psychiatric Exam Psychiatric Exam: Normal Results Results Group Beta Strep: Positive Blood Type: O+ Rubella Status: Immune Varicella Immunity: Immune Lab Results: 3 hr GTT @ 33 wks was nml x4 Risk Assessment Risk for Shoulder Dystocia Historical/Initial OB: NEGATIVE FOR: Pelvic Abnormality, Pre- BMI>30, Previous Shoulder Dystocia or Previous Macrosomia 36 Weeks: NEGATIVE FOR: Current Gestational DM, EFW>4500gms or Maternal Weight Gain>40lbs Increased Risk?: No Delivery Plan @ 36wks: Risk for Pre-Eclampsia Date Initiated/Initials: start at 12 wks. JK Yes, if one or more: POSTIVE FOR: Hx Pre-E/Gest HTN; NEGATIVE FOR: Chronic HTN, Multiple Gestation, Pre-gestational DM, Renal Disease, Systemic Lupus or APA Syndrome Yes, if 2 or more: POSITIVE FOR: BMI>30; NEGATIVE FOR: Nulliparity, Age>= 35 yrs, >10yr btwn pregnancies, ethinicty, Mother/Sister w/ Pre-E or Previous IUGR Risk for Post- Hemorrhage Initial: NEGATIVE FOR: Multiple Gestation, Previous PPH, Known Clotting Deficiency, Grand Multiparity or Anticoagulation 36 Weeks: NEGATIVE FOR: Anemia, hgb<10, Low platelets(thrombocytopenia), Gestational HTN or Pre-E, Polyhydraminios or EFW>4500gms At Risk?: No Counseled re: Active Management: Yes Risks Reviewed Risks Reviewed Upon Admission: Yes
[2024-04-01 23:45] VITALS: BP 136/77; PULSE 82; RESP 18; TEMP 36.9; O2SAT 98
[2024-04-01 23:52] VITALS: BP 161/89; PULSE 93
[2024-04-02] VITALS (41 sets, daily range): BP systolic 106–173; BP diastolic 53–90; PULSE 70–104; RESP 12–18; TEMP 36.6–37.3; O2SAT 95–100; BMI 34.4
[2024-04-02 00:09] LABS: HCT 34.7 % (36.0-46.0); HGB 10.7 g/dL (11.2-15.7); MCH 25.5 pg (27.0-33.0); MCHC 30.8 % (32.0-36.0); MCV 83 fL (80-95); MPV 9.1 fL (8.0-11.0); Platelet Count 218 10^3/uL (130-400); RBC 4.19 10^6/uL (3.93-5.22); RDW 19.6 % (11.7-14.6); RDW-SD 56.7 fL; WBC 10.64 10^3/uL (4.4-10.8)
[2024-04-02] MEDS: Lactated Ringers 250 ML 500 ML IV (00:10)
[2024-04-02] MEDS: FentaNYL/ROPIvacaine 2 mcg/ml and 0.1% 200 ML CADD Cassette EP (00:22)
--- NOTE | 2024-04-02 00:35 | W.ANESNEU ---
Epidural/Spinal Catheter Date Performed: 04/02/24 Procedure Start: 00:17 Procedure Stop: 00:29 Requesting Provider: Linnette Villagran Procedure Location: Obstetrics Reason Performed: Labor Epidural Standard Monitors Applied: Blood Pressure, SpO2 and See EMR for corresponding vital signs Patient Position: Sitting Sedation Given (Indicate Dose Given): No Sedation given Patient Mental Status: Awake Sterility: Hand Hygiene, Surgical Cap, Surgical Mask, Sterile Gloves, Sterile Drape/Sheet, Sterile Gown and Chlorhexidine Procedure Location: L3-L4 Interspace Epidural Needle: Tuohy 18 Gauge Needle Length: 3.5 Inch Needle Approach: Midline Epidural Procedure: Skin Prepped, Sterile Drape Placed, 1% Lidocaine to skin and subcutaneous tissue with 25G needle, Tuohy Needle placed, DANISH to Saline Used, Epidural Catheter Placed, Negative Heme, Negative CSF Flow and Tuohy Needle Removed Catheter Placed?: Catheter Placed Test Dose (Indicate Dose Given): 5ml 1.5% Lidocaine with 1:200K Epinephrine Given and Negative Test Dose Loss of Resistance Depth (cm): 6 Catheter depth at skin (cm): 12 Dressing: Tegaderm Applied, Mastisol Used and Dressing reinforced with Tape Epidural Provider Bolus (Indicate Dose Given): Total bolus dose given in 3-5 ml divided doses and Total Ropivacaine 0.1% with Fentanyl 2mcg/ml Given from pump. (ml) Dose:: 8ml Additives (Indicate Dose Given ): None Infusion Medication: Medication Infusion Began Medication Infusion: Ropivacaine 0.1% with Fentanyl 2mcg/ml Maintenance Infusion Rate (ml/hour): 10 PCEA Bolus Dose (ml): 5 Block Level: T7 Paresthesia: None Ultrasound: Used to [email or web address] site Number of Attempts (See previous attempts in note section): 1 Procedure Tolerated: No Complications and Patient tolerated well Procedure Outcome: Successful Performed By: Alfred Escudero Supervised By: Hilario Sage
--- NOTE | 2024-04-02 00:38 | ANES.PREOP_ITS ---
General Info Date of Service Date Performed: 04/02/24 Height: 5 ft 10 in Weight: 109 kg Body Mass Index (BMI): 34.4 Meds Allergies and Home Medications Allergies Allergy/AdvReac Type Severity Reaction Status Date / Time No Known Drug Allergies Allergy n/a Verified 03/13/24 12:53 Home Medication ?Medication ?Instructions ?Recorded citalopram 20 mg tablet 40 mg (2 x 20 mg) PO DAILY #120 08/01/23 tabs vits 75-iron 28 mg-folic pkg PO 08/01/23 acid 800 mcg-omega-3 oral combo pack (One A Day Women's DHA) levothyroxine 150 mcg tablet 150 mcg PO DAILY #90 tabs 08/08/23 (Levoxyl) aspirin 81 mg tablet,delayed 81 mg PO DAILY 08/30/23 release Current Visit Medications: Current Medications Generic Name Dose Route Start Last Admin Trade Name Freq PRN Reason Stop Dose Admin Citalopram Hydrobromide 40 mg 04/02/24 08:30 Citalopram 20 Mg Tab PO DAILY [facility] Penicillin G Potassium 3,000, 50 mls @ 100 mls/hr 04/01/24 04:00 000 units/ Sodium Chloride IVPB Q4H ALYSA IV Miscellaneous Supplies 1 each 04/01/24 23:45 Iv Access IV DIRECTED ALYSA Levothyroxine Sodium 150 mcg 04/02/24 06:00 Levothyroxine 150 Mcg Tab PO 0600 ALYSA Sodium Chloride 0 ml 04/01/24 23:36 Normal Saline Flush 10 Ml Syr IVP PRN PRN Sodium Chloride 0 ml 04/02/24 08:30 Normal Saline Flush 10 Ml Syr IVP BID ALYSA Sodium Chloride 0 ml 04/01/24 23:36 Normal Saline 10 Ml Vial IJ DIRECTED PRN PFSH Active Problems Active Problems: Problem Status Onset Code Normal labor Acute O80, Z37.9 Large for gestational age fetus affecting management of mother Acute O36.60X0 Polyhydramnios affecting in third trimester Acute O40.3XX0 Anemia affecting Acute O99.019 Cholelithiasis Acute K80.20 Acute Z34.90 Medical History Medical History (Updated 04/01/24 @ 23:44 by Linnette Villagran) Nausea and vomiting during prior to 22 weeks gestation Early stage of History of pre-eclampsia in prior , currently in first trimester Chronic abdominal pain hyda scan and abdominal US and Cat scan neg History of placenta accreta Found on path evaluation of placenta. No complication during delivery. Vaginal delivery 05/05/2021. Di/Di twin gestation. No complications Hip pain Gestational diabetes Depression citalopram 40 mg daily Hypothyroid (04/21/14) Surgical History Surgical History Appendectomy Age 11yrs Tobacco Smoking/Tobacco Use Status: Former Tobacco Use Passive smoking exposure: No Alcohol Alcohol Intake: never Substance Use Substance use: Never Substance use type: does not use Prental History History 2 2 Para 1 Hx # Term Pregnancies 0 Multiple births 1 Hx # Pregnancies 1 Ectopic pregnancies 0 AB induced 0 Hx Number of Living Children 2 AB spontaneous 0 Past Pregnancies Del. Date GA/Weeks # Preg Succ Route Wgt Sex Labor Lgth Anesth esia Location Prov Complic 05/05/21 36 Yes Yes vaginal 2537.282 g Male 22 hrs regional [facility] - Dr. King 05/05/21 36 Yes Yes vaginal 2693.205 g Male 22 hrs regional Delivery Date: 05/05/21 Last Updated by: Lidia Cazares CNM IOL for pre-eclampsia and diet controlled GDM Yao Placenta accreta spectrum stage 1 on placental pathology Delivery Date: 05/05/21 Last Updated by: Linnette Hill Vital Signs and Lab Results Vital Signs Most Recent Vital Signs in EMR: Most Recent Vital Signs Pulse BP Pulse Ox 102 H 138/70 99 04/02/24 00:33 04/02/24 00:26 04/02/24 00:33 Lab Results 04/01/24 23:45 Blood Type / Crossmatch: 2 No Data to Display Complete Blood Count: 2 White Blood Count 10.64 10^3/uL (4.4-10.8) 04/01/24 23:45 Red Blood Count 4.19 10^6/uL (3.93-5.22) 04/01/24 23:45 Hemoglobin 10.7 g/dL (11.2-15.7) L 04/01/24 23:45 Hematocrit 34.7 % (36.0-46.0) L 04/01/24 23:45 Platelet Count 218 10^3/uL (130-400) 04/01/24 23:45 Complete Metabolic Panel: 2 Sodium 133 mmol/L (136-145) L 03/12/24 15:40 Potassium 3.8 mmol/L (3.5-5.1) 03/12/24 15:40 Chloride 100 mmol/L (98-107) 03/12/24 15:40 Carbon Dioxide 23.3 mmol/L (21.0-32.0) 03/12/24 15:40 BUN 6 mg/dL (7-18) L 03/12/24 15:40 Creatinine 0.7 mg/dL (0.55-1.02) 03/12/24 15:40 Est GFR (CKD-EPI 2020) 118.51 (mL/min/1.73m2) 03/12/24 15:40 Calcium 8.9 mg/dL (8.5-10.1) 03/12/24 15:40 Albumin 2.3 g/dL (3.4-5.0) L 03/12/24 15:40 Glucose 99 mg/dL (74-106) 03/12/24 15:40 Liver Function Panel: 2 Alanine Aminotransferase (ALT/SGPT) 18 U/L (14-59) 03/12/24 15: 40 Aspartate Amino Transf (AST/SGOT) 16 U/L (15-37) 03/12/24 15:40 Coagulation Panel: 2 No Data to Display Cardiac Panel: 2 No Data to Display Arterial Blood Gas: 2 No Data to Display Venous Blood Gas: 2 No Data to Display Pancreas Panel: 2 No Data to Display Thyroid Panel: 2 No Data to Display Infectious Disease: 2 No Data to Display Blood Cultures: 2 No Data to Display Toxicology Panel: 2 No Data to Display Panel: 2 No Data to Display Imaging and Studies Imaging and Studies Study information below may be from another EMR and interpreted by another provider. Please see original notes in EMR for more complete details. Pulmonary Function Summary: 2013: normal PFTs Anesthesia Assessment and Plan Anesthesia History Personal History: No History of Anesthesia Complications Family History: No Family History of Anesthesia Complications Exercise Tolerance Exercise Tolerance: Metabolic Equivalents>4 Pertinent Negatives Pertinent Negatives: No Symptoms of GERD Cardiac & Pulmonary Exam Cardiac Exam: Normal S1/S2 Heart Sounds Pulmonary Exam: Clear Bilateral Breath Sounds Implantable Cardiac Device Does patient have a Pacemaker or an ICD?: No Airway Exam Known Difficult Airway: No Mallampati Class: 2 Mouth Opening: Narrow (< 3cm) Thyromental Distance: Greater than 3 cm Neck Range of Motion: Full ROM Neck Circumference: Thick Teeth Condition: Normal Dentition ASA Classification ASA Score: ASA 2 Emergency Case?: No NPO Status NPO Status: NPO Clear Liquids>2 hours Status Status: Confirmed Anesthesia Plan Resuscitation Status: Full Code Anesthesia Technique: Labor Epidural Airway Planned: Natural Airway Pain Management: Epidural Monitors Used: Standard Monitors
--- NOTE | 2024-04-02 07:38 | OBVDS_ITS ---
Date of service: 04/02/24 Time of Service: 07:38 OB Labor/ Delivery Information Baby A Delivery Delivery Method: Spontaneaous Presentation: Cephalic Cephalic Position: Vertex Vertex Position: Right Occipital Anterior Breech Position: N/A Cord Description-Baby A: 3 Vessels and Clamped/Cut Amniotic Fluid: Meconium Estimated Blood Loss: QBL 200 Delivery Outcome: Liveborn Transferred: Remains with Mother Note: Upon arrival in the pt received IV access, 1st dose of PCN and epidural anesthesia which provided a bried period of relief from painful contractions but shortly pt reported rapidly increasing sensations of pelvic pressure, found to be fully dilated with large forebag of fluid at the perineum and head @ +2 station, AROM for large amount meconium stained fluid and 2nd stage huddle completed. FSE was attached due to decels per external EFM and difficulty in following FHT's. Pt's legs were supported in Kristen position as head rapidly descended and crowned, of vigorous female infant over intact perineum accomplished, shoulders delivered smoothly with gentle but steady traction and excellent maternal effort, to mother's arms immediately, pitocin bolus begun, cord ceased pulsating and clamped then cut by FOB, cord blood collected, [place] placenta delivered intact with 3VC, fundus firm below umbilicus and minimal rubra noted, vulva/vagina inspected and found to be without laceration. appears LGA and received apgars of 6/8, was placed in warmer for additional stimulation and blowby oxygen for a few minutes as she was not crying but remained pink, flexed and breathing normally, HR>120 so returned to mother's arms by 5 minutes of age. Strong family bonding observed, weight 4435 gms., baby latched and by 30 minutes of age. Providers Nurse Fuel Cell Battery Technician: Linnette Villagran [employer] Clerk: Hilario Sage Nurse: Ruby Andrews Nurse: Ronda Ku Other: [place] Labor/Delivery Information Number of Babies in Womb: 1 Steroids Given: None Reason Steroids Not Administered: N/A Group Beta Strep: Positive Antibiotics Administered: Yes Number of Doses of Antibiotics: 1 Rubella Status: Immune Blood Type: O+ Varicella Immunity: Immune Medication in Delivery: nitrous Shoulder Dystocia: No Stages of Labor Onset of Labor Date: 03/31/24 Onset of Labor Time: 21:00 Complete Dilatation Date: 04/02/24 Complete Dilatation Time: 00:41 Labor - Stage 1 Duration: 27 hours and 41 minutes ROM Baby A: 04/02/24 ROM Baby A: 00:45 ROM Total Time- Baby A: [id number] Infant Delivery Date-Baby A: 04/02/24 Infant Delivery Time-Baby A: 00:47 Labor Stage 2 Duration: 6 minutes Placenta Delivery Date-Baby A: 04/02/24 Placenta Delivery Time-Baby A: 00:54 Labor-Stage 3 Duration: 7 minutes Total Length of Labor-Baby A: 27 hours and 47 minutes Placenta Cultured: No Placenta Status: Delivered Baby A Gender: Female Gestational Status: Term (39-41.6 wks) Gestational Age in Weeks/Days: 39 Weeks and 0 Days weight: 9 lb 12.44 oz Weight Comment: 4435 gms Length-Baby A: 19.75 in Score-1 Minute Interval(Baby A) Heart Rate-1 minute: 100 BPM or Greater Respiratory Effort- 1 minute: Slow Respiration/Weak Cry Muscle Tone-1 minute: Minimal Flexion/Extension Reflex Response-1 minute: Prompt Response Color-1 minute: Pallor or Cyanosis Total Score-1 minute: 6 Score-5 Minute Interval(Baby A) Heart Rate- 5 minute: 100 BPM or Greater Respiratory Effort-5 minute: Slow Respiration/Weak Cry Muscle Tone-5 minute: Active Movement Reflex Response-5 minute: Prompt Response Color-5 minute: Bluish Hands or Feet Total Score- 5 minute: 8 Procedure Procedures: Cord Blood Collection Interventions Pain Management Interventions: Epidural.
[2024-04-02] MEDS: Citalopram 20 MG TAB 40 MG PO (09:00)
[2024-04-02] MEDS: Levothyroxine 150 MCG TAB PO (09:00)
[2024-04-02] MEDS: Acetaminophen 325 MG TAB 650 MG PO ×2 (11:20→19:28)
[2024-04-02] MEDS: Ibuprofen 600 MG TAB PO ×2 (11:20→19:30)
[2024-04-02] MEDS: Hamamelis Leaf/Glycerin 100 EACH BOX PR (11:34)
[2024-04-02] MEDS: Dibucaine 1% 28 GM TUBE TP (11:34)
[2024-04-03 02:00] VITALS: BP 114/69; PULSE 70; RESP 18; TEMP 37.1
--- NOTE | 2024-04-03 09:45 | W.ANESPOSTOP ---
Postoperative Evaluation Date, Time and Location Date Performed: 04/03/24 Time Performed: 09:35 Patient Location: Obstetrics Vital Signs Most Recent Imported Vital Signs: Most Recent Vital Signs Temp Pulse Resp BP Pulse Ox 37.1 C 70 18 114/69 97 04/03/24 02:00 04/03/24 02:00 04/03/24 02:00 04/03/24 02:00 04/02/24 15:55 Pain Score Most Recent Pain Score: Most Recent Pain Score Pain Level [Genital] 2 04/02/24 20:00 Pain Level 3 04/02/24 19:30 Assessment Mental Status: Awake (Alert & Oriented to Patient Baseline) Airway and Respiratory Function: Patent airway with normal (patient baseline) respiratory exam Cardiovascular Function: Hemodynamically Stable Hydration Status: Adequately Hydrated Nausea & Vomiting: No Nausea or Vomiting Pain: Pain is tolerable per patient Peripheral Nerve Block: Patient did not receive a nerve block Teaching Patient Teaching: Discussed Safe Use of Pain Medication Given Recent Anesthesia Postoperative Comments:: Miss Moise is evalutated post epidural placement for a vaginal delivery. She is pleasantly sitting holding her child. She expresses overall satisfaction with the epidural experience. She is neurologically intact, she has regained full sensation back to baseline, she is hemodynamically stable, respiratory status back to baseline, she is tolerating PO nutrition without N/V, and is in no acute distress. All questions sought and answered.
--- NOTE | 2024-04-03 09:47 | W.PM.OBPNV1 ---
Date of service: 04/03/24 Time of Service: 09:47 Assessment and Plan Assessment and plan (1) Term delivered: Status: Acute Assessment and plan: A: PPD#1, nml recovery Satisfied with experience P: Planning for discharge tomorrow May choose POP's for BCM Good support from family in place Subjective Subjective Patient comments: No complaints, Pain well controlled, Tolerating diet and Flatus present Patient's Mood: happy [place] baby status: Doing well, Nursing well, Rooming in and Strong Bonding Observed [place] feeding status: Exclusively breast feeding Exam Physical Exam Vital signs: Temp Pulse Resp BP Pulse Ox 98.8 F 70 18 114/69 97 04/03/24 02:00 04/03/24 02:00 04/03/24 02:00 04/03/24 02:00 04/02/24 15:55 Vital Signs Reviewed: Yes Constitutional Constitutional: no acute distress and cooperative HEENT Exam HEENT Exam: Normal Neck Exam Neck Exam: Normal Breast Exam Bilateral: Breast Exam: Normal and Tender Nipple Exam: Normal and Uninjured Respiratory Exam Respiratory Exam: Normal Cardiovascular Exam Cardiovascular Exam: Normal Abdominal Exam Abdomen: Other (soft, nontender) Fundal Exam Fundus: Below Umbilicus and Firm Rectal Exam Rectal Exam: Normal Exam Perineum: Intact Extremities Exam Extremity Exam: Normal, Full ROM and Warm to Touch Back/Spine/Pelvis Exam Back Exam: Normal Skin Exam Skin Exam: Normal Neurological Exam Neurological Exam: Normal Psychiatric Exam Psychiatric Exam: Normal
[2024-04-03] MEDS: Acetaminophen 325 MG TAB 650 MG PO ×2 (09:56→20:00)
[2024-04-03] MEDS: Levothyroxine 150 MCG TAB PO (09:56)
[2024-04-03] MEDS: Citalopram 20 MG TAB 40 MG PO (09:56)
[2024-04-03] MEDS: Ibuprofen 600 MG TAB PO ×2 (09:56→20:00)
[2024-04-03] MEDS: Docusate Sodium 100 MG CAP PO (09:57)
[2024-04-03 10:00] VITALS: PULSE 75; RESP 18; TEMP 36.8; O2SAT 98
[2024-04-03 13:34] VITALS: PULSE 78; RESP 16; TEMP 36.6; O2SAT 98
[2024-04-03 16:00] VITALS: BP 134/88; PULSE 71; RESP 16; TEMP 36.6; O2SAT 99
[2024-04-03 20:00] VITALS: BP 131/82; PULSE 65; RESP 18; TEMP 36.7
[2024-04-04] MEDS: Acetaminophen 325 MG TAB 650 MG PO (07:46)
[2024-04-04] MEDS: Citalopram 20 MG TAB 40 MG PO (07:47)
[2024-04-04] MEDS: Ibuprofen 600 MG TAB PO (07:47)
[2024-04-04] MEDS: Levothyroxine 150 MCG TAB PO (07:47)
[2024-04-04 09:44] VITALS: BP 117/78; PULSE 72; RESP 20; TEMP 36.8; O2SAT 97
--- NOTE | 2024-04-04 14:26 | DSE_ITS ---
Date of service: 04/04/24 Time of Service: 14:26 DS: Diagnosis Discharge Diagnosis (1) Term delivered: Status: Acute Asessment and Plan: Caring for baby independently. Pain is managed well with oral analgesics. Voiding without difficulty. well but having painful nipples. A - stable mother and baby , Post day 2 P - Discharge to home. Routine post instructions. [facility]. (2) Depression: Asessment and Plan: continue citalopram. Signs of depression reviewed. Discharge Plan Disposition Patient Disposition: Home Condition: Good Discharge Details Reason For Visit: term labor Admit Date/Time: 04/01/24 23:36 Admit Provider: Linnette Villagran Attending Provider: Linnette Villagran Primary Care Provider: Yasemin Caballero Hospital Course Hospital Course: shortly after admission, nml course Home Meds and New Rx's Prescriptions: No Action One A Day Women's DHA 28 mg iron- 800 mcg combo pack PO citalopram 20 mg tablet 40 mg PO DAILY Qty: 120 2RF levothyroxine [Levoxyl] 150 mcg tablet 150 mcg PO DAILY Qty: 90 4RF Discharge Instructions Additional Instructions: Please keep your 2 and 6 week mortising machine operator appointments, call for any and all concerns. Stand Alone Forms: BC Instructions, BC Post Vaginal Deliver Activity:: Activity as Tolerated Equipment/Supplies:: No Equipment Needed Diet:: Normal Diet Discharge Orders Discharge Orders: Discharge Order (Routine); Ordered 04/04/24 Ordered By: Lidia Cazares Discharge Data Discharge Date/Time-TO BE ENTERED AT DEPARTURE: 04/04/24 11:20 OB:DS Summary Summary Vaginal Delivery Method: Spontaneaous Episiotomy Description: None Laceration Description: None Laceration Extension: N/A Contraception Discussed Contraception Discussed: Yes Contraceptive Plan: Undecided, Infant Gender-Baby A: Female weight: 9 lb 12.44 oz Status at Discharge Functional status at discharge: independent ambulation Overall status at discharge: patient is back to baseline Mental Status: mental status grossly normal Speech and Movement: speech and movement normal Mood: congruent mood Affect: normal affect Quality:SDOH Health Related Social Needs: No Data to Display Exam Physical Exam Vital signs: Temp Pulse Resp BP Pulse Ox 98.2 F 72 20 117/78 97 04/04/24 09:44 04/04/24 09:44 04/04/24 09:44 04/04/24 09:44 04/04/24 09:44 Vital Signs Reviewed: Yes Constitutional Constitutional: no acute distress HEENT Exam HEENT Exam: Normal Respiratory Exam Respiratory Exam: Normal Cardiovascular Exam Cardiovascular Exam: Normal Fundal Exam Fundus: Below Umbilicus and Firm Extremities Exam Extremity Exam: Normal Skin Exam Skin Exam: Normal Psychiatric Exam Psychiatric Exam: Normal PFSH All Active Problems (Updated 04/03/24 @ 09:47 by Linnette Villagran) Term delivered (Acute) Anemia affecting (Acute) Cholelithiasis (Acute) Medical History (Updated 04/03/24 @ 09:47 by Linnette Villagran) Term Polyhydramnios affecting in third trimester borderline, AUDRA 24.3 at 32 wks Large for gestational age fetus affecting management of mother Normal labor Nausea and vomiting during prior to 22 weeks gestation Early stage of History of pre-eclampsia in prior , currently in first trimester Chronic abdominal pain hyda scan and abdominal US and Cat scan neg History of placenta accreta Found on path evaluation of placenta. No complication during delivery. Vaginal delivery 05/05/2021. Di/Di twin gestation. No complications Hip pain Gestational diabetes Depression citalopram 40 mg daily Hypothyroid (04/21/14) Surgical History Appendectomy Age 11yrs Family History Mother Alzheimers disease Father Diabetes Hyperlipidemia Thyroid disorder hypothyroid Grandmother Lung cancer maternal Diabetes Grandmother Breast cancer paternal Diabetes Sister Thyroid disorder hyperthyroid, resolved after Social History Smoking/Tobacco Use Status: Former Tobacco Use Quit Date: 05/18/20 Tobacco: How many years used: 12 Quit status: has quit before Smoking risk assessment performed?: Yes Alcohol Intake: never Drug use: Never Substance use type: does not use Household members: significant other, children and other Details: S- Baby boy Noel [place]. Baby boy Eric Hill Number of Children: 1 Education Level: college current occupation: Nurse at [employer] Do you feel safe at home: Yes Do you feel safe in your relationship?: Yes History History 2 Para 1 Hx # Term Pregnancies 0 Multiple births 1 Hx # Pregnancies 1 Ectopic pregnancies 0 AB induced 0 Hx Number of Living Children 2 AB spontaneous 0 Past Pregnancies Del. Date GA/Weeks # Preg Succ Route Wgt Sex Labor Lgth Anesth esia Location Prov Complic 05/05/21 36 Yes Yes vaginal 5 lb 9.5 oz Male 22 hrs regional [facility] - Dr. King 05/05/21 36 Yes Yes vaginal 5 lb 15 oz Male 22 hrs regional Delivery Date: 05/05/21 Last Updated by: Lidia Cazares CNM IOL for pre-eclampsia and diet controlled GDM Yao Placenta accreta spectrum stage 1 on placental pathology Delivery Date: 05/05/21 Last Updated by: Linnette Hill DS: Data Vitals/I&O Vitals and I&O: Vital Signs Temperature 98.2 F 04/04/24 09:44 Temperature Source Oral 04/04/24 09:44 Pulse 72 04/04/24 09:44 Pulse Rhythm Regular 04/03/24 20:00 Respiratory Rate 20 04/04/24 09:44 Respiratory Depth Normal 04/03/24 08:37 Blood Pressure 117/78 04/04/24 09:44 Blood Pressure Mean 91 04/04/24 09:44 Pulse Oximetry 97 04/04/24 09:44 Oxygen Delivery Method Room Air 04/02/24 00:22 Oxygen Flow Rate 0 04/02/24 00:22 Pain Level 2 04/03/24 20:00 Intake & Output 04/03/24 04/04/24 04/04/24 23:59 11:59 23:59 Other: Urine Color Pale
== END 2024-04-04 11:20 | disposition home or self-care (01) | DRG 807 ==
PROVIDERS: Admitting Provider Advanced Practice Midwife; PCP Nurse Practitioner Family; Visit Provider Advanced Practice Midwife
DX: O40.3XX0 Polyhydramnios, third trimester, not applicable or unspecified (principal); Z37.0 Single live birth; Z3A.39 39 weeks gestation of pregnancy; O99.824 Streptococcus B carrier state complicating childbirth; O99.344 Other mental disorders complicating childbirth; F32.A Depression, unspecified; O99.284 Endocrine, nutritional and metabolic diseases complicating childbirth; E03.9 Hypothyroidism, unspecified; O99.02 Anemia complicating childbirth; D64.9 Anemia, unspecified; O77.0 Labor and delivery complicated by meconium in amniotic fluid; O36.63X0 Maternal care for excessive fetal growth, third trimester, not applicable or unspecified
CPT/HCPCS: 36415; 85027; 86850; 86900; 86901

== ENCOUNTER 2024-09-17 16:21 | Outpatient (REF) | payer OTHER, SELFPAY ==
[2024-09-19 12:59] LABS: Chlamydia Result Negative (Negative); GC Result Negative (Negative)
== END 2024-09-17 16:22 | disposition home or self-care (01) ==
LOC: LBN 16:21
PROVIDERS: PCP Nurse Practitioner Family; Visit Provider Obstetrics & Gynecology
DX: A64 Unspecified sexually transmitted disease (principal); Z11.3 Encounter for screening for infections with a predominantly sexual mode of transmission
CPT/HCPCS: 87491; 87591

== ENCOUNTER 2025-01-15 10:04 | Outpatient (REF) | payer OTHER, SELFPAY ==
[2025-01-15 15:38] LABS: HCT 38.2 % (36.0-46.0); HGB 12.3 g/dL (11.2-15.7); MCH 26.9 pg (27.0-33.0); MCHC 32.2 % (32.0-36.0); MCV 84 fL (80-95); MPV 8.8 fL (8.0-11.0); Platelet Count 370 10^3/uL (130-400); RBC 4.57 10^6/uL (3.93-5.22); RDW 13.2 % (11.7-14.6); RDW-SD 40.1 fL; WBC 9.83 10^3/uL (4.4-10.8)
[2025-01-15 17:10] LABS: ALT 19 U/L (14-59); AST 17 U/L (15-37); Albumin 3.5 g/dL (3.4-5.0); Alkaline Phosphatase 62 U/L (46-116); Anion Gap 9.9 mmol/L (3-11); BUN 10 mg/dL (7-18); Bilirubin, Total 0.4 mg/dL (0.2-1.0); CO2 26.1 mmol/L (21.0-32.0); Calcium 9.5 mg/dL (8.5-10.1); Chloride 102 mmol/L (98-107); Estimated GFR 100.33 (mL/min/1.73m2); Glucose 97 mg/dL (74-106); Potassium 4.5 mmol/L (3.5-5.1); Sodium 138 mmol/L (136-145); TSH 3.98 uIU/mL (0.36-3.74); Total Protein 7.5 g/dL (6.4-8.2)
== END 2025-01-15 10:05 | disposition home or self-care (01) ==
LOC: NCHCN 10:04
PROVIDERS: PCP Nurse Practitioner Family; Visit Provider Nurse Practitioner Family
DX: G25.81 Restless legs syndrome (principal); Z00.00 Encounter for general adult medical examination without abnormal findings
CPT/HCPCS: 80053; 85027; 84443

== ENCOUNTER 2025-04-03 12:36 | Outpatient (REF) | payer OTHER, SELFPAY ==
[2025-04-03 13:07] LABS: Abs Immature Grans 0.03 10^3/uL (0.0-0.06); HCT 39.9 % (36.0-46.0); HGB 13.1 g/dL (11.2-15.7); Immature Grans % 0.3 %; MCH 27.4 pg (27.0-33.0); MCHC 32.8 % (32.0-36.0); MCV 84 fL (80-95); MPV 8.9 fL (8.0-11.0); Platelet Count 357 10^3/uL (130-400); RBC 4.78 10^6/uL (3.93-5.22); RDW 13.2 % (11.7-14.6); RDW-SD 39.9 fL; WBC 9.27 10^3/uL (4.4-10.8)
[2025-04-03 13:34] LABS: ALT 18 U/L (14-59); AST 11 U/L (15-37); Albumin 3.7 g/dL (3.4-5.0); Alkaline Phosphatase 64 U/L (46-116); Anion Gap 11.0 mmol/L (3-11); BUN 10 mg/dL (7-18); Bilirubin, Total 0.3 mg/dL (0.2-1.0); CO2 25.0 mmol/L (21.0-32.0); Calcium 9.1 mg/dL (8.5-10.1); Calculated LDL 164 mg/dL (<100); Chloride 100 mmol/L (98-107); Cholesterol 263 mg/dL (<200); Estimated GFR 99.71 (mL/min/1.73m2); Glucose 95 mg/dL (74-106); HDL Cholesterol 41 mg/dL (>or=50); Potassium 4.2 mmol/L (3.5-5.1); Sodium 136 mmol/L (136-145); Total Protein 7.8 g/dL (6.4-8.2); Triglyceride 292 mg/dL (<150)
[2025-04-03 13:51] LABS: Amylase 22 U/L (25-115); C-Reactive Protein 1.40 mg/dL (<or=0.5); Hemoglobin A1C 5.7 % (<5.7); Lipase 23 U/L (<78)
== END 2025-04-03 12:37 | disposition home or self-care (01) ==
LOC: LBN 12:36
PROVIDERS: PCP Nurse Practitioner Family; Visit Provider Nurse Practitioner Gerontology
DX: E87.20 Acidosis, unspecified (principal); D63.1 Anemia in chronic kidney disease; R73.03 Prediabetes; R74.8 Abnormal levels of other serum enzymes; R79.82 Elevated C-reactive protein (CRP); Z13.220 Encounter for screening for lipoid disorders
CPT/HCPCS: 80053; 80061; 83690; 82150; 83036; 85025; 86140